=== PATIENT | female | born 1950 | race Caucasian/White ===

== ENCOUNTER → 2019-08-16 | Outpatient (CLI) | payer SELFPAY | PROVIDERS: Family Provider Internal Medicine; Visit Provider Internal Medicine | DX: R05 Cough (principal); Z87.891 Personal history of nicotine dependence ==

== ENCOUNTER → 2019-08-26 14:33 | Outpatient (BNVA) | payer MEDICARE, OTHER, SELFPAY | PROVIDERS: Family Provider Internal Medicine; PCP Internal Medicine; Visit Provider Internal Medicine Rheumatology | DX: M05.79 Rheumatoid arthritis with rheumatoid factor 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 systems involvement (principal); M81.0 Age-related osteoporosis without current pathological fracture; Z79.899 Other long term (current) drug therapy | CPT/HCPCS: 99214 ==

== ENCOUNTER 2019-08-29 09:20 | Outpatient (CLI) | payer MEDICARE, OTHER, SELFPAY | END 2019-08-29 09:21 | disposition home or self-care (01) | LOC: RHEOACUTE 09-12 14:55 | PROVIDERS: Family Provider Internal Medicine; PCP Internal Medicine; Visit Provider Internal Medicine Rheumatology | DX: M05.79 Rheumatoid arthritis with rheumatoid factor 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 systems involvement (principal); Z51.81 Encounter for therapeutic drug level monitoring | CPT/HCPCS: J3262 ==

== ENCOUNTER → 2019-08-29 09:36 | Outpatient (BNVA) | payer MEDICARE, OTHER, SELFPAY | PROVIDERS: Family Provider Internal Medicine; PCP Internal Medicine; Referring Provider Internal Medicine; Visit Provider Internal Medicine Rheumatology | DX: M05.79 Rheumatoid arthritis with rheumatoid factor 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 systems involvement (principal); Z79.899 Other long term (current) drug therapy | CPT/HCPCS: 36415; 96365; 84460; 85025; 85651; 86140; 96374; J3262 ==

== ENCOUNTER 2019-10-12 11:19 | Outpatient (CLI) | payer MEDICARE, OTHER, SELFPAY ==
[2019-10-12 11:45] VITALS: BP 131/75; PULSE 93; RESP 16; TEMP 36.5; O2SAT 97
[2019-10-12 14:00] VITALS: BP 115/80; PULSE 94; RESP 18; TEMP 36.6; O2SAT 90
== END 2019-10-12 11:20 | disposition home or self-care (01) ==
LOC: RHEOACUTE 11:20
PROVIDERS: Family Provider Internal Medicine; PCP Internal Medicine; Visit Provider Internal Medicine Rheumatology
DX: M05.79 Rheumatoid arthritis with rheumatoid factor 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 systems involvement (principal); Z79.899 Other long term (current) drug therapy; M81.0 Age-related osteoporosis without current pathological fracture
CPT/HCPCS: 36415; 80076; 82565; 96365; J3262

== ENCOUNTER 2019-11-29 14:58 | Outpatient (CLI) | payer MEDICARE, OTHER, SELFPAY ==
[2019-11-29 15:10] VITALS: BMI 26.2
[2019-11-29 15:15] VITALS: BP 109/72; PULSE 116; RESP 20; TEMP 36.6; O2SAT 93
[2019-11-29 16:55] VITALS: BP 118/72; PULSE 102; RESP 20; TEMP 37.1; O2SAT 92
== END 2019-11-29 14:59 | disposition home or self-care (01) ==
LOC: RHEOACUTE 14:59
PROVIDERS: Family Provider Internal Medicine; PCP Internal Medicine; Visit Provider Internal Medicine Rheumatology
DX: M05.79 Rheumatoid arthritis with rheumatoid factor 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 systems involvement (principal); Z79.899 Other long term (current) drug therapy
CPT/HCPCS: 36415; 80076; 82565; 85025; 85651; 86140; 96365; J3262

== ENCOUNTER 2019-12-28 12:57 | Outpatient (CLI) | payer MEDICARE, OTHER, SELFPAY ==
[2019-12-28 13:15] VITALS: BP 107/65; PULSE 86; RESP 20; TEMP 36.6; O2SAT 93
[2019-12-28 15:24] VITALS: BP 101/65; PULSE 88; RESP 18; TEMP 36.5; O2SAT 90
== END 2019-12-28 12:58 | disposition home or self-care (01) ==
LOC: RHEOACUTE 12:59
PROVIDERS: Family Provider Internal Medicine; PCP Internal Medicine; Visit Provider Internal Medicine Rheumatology
DX: M05.79 Rheumatoid arthritis with rheumatoid factor 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 systems involvement (principal)
CPT/HCPCS: 96365; J3262

== ENCOUNTER → 2019-12-29 10:40 | Outpatient (BNVA) | payer MEDICARE, OTHER, SELFPAY | PROVIDERS: Family Provider Internal Medicine; PCP Internal Medicine; Visit Provider Internal Medicine Rheumatology | DX: Z79.899 Other long term (current) drug therapy (principal); Z11.59 Encounter for screening for other viral diseases; M05.79 Rheumatoid arthritis with rheumatoid factor 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 systems involvement; Z72.89 Other problems related to lifestyle | CPT/HCPCS: 36415; 80076; 82565; 82728; 85025; 85651; 86140; 86803 ==

== ENCOUNTER 2020-01-31 10:54 | Outpatient (CLI) | payer MEDICARE, OTHER, SELFPAY ==
--- NOTE | 2020-01-31 11:16 | PC.NURSE ---
1115 A&0 X4. refuses PO tylenol and Benadryl as pre medication. States will not take them. Explained of pre medication.
[2020-01-31 11:17] VITALS: BP 106/62; PULSE 91; RESP 18; TEMP 36.6; O2SAT 93
[2020-01-31 13:15] VITALS: BP 108/52; PULSE 72; RESP 18; TEMP 36.6; O2SAT 92
== END 2020-01-31 10:55 | disposition home or self-care (01) ==
LOC: RHEOACUTE 10:55
PROVIDERS: Family Provider Internal Medicine; PCP Internal Medicine; Visit Provider Internal Medicine Rheumatology
DX: M05.79 Rheumatoid arthritis with rheumatoid factor 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 systems involvement (principal)
CPT/HCPCS: 96365; J3262

== ENCOUNTER 2020-03-01 13:47 | Outpatient (CLI) | payer MEDICARE, OTHER, SELFPAY ==
[2020-03-01 13:56] VITALS: BP 120/74; PULSE 96; RESP 16; TEMP 36.8; O2SAT 96
[2020-03-01] MEDS: acetaminophen 325 mg Tablet 975 MG PO (14:05)
[2020-03-01] MEDS: diphenhydrAMINE 25 mg Capsule PO (14:11)
[2020-03-01 16:30] VITALS: BP 117/75; PULSE 98; RESP 16; TEMP 36.7; O2SAT 98
== END 2020-03-01 13:48 | disposition home or self-care (01) ==
LOC: RHEOACUTE 13:47
PROVIDERS: Family Provider Internal Medicine; PCP Internal Medicine; Visit Provider Internal Medicine Rheumatology
DX: M81.0 Age-related osteoporosis without current pathological fracture (principal); R91.1 Solitary pulmonary nodule; M05.79 Rheumatoid arthritis with rheumatoid factor 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 systems involvement; J43.9 Emphysema, unspecified; J44.9 Chronic obstructive pulmonary disease, unspecified; M79.641 Pain in right hand; M79.642 Pain in left hand; Z11.59 Encounter for screening for other viral diseases; Z79.899 Other long term (current) drug therapy; Z71.89 Other specified counseling
CPT/HCPCS: 80076; 82310; 82565; 82607; 82728; 83540; 83550; 84439; 84443; 85025; 85651; 86140; 99214; J3262

== ENCOUNTER 2020-03-15 09:34 | Outpatient (CLI) | payer MEDICARE, OTHER, SELFPAY ==
--- NOTE | 2020-03-15 14:17 | PFTS_ITS ---
Date of Study:03/15/20 Date of Dictation: MECHANICS: Forced vital capacity (FVC) is reduced. Forced expiratory volume in one second (FEV1) is reduced. FEV1/FVC is reduced. FLOW VOLUME LOOP: Reduced flow at all lung volumes with significant scooping. LUNG VOLUMES: Total lung capacity (TLC) is increased. Residual volume (RV) is increased. DIFFUSING CAPACITY FOR CARBON MONOXIDE: Moderately reduced. INTERPRETATION: The pulmonary function tests are consistent with moderate obstruction. Lung volumes are consistent with hyperinflation and air trapping. Gas exchange (DLCO) is moderately reduced. MTDD
== END 2020-03-15 09:35 | disposition home or self-care (01) ==
LOC: RT 09:35
PROVIDERS: Family Provider Internal Medicine; PCP Internal Medicine; Visit Provider Internal Medicine Critical Care Medicine
DX: J44.9 Chronic obstructive pulmonary disease, unspecified (principal)
CPT/HCPCS: 94060; 94726; 94729; J7611

== ENCOUNTER 2020-03-17 12:48 | Emergency (ER) | payer MEDICARE, OTHER, SELFPAY ==
[2020-03-17] VITALS (8 sets, daily range): BP systolic 89–110; BP diastolic 54–62; PULSE 77–89; RESP 16–27; TEMP 37.1; O2SAT 89–97; BMI 26.4
--- NOTE | 2020-03-17 13:35 | XRR_ITS ---
PROCEDURE INFORMATION: Exam: XR Chest, 1 View Exam date and time: 03/17/2020 1:37 PM Age: 69 years old Clinical indication: Cough and shortness of breath; Additional info: Cough, SOB, chest pain TECHNIQUE: Imaging protocol: XR of the chest Views: 1 view. COMPARISON: [facility] Chest 2 views 08/16/2019 11:06 AM FINDINGS: Tubes, catheters and devices: There is a right central line in place extending into the SVC. Lungs: Interstitial congestion is present in the right lower lobe increased since prior examination Pleural space: Unremarkable. No pleural effusion. No pneumothorax. Heart/Mediastinum: Unremarkable. No cardiomegaly. Bones/joints: Unremarkable. Other findings: Otherwise similar findings seen comparing to prior examination XR/XR chest 1V portable [id number] IMPRESSION: 1. Right central line in good position. 2. Right lower lobe interstitial congestion
--- NOTE | 2020-03-17 13:36 | ECG_ITS ---
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 Measurements Intervals [place] Rate: 86 P: 0 [place]: 151 QRS: 38 QRSD: 81 T: 41 QT: 346 QTc: 415 Interpretive Statements SINUS RHYTHM Compared to ECG 10/03/2018 01:04:33 No significant changes Electronically Signed On 03-17-2020 20:42:40 CDT by Adenike Ruano M.D. [email or web address] [email or web address].[employer]/store/NU/[id number] f
--- NOTE | 2020-03-17 13:39 | W.ED.SOB ---
HPI - SOB/Dyspnea General: Chief Complaint: Shortness of Breath/Dyspnea Stated Complaint: low o2 Time Seen by Provider: 03/17/20 13:21 History of Present Illness: HPI Narrative: This patient is a 69-year-old female presenting with shortness of breath, chest pain and diarrhea. She has a history of COPD and feels as though she is having an exacerbation. She has been having increasing shortness of breath for about 3 days. She also has been having chest pain which is something she has not had in the past. This started 2 days ago and is intermittent. She is not able to really identify a pattern to when it occurs. She has been having diarrhea for about a week. She said this started shortly after she had surgery on her right eye for cataracts. Off work for a year because of brain aneurysms that required multiple interventions. She also has rheumatoid arthritis and is on leflunomide. She denies any COVID exposure. She said she really has not been going out at all. No fever. No sick contacts. She has a productive cough but that is unchanged from her baseline. Shortness of breath is made worse by exertion and better by oxygen. She used her inhaler this morning without relief. Diarrhea is worse with any intake of food or fluid. MD elicited complaint: shortness of breath, cough and chest pain Pertinent past history: COPD Onset (ago): week(s) (2 days for the chest pain, 3 days for shortness of breath, 1 week for diarrhea) Timing: constant Severity: moderate Associated symptoms: Reports chest pain, nausea (She has chronic nausea since her aneurysm procedures but she threw up yesterday which is unusual) and vomiting; Deny abdominal pain or fever(s) Review of Systems General: Reports: 10 or more systems reviewed and unremarkable except in HPI and below Const: Denies: fever(s), chills, fatigue or malaise Eyes: Denies: change in vision ENMT: Denies: odynophagia Card: Reports: chest pain and dyspnea on exertion; Denies: swelling of feet/ankles Resp: Reports: dyspnea, productive cough and wheezing; Denies: non-productive cough GI: Reports: nausea (She has chronic nausea since her aneurysm procedures but she threw up yesterday which is unusual) and vomiting; Denies: abdominal pain : Denies: flank pain or difficulty voiding Musc: Denies: neck pain or back pain Skin/Breast: Denies: rash Neuro: Denies: headache(s), numbness in extremities or weakness in extremities Rick/Lymph: Denies: easy bruising or easy bleeding PFSH ED PFSH: Medical History COPD (chronic obstructive pulmonary disease) Emphysema of lung High risk medication use Immunization counseling Rheumatoid arthritis with rheumatoid factor 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 systems involvement Surgical History H/O brain surgery x7 H/O tubal ligation Family History Other CAD (coronary artery disease) Cancer Rheumatoid arthritis Stroke Denies family history of Diabetes Chronic kidney disease (CKD) Systemic lupus erythematosus (SLE) in adult Hypertension Social History Smoking and tobacco status: former smoker Quit status (tobacco): has quit using tobacco Year quit tobacco: 2004 - 1PPD x 50 Years Alcohol intake: never Lives independently: Yes Household members: spouse Marital status: Current occupational status: unemployed History of recent travel: No Current gender identity: Female Physical Exam Const: COMMON NORMALS: no acute distress, patient oriented x3, no limitations and alert GENERAL APPEARANCE: cooperative and comfortable HENMT: HEAD & SCALP: normal to inspection FACE & SINUS: normal facial exam Eye: GENERAL EYE: appearance normal, both eyes and all related structures Neck/C-Spine: COMMON NORMALS: supple, no meningeal signs and no JVD Chest: COMMONS NORMALS: normal inspection of the chest Resp: COMMON NORMALS: normal respiratory effort, No use of accessory muscles and clear to auscultation bilaterally AUSCULTATION: clear to auscultation bilaterally, rhonchi right upper and right lower and wheezes throughout Cardio: COMMON NORMALS: no JVD, regular rate, regular rhythm and No murmurs present (Cardio) RATE: regular rate RHYTHM: regular rhythm GI: COMMON NORMALS: Normal to inspection, nondistended, normoactive bowel sounds present, Soft to palpation and non-tender INSPECTION: Yes normal to inspection AUSCULTATION: Yes normoactive bowel sounds PALPATION: Yes Soft to palpation Back/Pelvis: COMMON NORMALS: thoracic and lumbar spine normal to inspection Extremity: COMMON NORMALS: normal to inspection Neuro: COMMON NORMALS: patient oriented x3, moves all extremities, no focal motor deficits and no sensory deficits noted SENSORIUM/ORIENTATION: Yes alert MENINGEAL SIGNS: Yes no meningeal signs Psych: COMMON NORMALS: mental status grossly normal, cooperative and normal affect Skin: COMMON NORMALS: no rashes or lesions noted and turgor normal GENERAL SKIN EXAM: no rashes or lesions noted and turgor normal Course ED course: Patient seems to have pneumonia based on her chest x-ray. There is really nothing about the presentation that makes me feel like it would be COVID rather than a simple community-acquired pneumonia. She did not want to be admitted to the hospital. We discussed that given her comorbidities of COPD and being on the rheumatoid arthritis medications that she is at risk for worsening condition. She understands it does not want to stay. She has oxygen at home. She can take oral medications she is not vomiting. Her labs were fairly unremarkable. Her white count is low but appears that that is count of her baseline. She is a little bit anemic as well but that also appears to be baseline. I offered her the option to return at any time should she change her mind about admission. I also asked her to please return if she is worse in any way. She agrees to do so. Vital Signs: Vital signs: Vital Signs Temperature 98.8 F 03/17/20 12:55 Pulse Rate 88 03/17/20 16:38 Respiratory Rate 19 H 03/17/20 16:38 Blood Pressure 98/55 03/17/20 16:38 Pulse Oximetry 97 03/17/20 16:38 MDM - SOB/Dyspnea Lab Data: Labs: Lab Results 03/17/20 03/17/20 03/17/20 Range/Units 13:25 13:25 13:25 WBC 3.2 L (4.0-10.0) 10^3/ uL RBC 2.75 L (4.1-5.3) 10^6/u L Hgb 9.2 L (11.5-15.3) g/dL Hct 30.3 L (37.0-47.0) % MCV 110.2 H (81-99) fL MCH 33.5 (28.0-34.0) pg MCHC 30.4 (30.0-36.0) g/dL RDW 13.5 (12.1-15.1) % Plt Count 126 L (130-400) 10^3/c mm MPV 10.5 H (7.4-10.4) fL Neut % (Auto) 71.9 % Lymph % (Auto) 16.4 % [place] % (Auto) 6.8 % Eos % (Auto) 3.7 % Baso % (Auto) 0.6 % Neut # (Auto) 2.33 (1.8-7.7) 10^3/u L Lymph # (Auto) 0.5 L (0.8-4.8) 10^3/u L [place] # (Auto) 0.2 (0.2-0.9) 10^3/u L Eos # (Auto) 0.1 (0.0-0.8) 10^3/u L Baso # (Auto) 0.0 (0.0-0.1) 10^3/u L Nucleated RBC % (a uto) 0 % Nucleated RBCs # 0.0 /100WBC Sodium 136 (136-145) mmol/L Potassium 3.8 (3.5-5.1) mmol/L Chloride 103 (98-107) mmol/L Carbon Dioxide 24 (22-29) mmol/L Anion Gap 12.8 (5-19) BUN 8 (8-23) mg/dL Creatinine 0.9 (0.5-0.9) mg/dL GFR Calculation 61.9 L (90-130) mL/min Glucose 110 (65-115) mg/dL Calculated Osmolal ity 279 L (285-295) mOsm/k g Calcium 8.7 (8.5-10.5) mg/dL Total Bilirubin 0.2 (0.15-1.2) mg/dL AST 27 (0-32) U/L ALT 14 (0-33) U/L Alkaline Phosphata se 98 (35-105) IU/L Troponin T Baselin e 6 (0-10) ng/L Troponin T 120 Min sri (0-10) ng/L NT-Pro-B Natriuret Pep 493 H (0-125) pg/mL Total Protein 5.9 L (6.6-8.7) g/dL Albumin 4.3 (3.5-5.2) g/dL Globulin 1.6 (1.3-4.6) g/dL Lipase 15 (13-60) U/L 03/17/20 Range/Units 15:29 WBC (4.0-10.0) 10^3/ uL RBC (4.1-5.3) 10^6/u L Hgb (11.5-15.3) g/dL Hct (37.0-47.0) % MCV (81-99) fL MCH (28.0-34.0) pg MCHC (30.0-36.0) g/dL RDW (12.1-15.1) % Plt Count (130-400) 10^3/c mm MPV (7.4-10.4) fL Neut % (Auto) % Lymph % (Auto) % [place] % (Auto) % Eos % (Auto) % Baso % (Auto) % Neut # (Auto) (1.8-7.7) 10^3/u L Lymph # (Auto) (0.8-4.8) 10^3/u L [place] # (Auto) (0.2-0.9) 10^3/u L Eos # (Auto) (0.0-0.8) 10^3/u L Baso # (Auto) (0.0-0.1) 10^3/u L Nucleated RBC % (a uto) % Nucleated RBCs # /100WBC Sodium (136-145) mmol/L Potassium (3.5-5.1) mmol/L Chloride (98-107) mmol/L Carbon Dioxide (22-29) mmol/L Anion Gap (5-19) BUN (8-23) mg/dL Creatinine (0.5-0.9) mg/dL GFR Calculation (90-130) mL/min Glucose (65-115) mg/dL Calculated Osmolal ity (285-295) mOsm/k g Calcium (8.5-10.5) mg/dL Total Bilirubin (0.15-1.2) mg/dL AST (0-32) U/L ALT (0-33) U/L Alkaline Phosphata se (35-105) IU/L Troponin T Baselin e (0-10) ng/L Troponin T 120 Min sri 9.80 (0-10) ng/L NT-Pro-B Natriuret Pep (0-125) pg/mL Total Protein (6.6-8.7) g/dL Albumin (3.5-5.2) g/dL Globulin (1.3-4.6) g/dL Lipase (13-60) U/L Discharge Plan Discharge Patient Disposition: Home Clinical Impression: Pneumonia Qualifiers: Pneumonia type: due to unspecified organism Laterality: unspecified laterality Lung location: unspecified part of lung Qualified Code(s): J18.9 - Pneumonia, unspecified organism COPD (chronic obstructive pulmonary disease) Qualifiers: COPD type: unspecified COPD Qualified Code(s): J44.9 - Chronic obstructive pulmonary disease, unspecified Condition: Stable Prescriptions: New doxycycline hyclate 100 mg capsule 100 mg PO BID 10 Days Qty: 20 RF: 0 No Action cyclobenzaprine 10 mg tablet 10 mg PO TID PRN (Reason: UNKNOWN) RF: 0 ascorbic acid-collagen 125-740 mg capsule 1 cap PO DAILY RF: 0 folic acid 1 mg tablet 1 mg PO DAILY RF: 0 duloxetine [Cymbalta] 30 mg capsule,delayed release(DR/EC) 60 mg PO DAILY RF: 0 sertraline [Zoloft] 100 mg tablet 100 mg PO DAILY RF: 0 multivitamin Capsule 1 cap PO QAM RF: 0 levetiracetam 500 mg tablet 500 mg PO BID RF: 0 leflunomide 20 mg tablet 20 mg PO DAILY Qty: 90 RF: 0 ondansetron 4 mg tablet,disintegrating 4 - 8 mg PO Q6H PRN (Reason: Nausea) RF: 0 albuterol sulfate 2.5 mg /3 mL (0.083 %) solution for nebulization 2.5 mg INHALATION Q4H PRN (Reason: Shortness Of Breath) RF: 0 Trelegy Ellipta 100-62.5-25 mcg blister with device 1 inh INHALATION Q24H 90 Days Qty: 60 RF: 3 tramadol 50 mg Tablet 50 mg PO BID PRN (Reason: Pain) RF: 0 sulfasalazine 500 mg tablet 1,000 mg PO BID RF: 0 albuterol sulfate 90 mcg/actuation HFA aerosol inhaler 2 puff inhalation Q4H PRN (Reason: UNKNOWN) RF: 0 diclofenac sodium 1 % gel 2 gm TOPICAL QID PRN (Reason: UNKNOWN) RF: 0 prednisolone acetate 1 % drops,suspension 1 drp ophthalmic (eye) QID RF: 0 ibuprofen 200 mg Tablet 400 mg PO PRN RF: 0 turmeric 3 tab PO DAILY RF: 0 Discharge Orders: Discharge Order (Routine); Ordered 03/17/20 Ordered By: Angely Celis Referrals: Cornel Hu, [Primary Care Provider] - Discharge Diet: Usual diet Discharge Activity: Resume usual activity Patient Instructions: Pneumonia (ED) Activity Restrictions/Additional Instructions: PLEASE return to the emergency department immediately if you feel like you are worse in any way. Pneumonia can be very serious or life-threatening particularly with your other medical issues. Schedule follow-up appointment with Dr. Hu next week. Take the doxycycline as prescribed until all tablets are gone. Continue using your home oxygen. Coding Level of Care Code ED Emergency Communications Operator for [place] Fwd Exam Comprehensive
[2020-03-17 14:02] LABS: Basophils % 0.6 %; Eosinophils # 0.1 10^3/uL (0.0-0.8); Eosinophils % 3.7 %; Hematocrit 30.3 % (37.0-47.0); Hemoglobin 9.2 g/dL (11.5-15.3); Lymphocytes # 0.5 10^3/uL (0.8-4.8); Lymphocytes % 16.4 %; Mean Corpuscular HGB Conc 30.4 g/dL (30.0-36.0); Mean Corpuscular Hemoglobin 33.5 pg (28.0-34.0); Mean Corpuscular Volume 110.2 fL (81-99); Mean Platelet Volume 10.5 fL (7.4-10.4); Monocytes # 0.2 10^3/uL (0.2-0.9); Monocytes % 6.8 %; Neutrophils # 2.33 10^3/uL (1.8-7.7); Neutrophils % 71.9 %; Nucleated Red Blood Cells % 0 %; Platelet Count 126 10^3/cmm (130-400); Red Blood Count 2.75 10^6/uL (4.1-5.3); Red Cell Distribution Width 13.5 % (12.1-15.1); White Blood Count 3.2 10^3/uL (4.0-10.0)
[2020-03-17 14:16] LABS: Troponin(5th) Baseline 6 ng/L (0-10)
[2020-03-17 14:24] LABS: Alanine Aminotransferase 14 U/L (0-33); Albumin Level 4.3 g/dL (3.5-5.2); Alkaline Phosphatase 98 IU/L (35-105); Anion Gap 12.8 (5-19); Aspartate Amino Transferase 27 U/L (0-32); Blood Urea Nitrogen 8 mg/dL (8-23); Calcium 8.7 mg/dL (8.5-10.5); Carbon Dioxide 24 mmol/L (22-29); Chloride 103 mmol/L (98-107); Globulin 1.6 g/dL (1.3-4.6); Glomerular Filtration Rate 61.9 mL/min (90-130); Glucose 110 mg/dL (65-115); Lipase 15 U/L (13-60); NT Pro B Type Natriuretic Pept 493 pg/mL (0-125); Osmolality Calculated 279 mOsm/kg (285-295); Potassium 3.8 mmol/L (3.5-5.1); Sodium 136 mmol/L (136-145); Total Bilirubin 0.2 mg/dL (0.15-1.2); Total Protein 5.9 g/dL (6.6-8.7)
--- NOTE | 2020-03-17 15:36 | ECG_ITS ---
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 Measurements Intervals [place] Rate: 76 P: 37 [place]: 170 QRS: 50 QRSD: 82 T: 47 QT: 372 QTc: 420 Interpretive Statements SINUS RHYTHM Compared to ECG 03/17/2020 13:04:30 No significant changes Electronically Signed On 03-17-2020 20:48:10 CDT by Adenike Ruano M.D. [email or web address] mississippi medical centerComputewayne hospital.[employer] - [employer]/store/NU/[id number] f
[2020-03-17] MEDS: cefTRIAXone 1,000 MG in sodium chloride 0.9% (plus) 50 ML 100 MG IV (15:59)
[2020-03-17] MEDS: azithromycin 250 mg Tablet 500 MG PO (15:59)
[2020-03-17] MEDS: albuterol 8 gm MDI 2 PUFF INHALATION (16:12)
== END 2020-03-17 17:01 | disposition home or self-care (01) ==
PROVIDERS: Emergency Provider Emergency Medicine; PCP Internal Medicine
DX: J44.0 Chronic obstructive pulmonary disease with (acute) lower respiratory infection (principal); J18.9 Pneumonia, unspecified organism; Z87.891 Personal history of nicotine dependence
CPT/HCPCS: 12345; 36415; 71045; 80053; 83690; 83880; 84484; 85025; 93005; 94640; 96374; 99284; J0696; J3535; Q0144

== ENCOUNTER 2020-03-19 13:23 | Emergency (ER) | payer MEDICARE, OTHER, SELFPAY ==
[2020-03-19] VITALS (11 sets, daily range): BP systolic 89–124; BP diastolic 53–87; PULSE 77–95; RESP 14–27; TEMP 36.7; O2SAT 88–99; BMI 25.7
--- NOTE | 2020-03-19 14:13 | XR_ITS ---
WS: [id number] PORTABLE CHEST HISTORY: dyspnea/cough COMPARISON: 03/17/2020 COAGULATING OPERATOR shunt catheter projects over the RIGHT thorax. Lung volumes are decreased with thick interstitial markings at the lung bases, similar to the prior s tudy. Vasculature is normal. No pleural effusion or pneumothorax. Cardiac size: Normal. Mediastinum/Aorta: Mild atherosclerosis aorta. No osseous abnormality seen. XR/XR chest 1V portable [id number] IMPRESSION: Bibasilar areas of pneumonitis, RIGHT greater than LEFT.
--- NOTE | 2020-03-19 14:14 | ECG_ITS ---
[facility] Test Date: 2020-03-19 Pat Name: Whitney Dial Department: Room: Gender: Female Crystal Lapper: : 1950 Requested By: Chidi Howell Order Number: [id number] Ascencion MD: Adenike Ruano M.D. Measurements Intervals [place] Rate: 84 P: 31 [place]: 153 QRS: 33 QRSD: 78 T: 42 QT: 338 QTc: 402 Interpretive Statements SINUS RHYTHM Compared to ECG 03/17/2020 15:39:48 No significant changes Electronically Signed On 03-19-2020 20:32:33 CDT by Adenike Ruano M.D. [email or web address] Pharmaceuticalseast mississippi state hospitalUbiquigentcleveland clinic children's hospital for rehabilitation.pSi[employer]/store/OM/[id number]
[2020-03-19 14:41] LABS: Basophils % 0.4 %; Eosinophils % 1.3 %; Hematocrit 35.1 % (37.0-47.0); Hemoglobin 10.5 g/dL (11.5-15.3); Lymphocytes # 0.8 10^3/uL (0.8-4.8); Lymphocytes % 34.7 %; Mean Corpuscular HGB Conc 29.9 g/dL (30.0-36.0); Mean Corpuscular Hemoglobin 33.2 pg (28.0-34.0); Mean Corpuscular Volume 111.1 fL (81-99); Mean Platelet Volume 10.5 fL (7.4-10.4); Monocytes # 0.1 10^3/uL (0.2-0.9); Monocytes % 4.9 %; Neutrophils # 1.31 10^3/uL (1.8-7.7); Neutrophils % 58.3 %; Nucleated Red Blood Cells % 0 %; Platelet Count 99 10^3/cmm (130-400); Red Blood Count 3.16 10^6/uL (4.1-5.3); Red Cell Distribution Width 13.3 % (12.1-15.1); White Blood Count 2.3 10^3/uL (4.0-10.0)
--- NOTE | 2020-03-19 14:41 | W.ED.GENADLT ---
Documented by User: Chidi Larios DO 03/23/20 15:19 HPI - General Adult General: Chief complaint: General Medical Stated complaint: multiple complaints Time Seen by Provider: 03/19/20 13:42 History of Present Illness: HPI narrative: 69-year-old female she was seen 2 days ago here in the emergency room and offered admission and declined she returns today with the same problem that she feels is slightly worsened. When she was seen 2 days ago at the time of discharge she was discharged home on doxycycline. She has been taking it but has noticed it upsets her stomach. She has been having multiple watery stools daily. She denies any hematochezia or melena. She denies any vomiting has not had any hematemesis. She is very nauseated. She also feels like her breathing has worsened since she was here last she does use albuterol nebs at home and use 1 last this morning. She is not really been running a fever at all her baseline cough however has changed it is increased in volume and changed in character as well sputum is thicker and has changed color. Patient has been seeing Dr. Carmona for COPD and actually yesterday had a pulmonary function test done. She is on multiple inhaled medications including nebulizers for rescue as needed. Onset (ago): day(s) Location: abdomen Radiation: non-radiation Severity: severe Quality: aching Pain Consistency: constant Relieving factors: none Exacerbating factors: none Associated symptoms: Reports cough, decreased appetite, dyspnea, malaise, nausea, short of breath, vomiting, weakness and other (Diarrhea); Deny chest pain, confusion, fevers/chills, headache(s), rash, palpitations, seizures or syncope Treatments prior to arrival: other (Antidiarrheals and doxycycline given to her previously) Review of Systems Const: Reports: malaise ENMT: Denies: throat pain, ear or mastoid pain, nasal discharge or nasal congestion Card: Denies: chest pain, palpitations or syncope Resp: Reports: dyspnea GI: Reports: nausea and vomiting : Denies: flank pain, difficulty voiding, dysuria, urinary frequency or urinary urgency Skin/Breast: Denies: rash or pruritus Neuro: Denies: headache(s) or confusion PFS ED PFSH: Medical History COPD (chronic obstructive pulmonary disease) Emphysema of lung High risk medication use Immunization counseling Rheumatoid arthritis with rheumatoid factor 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 systems involvement Surgical History H/O brain surgery x7 H/O tubal ligation Family History Other CAD (coronary artery disease) Cancer Rheumatoid arthritis Stroke Denies family history of Diabetes Chronic kidney disease (CKD) Systemic lupus erythematosus (SLE) in adult Hypertension Social History Smoking and tobacco status: former smoker Quit status (tobacco): has quit using tobacco Year quit tobacco: 2004 - 1PPD x 50 Years Alcohol intake: never Lives independently: Yes Household members: spouse Marital status: Current occupational status: unemployed History of recent travel: No Current gender identity: Female Physical Exam Const: COMMON NORMALS: no acute distress GENERAL APPEARANCE: cooperative and comfortable ORIENTATION/CONSCIOUSNESS: Yes awake, Yes oriented to person, Yes oriented to place and Yes oriented to time HENMT: COMMON NORMALS: normocephalic and atraumatic HEAD & SCALP: normocephalic and atraumatic Eye: COMMON NORMALS: Equal, round and reactive pupils present, EOMs intact bilaterally, conjunctivae normal and no scleral icterus CONJUNCTIVA: Yes conjunctivae normal PUPIL: Yes Equal, round and reactive pupils present Neck/C-Spine: COMMON NORMALS: full ROM, no lymphadenopathy, supple and no JVD Lymph: LYMPHATIC: no lymphadenopathy noted and no lymphedema noted Resp: COMMON NORMALS: normal respiratory effort, No retractions, No use of accessory muscles and clear to auscultation bilaterally AUSCULTATION: clear to auscultation bilaterally Cardio: COMMON NORMALS: no JVD, regular rate, regular rhythm and No murmurs present (Cardio) RATE: regular rate RHYTHM: regular rhythm GI: COMMON NORMALS: Soft to palpation and No hepatosplenomegaly present AUSCULTATION: Yes normoactive bowel sounds PALPATION: Yes Soft to palpation, No Tenderness to palpation present (GI), No Guarding due to palpation present (GI) and Yes No hepatosplenomegaly present Extremity: COMMON NORMALS: normal to inspection, capillary refill normal, no clubbing, cyanosis or edema, no calf tenderness and no pedal edema Neuro: SENSORIUM/ORIENTATION: Yes oriented to person, Yes oriented to place and Yes oriented to time Skin: COMMON NORMALS: no rashes or lesions noted GENERAL SKIN EXAM: no rashes or lesions noted Course Vital Signs: Vital signs: Vital Signs Temperature 98.1 F 03/19/20 13:29 Pulse Rate 83 03/19/20 22:34 Respiratory Rate 20 H 03/19/20 22:34 Blood Pressure 108/65 03/19/20 22:34 Pulse Oximetry 96 03/19/20 22:34 MDM - General Adult MDM Narrative: Medical decision making narrative: Care transferred to Dr. Ruiz at change of shift Lab Data: Labs: Lab Results 03/19/20 03/19/20 03/19/20 Range/Units 14:35 14:35 14:35 WBC 2.3 L (4.0-10.0) 10^3/ uL RBC 3.16 L (4.1-5.3) 10^6/u L Hgb 10.5 L (11.5-15.3) g/dL Hct 35.1 L (37.0-47.0) % MCV 111.1 H (81-99) fL MCH 33.2 (28.0-34.0) pg MCHC 29.9 L (30.0-36.0) g/dL RDW 13.3 (12.1-15.1) % Plt Count 99 L (130-400) 10^3/c mm MPV 10.5 H (7.4-10.4) fL Neut % (Auto) 58.3 % Lymph % (Auto) 34.7 % Darke % (Auto) 4.9 % Eos % (Auto) 1.3 % Baso % (Auto) 0.4 % Neut # (Auto) 1.31 L (1.8-7.7) 10^3/u L Lymph # (Auto) 0.8 (0.8-4.8) 10^3/u L Darke # (Auto) 0.1 L (0.2-0.9) 10^3/u L Eos # (Auto) 0.0 (0.0-0.8) 10^3/u L Baso # (Auto) 0.0 (0.0-0.1) 10^3/u L Nucleated RBC % (a uto) 0 % Nucleated RBCs # 0.0 /100WBC Fibrinogen (174-498) mg/dL D-Dimer (0-0.59) ug/mIFE U Specimen Type Sample Site ABG pH (7.35-7.45) ABG pCO2 (35-45) mmHg ABG pO2 (80.0-100.0) mmH g ABG HCO3 (22-26) mmol/L ABG O2 Saturation ABG Base Excess (-2.0-2.0) mmol/ L Reji Test A-a O2 Gradient (5-10) mmHg Hematocrit (37-47) % Hgb O2 Saturation (95-100) % Carboxyhemoglobin (0.4-20.1) %THgb Methemoglobin (0.4-1.5) % Total Hemoglobin (12-16) g/dL Ionized Calcium (1.1-1.4) mmol/L O2 Delivery Device O2 Liters/Min % FiO2 % Engineering Systems Analyst ID Sodium 138 (136-145) mmol/L Potassium 4.5 (3.5-5.1) mmol/L Chloride 106 (98-107) mmol/L Carbon Dioxide 23 (22-29) mmol/L Anion Gap 13.5 (5-19) BUN 11 (8-23) mg/dL Creatinine 0.7 (0.5-0.9) mg/dL GFR Calculation 82.7 L (90-130) mL/min Glucose 89 (65-115) mg/dL Calculated Osmolal ity 282 L (285-295) mOsm/k g Lactic Acid 1.5 (0.5-2.2) mmol/L Calcium 8.0 L (8.5-10.5) mg/dL Total Bilirubin 0.2 (0.15-1.2) mg/dL AST 44 H (0-32) U/L ALT 17 (0-33) U/L Alkaline Phosphata se 86 (35-105) IU/L Lactate Dehydrogen ase (135-214) U/L Troponin T Baselin e (0-10) ng/L Troponin T 120 Min [place] (0-10) ng/L Delta Troponin T (0-10) ABS# Troponin T Hi Sens 6Hr (0-10) ng/L Troponin T Hi Sens 6Hr Delta (0-12) ng/L C-Reactive Protein (0.0-4.9) mg/L Total Protein 6.3 L (6.6-8.7) g/dL Albumin 4.0 (3.5-5.2) g/dL Globulin 2.3 (1.3-4.6) g/dL Procalcitonin (0-0.5) ng/mL Urine Color (Yellow) Urine Appearance (CLEAR) Urine pH (5-7) Ur Specific Gravit y (1.005-1.030) Urine Protein (Negative) Urine Glucose (UA) (Normal) Urine Ketones (Negative) Urine Blood (Negative) Urine Nitrate (Negative) Urine Bilirubin (NEGATIVE) Urine Urobilinogen (Negative) mg/dL Ur Leukocyte Genesis ase (Negative) SARS-CoV-2 Ag (Rap id) (Negative) 03/19/20 03/19/20 03/19/20 Range/Units 14:35 14:35 14:35 WBC (4.0-10.0) 10^3/ uL RBC (4.1-5.3) 10^6/u L Hgb (11.5-15.3) g/dL Hct (37.0-47.0) % MCV (81-99) fL MCH (28.0-34.0) pg MCHC (30.0-36.0) g/dL RDW (12.1-15.1) % Plt Count (130-400) 10^3/c mm MPV (7.4-10.4) fL Neut % (Auto) % Lymph % (Auto) % Darke % (Auto) % Eos % (Auto) % Baso % (Auto) % Neut # (Auto) (1.8-7.7) 10^3/u L Lymph # (Auto) (0.8-4.8) 10^3/u L Darke # (Auto) (0.2-0.9) 10^3/u L Eos # (Auto) (0.0-0.8) 10^3/u L Baso # (Auto) (0.0-0.1) 10^3/u L Nucleated RBC % (a uto) % Nucleated RBCs # /100WBC Fibrinogen 292 (174-498) mg/dL D-Dimer 3.63 H (0-0.59) ug/mIFE U Specimen Type Sample Site ABG pH (7.35-7.45) ABG pCO2 (35-45) mmHg ABG pO2 (80.0-100.0) mmH g ABG HCO3 (22-26) mmol/L ABG O2 Saturation ABG Base Excess (-2.0-2.0) mmol/ L Reji Test A-a O2 Gradient (5-10) mmHg Hematocrit (37-47) % Hgb O2 Saturation (95-100) % Carboxyhemoglobin (0.4-20.1) %THgb Methemoglobin (0.4-1.5) % Total Hemoglobin (12-16) g/dL Ionized Calcium (1.1-1.4) mmol/L O2 Delivery Device O2 Liters/Min % FiO2 % Engineering Systems Analyst ID Sodium (136-145) mmol/L Potassium (3.5-5.1) mmol/L Chloride (98-107) mmol/L Carbon Dioxide (22-29) mmol/L Anion Gap (5-19) BUN (8-23) mg/dL Creatinine (0.5-0.9) mg/dL GFR Calculation (90-130) mL/min Glucose (65-115) mg/dL Calculated Osmolal ity (285-295) mOsm/k g Lactic Acid (0.5-2.2) mmol/L Calcium (8.5-10.5) mg/dL Total Bilirubin (0.15-1.2) mg/dL AST (0-32) U/L ALT (0-33) U/L Alkaline Phosphata se (35-105) IU/L Lactate Dehydrogen ase 316 H (135-214) U/L Troponin T Baselin e 11 H (0-10) ng/L Troponin T 120 Min [place] (0-10) ng/L Delta Troponin T (0-10) ABS# Troponin T Hi Sens 6Hr (0-10) ng/L Troponin T Hi Sens 6Hr Delta (0-12) ng/L C-Reactive Protein 0.3 (0.0-4.9) mg/L Total Protein (6.6-8.7) g/dL Albumin (3.5-5.2) g/dL Globulin (1.3-4.6) g/dL Procalcitonin 0.04 (0-0.5) ng/mL Urine Color (Yellow) Urine Appearance (CLEAR) Urine pH (5-7) Ur Specific Gravit y (1.005-1.030) Urine Protein (Negative) Urine Glucose (UA) (Normal) Urine Ketones (Negative) Urine Blood (Negative) Urine Nitrate (Negative) Urine Bilirubin (NEGATIVE) Urine Urobilinogen (Negative) mg/dL Ur Leukocyte Genesis ase (Negative) SARS-CoV-2 Ag (Rap id) (Negative) 03/19/20 03/19/20 03/19/20 Range/Units 14:57 15:19 16:00 WBC (4.0-10.0) 10^3/ uL RBC (4.1-5.3) 10^6/u L Hgb (11.5-15.3) g/dL Hct (37.0-47.0) % MCV (81-99) fL MCH (28.0-34.0) pg MCHC (30.0-36.0) g/dL RDW (12.1-15.1) % Plt Count (130-400) 10^3/c mm MPV (7.4-10.4) fL Neut % (Auto) % Lymph % (Auto) % Darke % (Auto) % Eos % (Auto) % Baso % (Auto) % Neut # (Auto) (1.8-7.7) 10^3/u L Lymph # (Auto) (0.8-4.8) 10^3/u L Darke # (Auto) (0.2-0.9) 10^3/u L Eos # (Auto) (0.0-0.8) 10^3/u L Baso # (Auto) (0.0-0.1) 10^3/u L Nucleated RBC % (a uto) % Nucleated RBCs # /100WBC Fibrinogen (174-498) mg/dL D-Dimer (0-0.59) ug/mIFE U Specimen Type Arterial Sample Site Radial, left ABG pH 7.36 (7.35-7.45) ABG pCO2 39.5 (35-45) mmHg ABG pO2 79.0 L (80.0-100.0) mmH g ABG HCO3 22.5 (22-26) mmol/L ABG O2 Saturation 94.8 ABG Base Excess -2.7 L (-2.0-2.0) mmol/ L Reji Test Pos A-a O2 Gradient 12.9 H (5-10) mmHg Hematocrit 31.2 L (37-47) % Hgb O2 Saturation 93.2 L (95-100) % Carboxyhemoglobin 0.3 L (0.4-20.1) %THgb Methemoglobin 1.5 (0.4-1.5) % Total Hemoglobin 10.2 L (12-16) g/dL Ionized Calcium 1.1 (1.1-1.4) mmol/L O2 Delivery Device Nc O2 Liters/Min 3.0 % FiO2 32.0 % Engineering Systems Analyst ID Ed Sodium 139.0 (136-145) mmol/L Potassium 3.9 (3.5-5.1) mmol/L Chloride (98-107) mmol/L Carbon Dioxide (22-29) mmol/L Anion Gap (5-19) BUN (8-23) mg/dL Creatinine (0.5-0.9) mg/dL GFR Calculation (90-130) mL/min Glucose 89.0 (65-115) mg/dL Calculated Osmolal ity (285-295) mOsm/k g Lactic Acid (0.5-2.2) mmol/L Calcium (8.5-10.5) mg/dL Total Bilirubin (0.15-1.2) mg/dL AST (0-32) U/L ALT (0-33) U/L Alkaline Phosphata se (35-105) IU/L Lactate Dehydrogen ase (135-214) U/L Troponin T Baselin e (0-10) ng/L Troponin T 120 Min [place] (0-10) ng/L Delta Troponin T (0-10) ABS# Troponin T Hi Sens 6Hr (0-10) ng/L Troponin T Hi Sens 6Hr Delta (0-12) ng/L C-Reactive Protein (0.0-4.9) mg/L Total Protein (6.6-8.7) g/dL Albumin (3.5-5.2) g/dL Globulin (1.3-4.6) g/dL Procalcitonin (0-0.5) ng/mL Urine Color Yellow (Yellow) Urine Appearance Clear (CLEAR) Urine pH 7 (5-7) Ur Specific Gravit y 1.010 (1.005-1.030) Urine Protein Neg (Negative) Urine Glucose (UA) Norm (Normal) Urine Ketones Negative (Negative) Urine Blood Neg (Negative) Urine Nitrate Negative (Negative) Urine Bilirubin Neg (NEGATIVE) Urine Urobilinogen Norm (Negative) mg/dL Ur Leukocyte Genesis ase Negative (Negative) SARS-CoV-2 Ag (Rap id) Positive H (Negative) 03/19/20 03/19/20 Range/Units 16:10 20:24 WBC (4.0-10.0) 10^3/ uL RBC (4.1-5.3) 10^6/u L Hgb (11.5-15.3) g/dL Hct (37.0-47.0) % MCV (81-99) fL MCH (28.0-34.0) pg MCHC (30.0-36.0) g/dL RDW (12.1-15.1) % Plt Count (130-400) 10^3/c mm MPV (7.4-10.4) fL Neut % (Auto) % Lymph % (Auto) % Darke % (Auto) % Eos % (Auto) % Baso % (Auto) % Neut # (Auto) (1.8-7.7) 10^3/u L Lymph # (Auto) (0.8-4.8) 10^3/u L Darke # (Auto) (0.2-0.9) 10^3/u L Eos # (Auto) (0.0-0.8) 10^3/u L Baso # (Auto) (0.0-0.1) 10^3/u L Nucleated RBC % (a uto) % Nucleated RBCs # /100WBC Fibrinogen (174-498) mg/dL D-Dimer (0-0.59) ug/mIFE U Specimen Type Sample Site ABG pH (7.35-7.45) ABG pCO2 (35-45) mmHg ABG pO2 (80.0-100.0) mmH g ABG HCO3 (22-26) mmol/L ABG O2 Saturation ABG Base Excess (-2.0-2.0) mmol/ L Reji Test A-a O2 Gradient (5-10) mmHg Hematocrit (37-47) % Hgb O2 Saturation (95-100) % Carboxyhemoglobin (0.4-20.1) %THgb Methemoglobin (0.4-1.5) % Total Hemoglobin (12-16) g/dL Ionized Calcium (1.1-1.4) mmol/L O2 Delivery Device O2 Liters/Min % FiO2 % Engineering Systems Analyst ID Sodium (136-145) mmol/L Potassium (3.5-5.1) mmol/L Chloride (98-107) mmol/L Carbon Dioxide (22-29) mmol/L Anion Gap (5-19) BUN (8-23) mg/dL Creatinine (0.5-0.9) mg/dL GFR Calculation (90-130) mL/min Glucose (65-115) mg/dL Calculated Osmolal ity (285-295) mOsm/k g Lactic Acid (0.5-2.2) mmol/L Calcium (8.5-10.5) mg/dL Total Bilirubin (0.15-1.2) mg/dL AST (0-32) U/L ALT (0-33) U/L Alkaline Phosphata se (35-105) IU/L Lactate Dehydrogen ase (135-214) U/L Troponin T Baselin e (0-10) ng/L Troponin T 120 Min [place] 10.58 H (0-10) ng/L Delta Troponin T -0.42 L (0-10) ABS# Troponin T Hi Sens 6Hr 10.78 H (0-10) ng/L Troponin T Hi Sens 6Hr Delta -0.22 L (0-12) ng/L C-Reactive Protein (0.0-4.9) mg/L Total Protein (6.6-8.7) g/dL Albumin (3.5-5.2) g/dL Globulin (1.3-4.6) g/dL Procalcitonin (0-0.5) ng/mL Urine Color (Yellow) Urine Appearance (CLEAR) Urine pH (5-7) Ur Specific Gravit y (1.005-1.030) Urine Protein (Negative) Urine Glucose (UA) (Normal) Urine Ketones (Negative) Urine Blood (Negative) Urine Nitrate (Negative) Urine Bilirubin (NEGATIVE) Urine Urobilinogen (Negative) mg/dL Ur Leukocyte Genesis ase (Negative) SARS-CoV-2 Ag (Rap id) (Negative) Discharge Plan Discharge Patient Disposition: Xfer Short-Term Hosp Clinical Impression: Shortness of breath with exposure to COVID-19 virus, Immunosuppression Referrals: Cornel Hu DO [Primary Care Provider] - Discharge Date/Time: 03/19/20 22:36 Sign Out Sign Out Data: Patient Sign Out occurred on 03/19/20 at 18:25. Patient's care was discussed, and care was transferred from to America Fallon. Coding Level of Care Code ED Hose Stripper for Chg Fwd Exam Comprehensive Documented by User: America Fallon 03/21/20 05:44 HPI - General Adult General: Chief complaint: General Medical Stated complaint: multiple complaints Time Seen by Provider: 03/19/20 13:42 PFSH ED PFSH: Medical History COPD (chronic obstructive pulmonary disease) Emphysema of lung High risk medication use Immunization counseling Rheumatoid arthritis with rheumatoid factor 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 systems involvement Surgical History H/O brain surgery x7 H/O tubal ligation Family History Other CAD (coronary artery disease) Cancer Rheumatoid arthritis Stroke Denies family history of Diabetes Chronic kidney disease (CKD) Systemic lupus erythematosus (SLE) in adult Hypertension Social History Smoking and tobacco status: former smoker Quit status (tobacco): has quit using tobacco Year quit tobacco: 2004 - 1PPD x 50 Years Alcohol intake: never Lives independently: Yes Household members: spouse Marital status: Current occupational status: unemployed History of recent travel: No Current gender identity: Female Course Vital Signs: Vital signs: Vital Signs Temperature 98.1 F 03/19/20 13:29 Pulse Rate 83 03/19/20 22:34 Respiratory Rate 20 H 03/19/20 22:34 Blood Pressure 108/65 03/19/20 22:34 Pulse Oximetry 96 03/19/20 22:34 MDM - General Adult MDM Narrative: Medical decision making narrative: Patient transferred had been previously arranged by Dr. Larios. He had secured transfer to [facility] and [place]. Please see his notes for those details. No time that I had to intervene in the patient's care. She remained stable throughout her ER time and was transferred in a stable condition to [facility]. Lab Data: Labs: Lab Results 03/19/20 03/19/20 03/19/20 Range/Units 14:35 14:35 14:35 WBC 2.3 L (4.0-10.0) 10^3/ uL RBC 3.16 L (4.1-5.3) 10^6/u L Hgb 10.5 L (11.5-15.3) g/dL Hct 35.1 L (37.0-47.0) % MCV 111.1 H (81-99) fL MCH 33.2 (28.0-34.0) pg MCHC 29.9 L (30.0-36.0) g/dL RDW 13.3 (12.1-15.1) % Plt Count 99 L (130-400) 10^3/c mm MPV 10.5 H (7.4-10.4) fL Neut % (Auto) 58.3 % Lymph % (Auto) 34.7 % Darke % (Auto) 4.9 % Eos % (Auto) 1.3 % Baso % (Auto) 0.4 % Neut # (Auto) 1.31 L (1.8-7.7) 10^3/u L Lymph # (Auto) 0.8 (0.8-4.8) 10^3/u L Darke # (Auto) 0.1 L (0.2-0.9) 10^3/u L Eos # (Auto) 0.0 (0.0-0.8) 10^3/u L Baso # (Auto) 0.0 (0.0-0.1) 10^3/u L Nucleated RBC % (a uto) 0 % Nucleated RBCs # 0.0 /100WBC Fibrinogen (174-498) mg/dL D-Dimer (0-0.59) ug/mIFE U Specimen Type Sample Site ABG pH (7.35-7.45) ABG pCO2 (35-45) mmHg ABG pO2 (80.0-100.0) mmH g ABG HCO3 (22-26) mmol/L ABG O2 Saturation ABG Base Excess (-2.0-2.0) mmol/ L Reji Test A-a O2 Gradient (5-10) mmHg Hematocrit (37-47) % Hgb O2 Saturation (95-100) % Carboxyhemoglobin (0.4-20.1) %THgb Methemoglobin (0.4-1.5) % Total Hemoglobin (12-16) g/dL Ionized Calcium (1.1-1.4) mmol/L O2 Delivery Device O2 Liters/Min % FiO2 % Engineering Systems Analyst ID Sodium 138 (136-145) mmol/L Potassium 4.5 (3.5-5.1) mmol/L Chloride 106 (98-107) mmol/L Carbon Dioxide 23 (22-29) mmol/L Anion Gap 13.5 (5-19) BUN 11 (8-23) mg/dL Creatinine 0.7 (0.5-0.9) mg/dL GFR Calculation 82.7 L (90-130) mL/min Glucose 89 (65-115) mg/dL Calculated Osmolal ity 282 L (285-295) mOsm/k g Lactic Acid 1.5 (0.5-2.2) mmol/L Calcium 8.0 L (8.5-10.5) mg/dL Total Bilirubin 0.2 (0.15-1.2) mg/dL AST 44 H (0-32) U/L ALT 17 (0-33) U/L Alkaline Phosphata se 86 (35-105) IU/L Lactate Dehydrogen ase (135-214) U/L Troponin T Baselin e (0-10) ng/L Troponin T 120 Min [place] (0-10) ng/L Delta Troponin T (0-10) ABS# Troponin T Hi Sens 6Hr (0-10) ng/L Troponin T Hi Sens 6Hr Delta (0-12) ng/L C-Reactive Protein (0.0-4.9) mg/L Total Protein 6.3 L (6.6-8.7) g/dL Albumin 4.0 (3.5-5.2) g/dL Globulin 2.3 (1.3-4.6) g/dL Procalcitonin (0-0.5) ng/mL Urine Color (Yellow) Urine Appearance (CLEAR) Urine pH (5-7) Ur Specific Gravit y (1.005-1.030) Urine Protein (Negative) Urine Glucose (UA) (Normal) Urine Ketones (Negative) Urine Blood (Negative) Urine Nitrate (Negative) Urine Bilirubin (NEGATIVE) Urine Urobilinogen (Negative) mg/dL Ur Leukocyte Genesis ase (Negative) SARS-CoV-2 Ag (Rap id) (Negative) 03/19/20 03/19/20 03/19/20 Range/Units 14:35 14:35 14:35 WBC (4.0-10.0) 10^3/ uL RBC (4.1-5.3) 10^6/u L Hgb (11.5-15.3) g/dL Hct (37.0-47.0) % MCV (81-99) fL MCH (28.0-34.0) pg MCHC (30.0-36.0) g/dL RDW (12.1-15.1) % Plt Count (130-400) 10^3/c mm MPV (7.4-10.4) fL Neut % (Auto) % Lymph % (Auto) % Darke % (Auto) % Eos % (Auto) % Baso % (Auto) % Neut # (Auto) (1.8-7.7) 10^3/u L Lymph # (Auto) (0.8-4.8) 10^3/u L Darke # (Auto) (0.2-0.9) 10^3/u L Eos # (Auto) (0.0-0.8) 10^3/u L Baso # (Auto) (0.0-0.1) 10^3/u L Nucleated RBC % (a uto) % Nucleated RBCs # /100WBC Fibrinogen 292 (174-498) mg/dL D-Dimer 3.63 H (0-0.59) ug/mIFE U Specimen Type Sample Site ABG pH (7.35-7.45) ABG pCO2 (35-45) mmHg ABG pO2 (80.0-100.0) mmH g ABG HCO3 (22-26) mmol/L ABG O2 Saturation ABG Base Excess (-2.0-2.0) mmol/ L Reji Test A-a O2 Gradient (5-10) mmHg Hematocrit (37-47) % Hgb O2 Saturation (95-100) % Carboxyhemoglobin (0.4-20.1) %THgb Methemoglobin (0.4-1.5) % Total Hemoglobin (12-16) g/dL Ionized Calcium (1.1-1.4) mmol/L O2 Delivery Device O2 Liters/Min % FiO2 % Engineering Systems Analyst ID Sodium (136-145) mmol/L Potassium (3.5-5.1) mmol/L Chloride (98-107) mmol/L Carbon Dioxide (22-29) mmol/L Anion Gap (5-19) BUN (8-23) mg/dL Creatinine (0.5-0.9) mg/dL GFR Calculation (90-130) mL/min Glucose (65-115) mg/dL Calculated Osmolal ity (285-295) mOsm/k g Lactic Acid (0.5-2.2) mmol/L Calcium (8.5-10.5) mg/dL Total Bilirubin (0.15-1.2) mg/dL AST (0-32) U/L ALT (0-33) U/L Alkaline Phosphata se (35-105) IU/L Lactate Dehydrogen ase 316 H (135-214) U/L Troponin T Baselin e 11 H (0-10) ng/L Troponin T 120 Min [place] (0-10) ng/L Delta Troponin T (0-10) ABS# Troponin T Hi Sens 6Hr (0-10) ng/L Troponin T Hi Sens 6Hr Delta (0-12) ng/L C-Reactive Protein 0.3 (0.0-4.9) mg/L Total Protein (6.6-8.7) g/dL Albumin (3.5-5.2) g/dL Globulin (1.3-4.6) g/dL Procalcitonin 0.04 (0-0.5) ng/mL Urine Color (Yellow) Urine Appearance (CLEAR) Urine pH (5-7) Ur Specific Gravit y (1.005-1.030) Urine Protein (Negative) Urine Glucose (UA) (Normal) Urine Ketones (Negative) Urine Blood (Negative) Urine Nitrate (Negative) Urine Bilirubin (NEGATIVE) Urine Urobilinogen (Negative) mg/dL Ur Leukocyte Genesis ase (Negative) SARS-CoV-2 Ag (Rap id) (Negative) 03/19/20 03/19/20 03/19/20 Range/Units 14:57 15:19 16:00 WBC (4.0-10.0) 10^3/ uL RBC (4.1-5.3) 10^6/u L Hgb (11.5-15.3) g/dL Hct (37.0-47.0) % MCV (81-99) fL MCH (28.0-34.0) pg MCHC (30.0-36.0) g/dL RDW (12.1-15.1) % Plt Count (130-400) 10^3/c mm MPV (7.4-10.4) fL Neut % (Auto) % Lymph % (Auto) % Darke % (Auto) % Eos % (Auto) % Baso % (Auto) % Neut # (Auto) (1.8-7.7) 10^3/u L Lymph # (Auto) (0.8-4.8) 10^3/u L Darke # (Auto) (0.2-0.9) 10^3/u L Eos # (Auto) (0.0-0.8) 10^3/u L Baso # (Auto) (0.0-0.1) 10^3/u L Nucleated RBC % (a uto) % Nucleated RBCs # /100WBC Fibrinogen (174-498) mg/dL D-Dimer (0-0.59) ug/mIFE U Specimen Type Arterial Sample Site Radial, left ABG pH 7.36 (7.35-7.45) ABG pCO2 39.5 (35-45) mmHg ABG pO2 79.0 L (80.0-100.0) mmH g ABG HCO3 22.5 (22-26) mmol/L ABG O2 Saturation 94.8 ABG Base Excess -2.7 L (-2.0-2.0) mmol/ L Reji Test Pos A-a O2 Gradient 12.9 H (5-10) mmHg Hematocrit 31.2 L (37-47) % Hgb O2 Saturation 93.2 L (95-100) % Carboxyhemoglobin 0.3 L (0.4-20.1) %THgb Methemoglobin 1.5 (0.4-1.5) % Total Hemoglobin 10.2 L (12-16) g/dL Ionized Calcium 1.1 (1.1-1.4) mmol/L O2 Delivery Device Nc O2 Liters/Min 3.0 % FiO2 32.0 % Engineering Systems Analyst ID Ed Sodium 139.0 (136-145) mmol/L Potassium 3.9 (3.5-5.1) mmol/L Chloride (98-107) mmol/L Carbon Dioxide (22-29) mmol/L Anion Gap (5-19) BUN (8-23) mg/dL Creatinine (0.5-0.9) mg/dL GFR Calculation (90-130) mL/min Glucose 89.0 (65-115) mg/dL Calculated Osmolal ity (285-295) mOsm/k g Lactic Acid (0.5-2.2) mmol/L Calcium (8.5-10.5) mg/dL Total Bilirubin (0.15-1.2) mg/dL AST (0-32) U/L ALT (0-33) U/L Alkaline Phosphata se (35-105) IU/L Lactate Dehydrogen ase (135-214) U/L Troponin T Baselin e (0-10) ng/L Troponin T 120 Min [place] (0-10) ng/L Delta Troponin T (0-10) ABS# Troponin T Hi Sens 6Hr (0-10) ng/L Troponin T Hi Sens 6Hr Delta (0-12) ng/L C-Reactive Protein (0.0-4.9) mg/L Total Protein (6.6-8.7) g/dL Albumin (3.5-5.2) g/dL Globulin (1.3-4.6) g/dL Procalcitonin (0-0.5) ng/mL Urine Color Yellow (Yellow) Urine Appearance Clear (CLEAR) Urine pH 7 (5-7) Ur Specific Gravit y 1.010 (1.005-1.030) Urine Protein Neg (Negative) Urine Glucose (UA) Norm (Normal) Urine Ketones Negative (Negative) Urine Blood Neg (Negative) Urine Nitrate Negative (Negative) Urine Bilirubin Neg (NEGATIVE) Urine Urobilinogen Norm (Negative) mg/dL Ur Leukocyte Genesis ase Negative (Negative) SARS-CoV-2 Ag (Rap id) Positive H (Negative) 03/19/20 03/19/20 Range/Units 16:10 20:24 WBC (4.0-10.0) 10^3/ uL RBC (4.1-5.3) 10^6/u L Hgb (11.5-15.3) g/dL Hct (37.0-47.0) % MCV (81-99) fL MCH (28.0-34.0) pg MCHC (30.0-36.0) g/dL RDW (12.1-15.1) % Plt Count (130-400) 10^3/c mm MPV (7.4-10.4) fL Neut % (Auto) % Lymph % (Auto) % Darke % (Auto) % Eos % (Auto) % Baso % (Auto) % Neut # (Auto) (1.8-7.7) 10^3/u L Lymph # (Auto) (0.8-4.8) 10^3/u L Darke # (Auto) (0.2-0.9) 10^3/u L Eos # (Auto) (0.0-0.8) 10^3/u L Baso # (Auto) (0.0-0.1) 10^3/u L Nucleated RBC % (a uto) % Nucleated RBCs # /100WBC Fibrinogen (174-498) mg/dL D-Dimer (0-0.59) ug/mIFE U Specimen Type Sample Site ABG pH (7.35-7.45) ABG pCO2 (35-45) mmHg ABG pO2 (80.0-100.0) mmH g ABG HCO3 (22-26) mmol/L ABG O2 Saturation ABG Base Excess (-2.0-2.0) mmol/ L Reji Test A-a O2 Gradient (5-10) mmHg Hematocrit (37-47) % Hgb O2 Saturation (95-100) % Carboxyhemoglobin (0.4-20.1) %THgb Methemoglobin (0.4-1.5) % Total Hemoglobin (12-16) g/dL Ionized Calcium (1.1-1.4) mmol/L O2 Delivery Device O2 Liters/Min % FiO2 % Engineering Systems Analyst ID Sodium (136-145) mmol/L Potassium (3.5-5.1) mmol/L Chloride (98-107) mmol/L Carbon Dioxide (22-29) mmol/L Anion Gap (5-19) BUN (8-23) mg/dL Creatinine (0.5-0.9) mg/dL GFR Calculation (90-130) mL/min Glucose (65-115) mg/dL Calculated Osmolal ity (285-295) mOsm/k g Lactic Acid (0.5-2.2) mmol/L Calcium (8.5-10.5) mg/dL Total Bilirubin (0.15-1.2) mg/dL AST (0-32) U/L ALT (0-33) U/L Alkaline Phosphata se (35-105) IU/L Lactate Dehydrogen ase (135-214) U/L Troponin T Baselin e (0-10) ng/L Troponin T 120 Min [place] 10.58 H (0-10) ng/L Delta Troponin T -0.42 L (0-10) ABS# Troponin T Hi Sens 6Hr 10.78 H (0-10) ng/L Troponin T Hi Sens 6Hr Delta -0.22 L (0-12) ng/L C-Reactive Protein (0.0-4.9) mg/L Total Protein (6.6-8.7) g/dL Albumin (3.5-5.2) g/dL Globulin (1.3-4.6) g/dL Procalcitonin (0-0.5) ng/mL Urine Color (Yellow) Urine Appearance (CLEAR) Urine pH (5-7) Ur Specific Gravit y (1.005-1.030) Urine Protein (Negative) Urine Glucose (UA) (Normal) Urine Ketones (Negative) Urine Blood (Negative) Urine Nitrate (Negative) Urine Bilirubin (NEGATIVE) Urine Urobilinogen (Negative) mg/dL Ur Leukocyte Genesis ase (Negative) SARS-CoV-2 Ag (Rap id) (Negative) Discharge Plan Discharge Patient Disposition: Xfer Short-Term Hosp Clinical Impression: Shortness of breath with exposure to COVID-19 virus, Immunosuppression Referrals: Cornel Hu DO [Primary Care Provider] - Discharge Date/Time: 03/19/20 22:36 Sign Out Sign Out Data: Patient Sign Out occurred on 03/19/20 at 18:25. Patient's care was discussed, and care was transferred from to [place] Rogel Leeanne. Coding Level of Care Code ED Hose Stripper for Chg Fwd Exam Comprehensive
[2020-03-19] MEDS: sodium chloride 0.9% 1,000 ML 999 ML IV (14:43)
[2020-03-19 14:59] LABS: Alanine Aminotransferase 17 U/L (0-33); Alkaline Phosphatase 86 IU/L (35-105); Anion Gap 13.5 (5-19); Aspartate Amino Transferase 44 U/L (0-32); Blood Urea Nitrogen 11 mg/dL (8-23); Carbon Dioxide 23 mmol/L (22-29); Chloride 106 mmol/L (98-107); Globulin 2.3 g/dL (1.3-4.6); Glomerular Filtration Rate 82.7 mL/min (90-130); Glucose 89 mg/dL (65-115); Osmolality Calculated 282 mOsm/kg (285-295); Potassium 4.5 mmol/L (3.5-5.1); Sodium 138 mmol/L (136-145); Total Bilirubin 0.2 mg/dL (0.15-1.2); Total Protein 6.3 g/dL (6.6-8.7)
[2020-03-19 15:00] LABS: Lactic Sepsis W/Reflex 1.5 mmol/L (0.5-2.2)
[2020-03-19 15:19] LABS: Add Urine Microscopic? NO
[2020-03-19 15:22] LABS: Bilirubin Urine Neg (NEGATIVE); Blood Urine Neg (Negative); Glucose Urine UA Norm (Normal); Ketones Urine Negative (Negative); Leukocyte Esterase Urine Negative (Negative); Nitrate Urine Negative (Negative); Protein Urine Neg (Negative); Urine Appearance Clear (CLEAR); Urine Color Yellow (Yellow); Urobilinogen Urine Norm (Negative); pH Urine 7 (5-7)
[2020-03-19 15:25] LABS: Troponin(5th) Baseline 11 ng/L (0-10)
[2020-03-19 15:29] LABS: ABG PCO2 39.5 mmHg (35-45); ABG PH Result 7.36 (7.35-7.45); Alveolar-Arterial Oxygen Gradi 12.9 mmHg (5-10); Arterial Blood Gas Hematocrit 31.2 % (37-47); Base Excess ABG -2.7 mmol/L (-2.0-2.0); Blood Gas Allen Test Pos; Blood Gas Operator Identificat ED; Blood Gas Sample Site Radial, left; Blood Gas Sample Type Arterial; Carboxyhemoglobin 0.3 %THgb (0.4-20.1); HCO3 ABG 22.5 mmol/L (22-26); HGB O2 Sat 93.2 % (95-100); Ionized Calcium Level - ABG 1.1 mmol/L (1.1-1.4); Methemoglobin 1.5 % (0.4-1.5); Oxygen Device NC; Oxygen Saturation ABG 94.8; Potassium Level - ABG 3.9 mmol/L (3.5-5.0); Total Hemoglobin 10.2 g/dL (12-16)
--- NOTE | 2020-03-19 16:14 | ECG_ITS ---
[facility] Test Date: 2020-03-19 Pat Name: Whitney Dial Department: Room: Gender: Female Offc Spec: : 1950 Requested By: Chidi Howell Order Number: [id number] [facility] MD: Adenike Ruano M.D. Measurements Intervals [place] Rate: 78 P: 45 IN: 178 QRS: 31 QRSD: 80 T: 30 QT: 356 QTc: 408 Interpretive Statements SINUS RHYTHM Compared to ECG 03/19/2020 14:39:17 No significant changes Electronically Signed On 03-19-2020 20:37:35 CDT by Adenike Ruano M.D. [email or web address] [id number]
--- NOTE | 2020-03-19 16:15 | PC.NURSE ---
This nurse performed COVID nasopharyngeal swab at this time. Swab sent to lab.
[2020-03-19 16:36] LABS: Troponin 5 2HR 10.58 ng/L (0-10)
[2020-03-19 17:00] LABS: SARS Covid-2 Antigen Positive (Negative)
[2020-03-19 17:02] LABS: Troponin 5 2HR Delta -0.42 ABS# (0-10)
[2020-03-19] MEDS: dexamethasone 4 mg/mL INJ 8 MG IVP (17:55)
[2020-03-19 18:12] LABS: Procalcitonin 0.04 ng/mL (0-0.5)
[2020-03-19] MEDS: levofloxacin-dextrose 5 % 750 MG/150 ML PREMIX 100 MG IV (18:23)
[2020-03-19 18:24] LABS: C Reactive Protein 0.3 mg/L (0.0-4.9); Lactate Dehydrogenase 316 U/L (135-214)
[2020-03-19 18:36] LABS: Fibrinogen 292 mg/dL (174-498)
--- NOTE | 2020-03-19 18:43 | PC.NURSE ---
Daughter called the facility and was very upset and states her mother will not be going to [facility]. This RN educated the daughter that the patient has been educated that [facility] is the accepting facility at this time and patient agreed to go to [facility].
[2020-03-19 18:46] LABS: D Dimer 3.63 ug/mIFEU (0-0.59)
[2020-03-19 20:46] LABS: Troponin 5 6HR 10.78 ng/L (0-10)
[2020-03-19 20:52] LABS: Troponin 5 6HR Delta -0.22 ng/L (0-12)
== END 2020-03-19 22:36 | disposition short-term general hospital (02) ==
PROVIDERS: Family Medicine; Emergency Provider Emergency Medicine; PCP Internal Medicine
DX: U07.1 COVID-19 (principal); D89.9 Disorder involving the immune mechanism, unspecified; J43.9 Emphysema, unspecified; Z87.891 Personal history of nicotine dependence
CPT/HCPCS: 12345; 36415; 36600; 71045; 80051; 80053; 81003; 82810; 83605; 83615; 83986; 84145; 84484; 85025; 85378; 85384; 86140; 87040; 87426; 93005; 96365; 96375; 99284; J1100; J1956; J7030

== ENCOUNTER 2020-04-25 12:58 | Outpatient (CLI) | payer MEDICARE, OTHER, SELFPAY ==
[2020-04-25 13:10] VITALS: BP 104/63; PULSE 94; RESP 18; TEMP 36.6; O2SAT 92
[2020-04-25 14:00] VITALS: BMI 29.0
[2020-04-25 15:21] VITALS: BP 104/63; PULSE 81; RESP 18; TEMP 36.6; O2SAT 91
== END 2020-04-25 12:59 | disposition home or self-care (01) ==
LOC: RHEOACUTE 12:59
PROVIDERS: PCP Internal Medicine; Visit Provider Internal Medicine Rheumatology
DX: M05.79 Rheumatoid arthritis with rheumatoid factor 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 systems involvement (principal)
CPT/HCPCS: 96365; J3262

== ENCOUNTER → 2020-05-02 10:39 | Outpatient (BNVA) | payer MEDICARE, OTHER, SELFPAY | PROVIDERS: PCP Internal Medicine; Visit Provider Internal Medicine Rheumatology | DX: M05.79 Rheumatoid arthritis with rheumatoid factor 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 systems involvement (principal); Z79.899 Other long term (current) drug therapy; M70.62 Trochanteric bursitis, left hip; M81.0 Age-related osteoporosis without current pathological fracture; J44.9 Chronic obstructive pulmonary disease, unspecified; R53.83 Other fatigue; Z87.891 Personal history of nicotine dependence; Y93.9 Activity, unspecified | CPT/HCPCS: 20610; 36415; 80076; 82310; 85025; 99214; J1030 ==

== ENCOUNTER 2020-05-23 13:41 | Outpatient (CLI) | payer MEDICARE, OTHER, SELFPAY ==
--- NOTE | 2020-05-23 13:46 | PC.NURSE ---
A&O x3. Refusing pre-medication.
[2020-05-23 13:48] VITALS: BP 126/74; PULSE 107; RESP 18; TEMP 36.2; O2SAT 90
[2020-05-23 13:49] VITALS: BMI 30.2
[2020-05-23 15:37] VITALS: BP 106/77; PULSE 82; RESP 16; O2SAT 90
== END 2020-05-23 13:42 | disposition home or self-care (01) ==
LOC: RHEOACUTE 13:43
PROVIDERS: PCP Internal Medicine; Visit Provider Internal Medicine Rheumatology
DX: M05.79 Rheumatoid arthritis with rheumatoid factor 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 systems involvement (principal)
CPT/HCPCS: 96365; J3262

== ENCOUNTER 2020-06-20 10:59 | Outpatient (CLI) | payer MEDICARE, OTHER, SELFPAY ==
[2020-06-20 11:00] VITALS: BP 115/67; PULSE 87; RESP 16; TEMP 36.1; O2SAT 92
[2020-06-20 11:48] VITALS: BMI 29.9
--- NOTE | 2020-06-20 11:49 | PC.NURSE ---
[facility] has been experiencing N/V/Diarrhea for several months. [facility] PCP has done several tests that were negative. Pt referred for endoscopy. Awaiting appt. Contacted PCP for labs to be faxed.
[2020-06-20 13:07] VITALS: BP 113/62; PULSE 82; RESP 20; O2SAT 90
== END 2020-06-20 11:00 | disposition home or self-care (01) ==
LOC: RHEOACUTE 11:01
PROVIDERS: PCP Internal Medicine; Visit Provider Internal Medicine Rheumatology
DX: M05.79 Rheumatoid arthritis with rheumatoid factor 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 systems involvement (principal)
CPT/HCPCS: 96365; J3262

== ENCOUNTER 2020-07-03 12:38 | Outpatient (CLI) | payer MEDICARE, OTHER, SELFPAY | END 2020-07-03 12:39 | disposition home or self-care (01) | LOC: LAB 12:39 | PROVIDERS: PCP Internal Medicine; Visit Provider Surgery | DX: R19.7 Diarrhea, unspecified (principal) | CPT/HCPCS: 83630; 87177; 87209; 87493; 87506 ==

== ENCOUNTER 2020-07-18 14:10 | Outpatient (CLI) | payer MEDICARE, OTHER, SELFPAY ==
[2020-07-18 14:15] VITALS: BP 114/62; PULSE 99; RESP 18; TEMP 36.3; O2SAT 90
[2020-07-18 14:25] VITALS: BMI 31.2
[2020-07-18 16:26] VITALS: BP 113/56; PULSE 88; RESP 16; O2SAT 90
== END 2020-07-18 14:11 | disposition home or self-care (01) ==
LOC: RHEOACUTE 14:11
PROVIDERS: PCP Internal Medicine; Visit Provider Internal Medicine Rheumatology
DX: M05.79 Rheumatoid arthritis with rheumatoid factor 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 systems involvement (principal)
CPT/HCPCS: 80076; 82565; 85025; 85651; 86140; 96365; J3262

== ENCOUNTER → 2020-08-01 11:16 | Outpatient (BNVA) | payer MEDICARE, OTHER, SELFPAY | PROVIDERS: PCP Internal Medicine; Visit Provider Internal Medicine Rheumatology | DX: M05.79 Rheumatoid arthritis with rheumatoid factor 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 systems involvement (principal); M81.0 Age-related osteoporosis without current pathological fracture; Z79.899 Other long term (current) drug therapy; R53.83 Other fatigue; M70.62 Trochanteric bursitis, left hip; Y93.9 Activity, unspecified; Z87.891 Personal history of nicotine dependence; J44.9 Chronic obstructive pulmonary disease, unspecified; M25.552 Pain in left hip | CPT/HCPCS: 36415; 82306; 82728; 83540; 83550; 84439; 84443; 99214 ==

== ENCOUNTER → 2020-08-15 16:34 | Outpatient (BNVA) | payer MEDICARE, OTHER, SELFPAY | PROVIDERS: PCP Internal Medicine; Visit Provider Surgery | DX: Z20.828 Contact with and (suspected) exposure to other viral communicable diseases (principal) | CPT/HCPCS: 87635 ==

== ENCOUNTER 2020-08-20 06:51 | Day surgery (SDC) | payer MEDICARE, OTHER, SELFPAY ==
[2020-08-15 10:15] VITALS: BMI 29.2
[2020-08-20 07:21] VITALS: BP 135/82; PULSE 90; RESP 22; TEMP 36.3; O2SAT 90
--- NOTE | 2020-08-20 07:33 | P.HP_ITS ---
Same Day Surgery H&P Indication for Procedure/HPI DATE OF PROCEDURE: August 20, 2020 CHIEF COMPLAINT/INDICATIONFOR SURGICAL PROCEDURE: nausea and vomiting PREOP DIAGNOSIS: nausea and vomiting PLANNED PROCEDRUE: Operation Date: 08/20/20 07:30 Proposed Procedures p EGD 85228 R11.10(Not Applicable) - Willi Banuelos MD Medications/Allergies* Home Medications Medication Instructions Recorded Confirmed Type ascorbic acid 125 mg-collagen, 1 cap PO DAILY cap 08/19/19 08/20/20 History hydrolyzed 740 mg capsule cyclobenzaprine 10 mg tablet 10 mg PO TID PRN 08/19/19 08/20/20 History duloxetine 30 mg capsule,delayed 60 mg PO DAILY cap 08/19/19 08/20/20 History release folic acid 1 mg tablet 1 mg PO DAILY tab 08/19/19 08/20/20 History multivitamin 1 cap PO QAM 08/19/19 08/20/20 History sertraline 100 mg tablet 100 mg PO DAILY tab 08/19/19 08/20/20 History levetiracetam 500 mg tablet 500 mg PO BID 12/01/19 08/20/20 History albuterol sulfate 2.5 mg INHALATION Q4H PRN 12/29/19 08/20/20 History ondansetron 4 mg disintegrating 4 - 8 mg PO Q6H PRN 12/29/19 08/20/20 History tablet albuterol sulfate 2 puff INHALATION Q4H PRN 03/17/20 08/20/20 History diclofenac sodium 2 gm TOPICAL QID PRN 03/17/20 08/20/20 History ibuprofen 400 mg PO PRN 03/17/20 08/20/20 History tramadol 50 mg PO BID PRN 03/17/20 08/20/20 History turmeric 3 tab PO DAILY 03/17/20 08/20/20 History loperamide [Imodium A-D] See Rx Instructions .ROUTE .COMPLEX 03/19/20 08/20/20 History diphenoxylate-atropine [Lomotil] 1 tab PO DAILY 08/15/20 08/20/20 History Allergies/Adverse Reactions Allergy/AdvReac Type Severity Reaction Status Date / Time Penicillins Allergy Severe anaphylaxis Verified 08/20/20 07:19 amoxicillin Allergy ALGY-Anaphy Verified 08/20/20 07:19 laxis egg yolk Allergy SWELLING Verified 08/20/20 07:19 Influenza Virus Vaccines Allergy SWELLING Verified 08/20/20 07:19 morphine Allergy unknown Verified 08/20/20 07:19 Pertinent History/Comorbid Conditions* Medical History (Updated 08/01/20 @ 12:02 by Temo Tay MD) Cerebral aneurysm COPD (chronic obstructive pulmonary disease) Fatigue Rheumatoid arthritis with rheumatoid factor 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 systems involvement Surgical History (Updated 07/02/20 @ 11:42 by Willi Banuelos MD) H/O brain surgery x7 H/O tubal ligation History of colonoscopy Family History (Updated 12/01/19 @ 11:53 by Malgorzata Jacob LPN) Rheumatoid arthritis CAD (coronary artery disease) Cancer Stroke Denies family history of Diabetes Chronic kidney disease (CKD) Systemic lupus erythematosus (SLE) in adult Hypertension Social History Smoking and tobacco status: former smoker Quit status (tobacco): has quit using tobacco Year quit tobacco: 2005 - 1PPD x 50 Years Alcohol intake: never Lives independently: Yes Household members: spouse Marital status: Current occupational status: unemployed History of recent travel: No Current gender identity: Female Pertinent Exam Findings alert, oriented x 3 and regular rate & rhythm Recommendations Surgery/Procedure today Coding Level of Care Code Acute Tap And Die Maker Technician for Miri Valerio
[2020-08-20] MEDS: sodium chloride 0.9% 1,000 ML 30 ML IV (07:34)
--- NOTE | 2020-08-20 07:37 | ANES.PREANE2 ---
Pre-Anesthetic Assessment Pre-Anesthetic Assessment: Height/Weight: Height 1.57 m Weight 72.575 kg Temp Pulse Resp BP Pulse Ox 97.4 F L 90 22 H 135/82 90 08/20/20 07:21 08/20/20 07:21 08/20/20 07:21 08/20/20 07:21 08/20/20 07:21 Preop Diagnosis: nausea and vomiting Proposed Procedure: Operation Date: 08/20/20 07:30 Proposed Procedures p EGD 16565 R11.10(Not Applicable) - Willi Banuelos MD Familial anesthetic complications: None Was Beta Faith taken within 24 hours: N/A Last intake: Intake Last Liquid Date 08/19/19 Last Liquid Time 20:00 Last Solid Date 08/19/19 Last Solid Time 20:00 Social: Social History: No alcohol and No tobacco Comment: former smoker Exam: Pre-Anes Outpt Exam: alert, oriented x 3 and regular rate & rhythm Additional Exam Findings (including area of procedure): B/L wheeze Airway: Cervical ROM: WNL MP: 3 Dentition: Other (implants) Pulmonary: Pulmonary: COPD Musc/skel: Musc/skel: RA (Recent steroid use) Neuropsych: Neuropsych: CVA (hemorrhagic 2019) Comments: brain aneurysm s/p coil with CVA and several brain surgeries Anesthetic Plan: ASA status: 3 Anesthesia: MAC Risk of > 500 ml blood loss (7ml/kg in children): No Other Pertinent Information: Patient states egg causes RA flares, denies hives/anaphylaxis Meds/Allergies Current Medications: Current Medications Generic Name Dose Route Start Last Admin Trade Name Freq PRN Reason Stop Dose Admin Sodium Chloride 1,000 mls @ 30 ml s/hr 08/20/20 07:15 08/20/20 07:34 Sodium Chloride 0.9% IV 08/21/20 07:14 30 mls/hr .Q24H SUJIT Administration PFSH Anesthesia PFSH: Medical History (Updated 08/15/20 @ 10:27 by Kamran Quiros RN) Cerebral aneurysm COPD (chronic obstructive pulmonary disease) Fatigue Rheumatoid arthritis with rheumatoid factor 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 systems involvement Surgical History H/O brain surgery x7 H/O tubal ligation History of colonoscopy Family History Other CAD (coronary artery disease) Cancer Rheumatoid arthritis Stroke Denies family history of Diabetes Chronic kidney disease (CKD) Systemic lupus erythematosus (SLE) in adult Hypertension Social History Smoking and tobacco status: former smoker Quit status (tobacco): has quit using tobacco Year quit tobacco: 2005 - 1PPD x 50 Years Alcohol intake: never Lives independently: Yes Household members: spouse Marital status: Current occupational status: unemployed History of recent travel: No Current gender identity: Female Data Anesthesia Cardiac Studies: No Data to Display
[2020-08-20 08:08] VITALS: BP 109/60; PULSE 80; RESP 16; TEMP 36.5; O2SAT 93
[2020-08-20 08:24] VITALS: BP 113/78; PULSE 74; RESP 18; TEMP 36.4; O2SAT 94
--- NOTE | 2020-08-20 18:36 | ANE.PACU2 ---
Inpatient post-anesthesia follow up: Airway intact: Yes Vital signs: Temperature 97.6 F Pulse Rate 74 Respiratory Rate 18 Blood Pressure 113/78 Pulse Oximetry 94 Oxygen Delivery Me thod Room Air Oxygen Flow Rate Fraction of Inspir ed Oxygen Hydration adequate: Yes Nausea and vomiting: No Pain level: 1 Mental status: Baseline
== END 2020-08-20 09:00 | disposition home or self-care (01) ==
PROVIDERS: PCP Internal Medicine; Visit Provider Surgery
PROC: 0DJ08ZZ Inspection of Upper Intestinal Tract, Via Natural or Artificial Opening Endoscopic (ICD-10-PCS; CPT 43235; principal; 2020-08-20 07:30)
DX: R11.2 Nausea with vomiting, unspecified (principal); K44.9 Diaphragmatic hernia without obstruction or gangrene; K29.70 Gastritis, unspecified, without bleeding; J44.9 Chronic obstructive pulmonary disease, unspecified; M06.9 Rheumatoid arthritis, unspecified; Z82.49 Family history of ischemic heart disease and other diseases of the circulatory system; Z83.3 Family history of diabetes mellitus; Z82.3 Family history of stroke; Z87.891 Personal history of nicotine dependence; Z86.73 Personal history of transient ischemic attack (TIA), and cerebral infarction without residual deficits
CPT/HCPCS: 12345; 43239; 88305; J7030

== ENCOUNTER 2020-08-21 12:53 | Outpatient (CLI) | payer MEDICARE, OTHER, SELFPAY ==
[2020-08-21 13:05] VITALS: BP 126/77; PULSE 104; RESP 16; TEMP 36.2; O2SAT 92
[2020-08-21 13:06] VITALS: BMI 29.9
--- NOTE | 2020-08-21 13:16 | PC.NURSE ---
States was prescribed antibiotics after EGD but is not going to take them. States she does not have an infection.
--- NOTE | 2020-08-21 15:52 | PC.NURSE ---
1315 Pt refuses pre-medications.
[2020-08-21 15:53] VITALS: BP 126/77; PULSE 104; RESP 16; O2SAT 90
--- NOTE | 2020-08-21 15:53 | PC.NURSE ---
follow up appt made for Dr. Tay. Next infusion appt made.
== END 2020-08-21 12:54 | disposition home or self-care (01) ==
LOC: RHEOACUTE 12:55
PROVIDERS: PCP Internal Medicine; Visit Provider Internal Medicine Rheumatology
DX: M05.79 Rheumatoid arthritis with rheumatoid factor 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 systems involvement (principal)
CPT/HCPCS: 96365; J3262

== ENCOUNTER 2020-10-22 12:57 | Outpatient (CLI) | payer MEDICARE, OTHER, SELFPAY ==
[2020-10-22 13:30] VITALS: BP 120/76; PULSE 105; RESP 20; TEMP 36.9; O2SAT 97
[2020-10-22 14:41] VITALS: BP 111/67; PULSE 102; RESP 20; TEMP 36.9; O2SAT 95
== END 2020-10-22 12:58 | disposition home or self-care (01) ==
PROVIDERS: PCP Internal Medicine; Visit Provider Internal Medicine Rheumatology
DX: M05.79 Rheumatoid arthritis with rheumatoid factor 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 systems involvement (principal)
CPT/HCPCS: 96365; J3262

== ENCOUNTER → 2020-12-05 11:10 | Outpatient (BNVA) | payer MEDICARE, OTHER, SELFPAY | PROVIDERS: PCP Internal Medicine; Visit Provider Internal Medicine Rheumatology | DX: M05.79 Rheumatoid arthritis with rheumatoid factor 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 systems involvement (principal); Z79.899 Other long term (current) drug therapy; M81.0 Age-related osteoporosis without current pathological fracture; M70.62 Trochanteric bursitis, left hip; Y93.9 Activity, unspecified; R53.83 Other fatigue; J43.9 Emphysema, unspecified; Z86.16 Personal history of COVID-19; Z87.891 Personal history of nicotine dependence; R06.2 Wheezing | CPT/HCPCS: 99214 ==

== ENCOUNTER 2020-12-05 13:21 | Outpatient (CLI) | payer MEDICARE, OTHER, SELFPAY ==
--- NOTE | 2020-12-05 13:32 | XR_ITS ---
WS: [id number] Chest 2 views, 12/05/2020 Clinical Data: M05.79 - Rheumatoid arthritis with rheumatoid factor 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 systems involvement Comparison: Portable chest, 03/19/2020. Findings: No nodules, masses or effusions are seen. The heart is normal. The pulmonary vascularity is not increased. No pneumonia or pneumothorax is seen. Bibasilar interstitial change is seen. There is pleural thickening of the left apex which was not previously present. The aortic arch and descending aorta show tortuosity. There is a ventriculoperitoneal shunt tube over the right side of the mediast inum. XR/XR chest 2V* [id number] Impression: 1. Development of left apical pleural thickening and a CT chest may be helpful. 2. Atherosclerosis. 3. Minimal bibasilar interstitial change.
== END 2020-12-05 13:22 | disposition home or self-care (01) ==
PROVIDERS: PCP Internal Medicine; Visit Provider Internal Medicine Rheumatology
DX: M05.79 Rheumatoid arthritis with rheumatoid factor 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 systems involvement (principal); R06.2 Wheezing; Z79.899 Other long term (current) drug therapy
CPT/HCPCS: 71046

== ENCOUNTER 2020-12-18 13:05 | Outpatient (CLI) | payer MEDICARE, OTHER, SELFPAY ==
--- NOTE | 2020-12-18 13:00 | CT_ITS ---
WS: [id number] CT CHEST CT-HIGH RESOLUTION, NONCONTRAST. HISTORY: Interstitial lung disease. Technique: High-resolution chest CT is performed in inspiration, expiration, supine and prone positio amber. All CT scans at [facility] use at least one of these dose optimization techniques: automa manuel exposure control; mA and/or kV adjustment per patient size (includes targeted exams where dose is matched to clinical indication); or iterative reconstruction. DLP: 1093.39 mGycm COMPARISON: 10/03/2018 Findings: Chronic emphysematous changes bilaterally. New since the prior CT of 10/03/2018 is lobulate d LEFT pleural soft tissue. Lobulated soft tissue with pleural based with low Hounsfield units. There is extension of the lobulated soft tissue thickening along the major fissure. Stable 5 mm nodule at the RIGHT apex. Posterior mixed cystic and solid cavitary type lesions are noted in the posterior low er lung diego bilaterally. These cystic areas posteriorly may be related to bronchiectasis or focal honeycombing. These have been previously described and may be from prior episodes of infection. Groun dglass and mild tree-in-bud airspace disease RIGHT lower lobe. The areas of consolidation and pleural lobulation do not change significantly with expiration or prone positioning. No mosaic attenuation. No calcified pleural plaques. There are small mediastinal and hilar lymph nodes. Small hiatal hernia. Atherosclerosis of aorta. OUTREACH DIRECTOR shunt catheter. CT/CT chest wo con [id number] Impression: 1. New lobulated soft tissue nodularity throughout the LEFT thorax. No calcifi ed plaques. This appears to be loculated pleural fluid with some adjacent honey combing and bronchiectasis throughout the LEFT lung. New since 10/03/2018. May b e from infection or neoplasm. Cannot exclude empyema or enhancement without IV contrast. 2. Mild RIGHT lower lobe tree-in-bud airspace disease which is often seen with endobronchial infection.
== END 2020-12-18 13:06 | disposition home or self-care (01) ==
PROVIDERS: PCP Internal Medicine; Visit Provider Internal Medicine Rheumatology
DX: J92.9 Pleural plaque without asbestos (principal)
CPT/HCPCS: 71250

== ENCOUNTER 2021-01-08 11:30 | Outpatient (CLI) | payer MEDICARE, OTHER, SELFPAY ==
[2021-01-08 11:48] VITALS: BP 124/75; PULSE 76; RESP 22; TEMP 36.4; O2SAT 98
[2021-01-08 13:04] LABS: C Reactive Protein 64.9 mg/L (0.0-4.9)
[2021-01-08 13:37] VITALS: BP 106/54; PULSE 94; RESP 18; TEMP 37; O2SAT 99
== END 2021-01-08 11:31 | disposition home or self-care (01) ==
LOC: ONCMED 11:33
PROVIDERS: PCP Internal Medicine; Visit Provider Internal Medicine Rheumatology
DX: M05.79 Rheumatoid arthritis with rheumatoid factor 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 systems involvement (principal)
CPT/HCPCS: 86140; 96365; J3262

== ENCOUNTER 2021-01-31 03:05 | Inpatient (IN) | payer MEDICARE, OTHER, SELFPAY ==
[2021-01-31] VITALS (24 sets, daily range): BP systolic 102–129; BP diastolic 53–73; PULSE 90–116; RESP 17–28; TEMP 36.2–36.7; O2SAT 88–95; BMI 27.4
--- NOTE | 2021-01-31 03:09 | XRR_ITS ---
PROCEDURE INFORMATION: Exam: XR Chest Exam date and time: 01/31/2021 3:09 AM Age: 70 years old Clinical indication: Shortness of breath; Patient HX: SOB. History of copd. TECHNIQUE: Imaging protocol: XR of the chest. Views: 1 view. COMPARISON: CR XR chest 2V* [id number] 01/23/2021 2:11 PM FINDINGS: Tubes, catheters and devices: Stable tubing along the right side of the chest. Lungs: There are increased pulmonary opacities bilaterally with increase in interstitial markings. Pleural spaces: Stable nodularity of the pleura in the left hemithorax. Heart/Mediastinum: Unremarkable. No cardiomegaly. Bones/joints: Unremarkable. XR/XR chest 1V portable [id number] IMPRESSION: Pulmonary edema versus COVID-19. Stable nodularity of the pleura in the left hemithorax.
--- NOTE | 2021-01-31 03:10 | ED_ITS ---
HPI - SOB/Dyspnea General: Chief Complaint: Shortness of Breath/Dyspnea Stated Complaint: sob Time Seen by Provider: 01/31/21 03:06 Source: patient and EMS Mode of arrival: EMS Limitations: no limitations History of Present Illness: HPI Narrative: 70-year-old female who has a history of COPD and is on 2 L of oxygen at home baseline. She states she has had increased shortness of breath over the week with it being much worse today. She just finished antibiotics and steroids over the last 5 days. She states that tonight she has had increased wheezing and dyspnea and is currently 90% on 4 L at this time. She denies any chest pain denies any fevers. She has had a productive cough. MD elicited complaint: shortness of breath Associated symptoms: Deny abdominal pain, chest pain, fever(s), nausea or vomiting Review of Systems Const: Denies: fever(s), chills, body aches or change in appetite Eyes: Denies: blurry vision or eye discomfort ENMT: Denies: throat pain or dental pain Card: Denies: chest pain Resp: Reports: dyspnea and wheezing GI: Denies: abdominal pain, nausea, vomiting or diarrhea : Denies: dysuria Musc: Denies: neck pain or back pain Skin/Breast: Denies: rash Neuro: Denies: headache(s) Psych: Denies: depression Rick/Lymph: Denies: easy bruising All/Imm: Denies: urticaria PFSH ED PFSH: Medical History Cerebral aneurysm COPD (chronic obstructive pulmonary disease) exacerbation Fatigue Rheumatoid arthritis with rheumatoid factor 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 systems involvement Surgical History H/O brain surgery x7 H/O esophagogastroduodenoscopy (08/20/20) H/O tubal ligation History of colonoscopy Family History Other CAD (coronary artery disease) Cancer Rheumatoid arthritis Stroke Denies family history of Diabetes Chronic kidney disease (CKD) Systemic lupus erythematosus (SLE) in adult Hypertension Social History Smoking and tobacco status: former smoker Quit status (tobacco): has quit using tobacco Year quit tobacco: 2005 - 1PPD x 50 Years Second hand smoke exposure: No Smoking risk assessment/counseling performed?: No Alcohol intake: never Lives independently: Yes Household members: spouse Marital status: Current occupational status: unemployed Pets and animals: Yes History of recent travel: No Current gender identity: Female Physical Exam Const: COMMON NORMALS: patient oriented x3 and healthy appearing GENERAL APPEARANCE: in distress HENMT: COMMON NORMALS: normocephalic and atraumatic HEAD & SCALP: normocephalic and atraumatic Eye: COMMON NORMALS: Equal, round and reactive pupils present and EOMs intact bilaterally PUPIL: Yes Equal, round and reactive pupils present Neck/C-Spine: COMMON NORMALS: full ROM and supple Chest: COMMONS NORMALS: normal inspection of the chest and normal palpation of entire chest wall Resp: EFFORT & INSPECTION: Yes tachypneic and Yes respiratory distress AUSCULTATION: wheezes Cardio: COMMON NORMALS: regular rate, regular rhythm and No murmurs present (Cardio) RATE: regular rate RHYTHM: regular rhythm GI: COMMON NORMALS: Normal to inspection, nondistended, normoactive bowel sounds present, Soft to palpation, non-tender and no masses PALPATION: Yes Soft to palpation Extremity: COMMON NORMALS: normal to inspection and full ROM Neuro: COMMON NORMALS: patient oriented x3, moves all extremities and no focal motor deficits Psych: COMMON NORMALS: mental status grossly normal, Normal thought process present and cooperative THOUGHT PROCESS: Normal thought process present Skin: COMMON NORMALS: no rashes or lesions noted and no wounds GENERAL SKIN EXAM: no rashes or lesions noted Course Vital Signs: Vital signs: Vital Signs Temperature 97.6 F 01/31/21 03:09 Pulse Rate 111 H 01/31/21 03:47 Respiratory Rate 27 H 01/31/21 03:45 Blood Pressure 125/65 01/31/21 03:45 Pulse Oximetry 91 01/31/21 03:45 MDM - SOB/Dyspnea MDM Narrative: Medical decision making narrative: Patient presents here with increased shortness of breath history of COPD. X-ray shows concerns for pneumonia. Covid here was negative. Patient is improving on breathing treatments but still requiring increased oxygen compared to baseline. I spoke to the hospitalist and will admit. Lab Data: Labs: Lab Results 01/31/21 01/31/21 01/31/21 Range/Units 03:20 03:40 03:40 WBC 9.8 (4.0-10.0) 10^3/ uL RBC 3.54 L (4.1-5.3) 10^6/u L Hgb 10.8 L (11.5-15.3) g/dL Hct 35.9 L (37.0-47.0) % MCV 101.4 H (81-99) fL MCH 30.5 (28.0-34.0) pg MCHC 30.1 (30.0-36.0) g/dL RDW 17.3 H (12.1-15.1) % Plt Count 199 (130-400) 10^3/c mm MPV 9.8 (7.4-10.4) fL Neut % (Auto) 79.8 % Lymph % (Auto) 10.3 % Mccormick % (Auto) 4.1 % Eos % (Auto) 4.3 % Baso % (Auto) 0.9 % Neut # (Auto) 7.81 H (1.8-7.7) 10^3/u L Lymph # (Auto) 1.0 (0.8-4.8) 10^3/u L Mccormick # (Auto) 0.4 (0.2-0.9) 10^3/u L Eos # (Auto) 0.4 (0.0-0.8) 10^3/u L Baso # (Auto) 0.1 (0.0-0.1) 10^3/u L Nucleated RBC % (a uto) 0 % Nucleated RBCs # 0.0 /100WBC Specimen Type Sample Site ABG pH (7.35-7.45) ABG pCO2 (35-45) mmHg ABG pO2 (80.0-100.0) mmH g ABG HCO3 (22-26) mmol/L ABG Base Excess (-2.0-2.0) mmol/ L Reji Test Hematocrit (37-47) % Hgb O2 Saturation (95-100) % Carboxyhemoglobin (0.4-20.1) %THgb Methemoglobin (0.4-1.5) % Total Hemoglobin (12-16) g/dL O2 Delivery Device O2 Liters/Min % Septic Pump Truck Driver ID Sodium 140 (136-145) mmol/L Potassium 4.0 (3.5-5.1) mmol/L Chloride 101 (98-107) mmol/L Carbon Dioxide 30 H (22-29) mmol/L Anion Gap 13.0 (5-19) BUN 9 (8-23) mg/dL Creatinine 0.5 (0.5-0.9) mg/dL GFR Calculation Not Reportable Glucose 107 (65-115) mg/dL Calculated Osmolal ity 289 (285-295) mOsm/k g Calcium 9.4 (8.5-10.5) mg/dL Total Bilirubin 0.3 (0.15-1.2) mg/dL AST 39 H (0-32) U/L ALT 9 (0-33) U/L Alkaline Phosphata se 139 H (35-105) IU/L NT-Pro-B Natriuret Pep 264 H (0-125) pg/mL Total Protein 6.6 (6.6-8.7) g/dL Albumin 3.8 (3.5-5.2) g/dL Globulin 2.8 (1.3-4.6) g/dL SARS-CoV-2 Ag (Rap id) Negative (Negative) 01/31/21 Range/Units 03:41 WBC (4.0-10.0) 10^3/ uL RBC (4.1-5.3) 10^6/u L Hgb (11.5-15.3) g/dL Hct (37.0-47.0) % MCV (81-99) fL MCH (28.0-34.0) pg MCHC (30.0-36.0) g/dL RDW (12.1-15.1) % Plt Count (130-400) 10^3/c mm MPV (7.4-10.4) fL Neut % (Auto) % Lymph % (Auto) % Mccormick % (Auto) % Eos % (Auto) % Baso % (Auto) % Neut # (Auto) (1.8-7.7) 10^3/u L Lymph # (Auto) (0.8-4.8) 10^3/u L Mccormick # (Auto) (0.2-0.9) 10^3/u L Eos # (Auto) (0.0-0.8) 10^3/u L Baso # (Auto) (0.0-0.1) 10^3/u L Nucleated RBC % (a uto) % Nucleated RBCs # /100WBC Specimen Type Arterial Sample Site Brachial, right ABG pH 7.38 (7.35-7.45) ABG pCO2 50.8 H (35-45) mmHg ABG pO2 70.6 L (80.0-100.0) mmH g ABG HCO3 29.8 H (22-26) mmol/L ABG Base Excess 3.7 H (-2.0-2.0) mmol/ L Reji Test Pos Hematocrit 37.2 (37-47) % Hgb O2 Saturation 89.9 L (95-100) % Carboxyhemoglobin < 0.0 L (0.4-20.1) %THgb Methemoglobin 1.5 (0.4-1.5) % Total Hemoglobin 12.1 (12-16) g/dL O2 Delivery Device Nc O2 Liters/Min 5.0 % Septic Pump Truck Driver ID Francesco Sodium (136-145) mmol/L Potassium (3.5-5.1) mmol/L Chloride (98-107) mmol/L Carbon Dioxide (22-29) mmol/L Anion Gap (5-19) BUN (8-23) mg/dL Creatinine (0.5-0.9) mg/dL GFR Calculation Glucose (65-115) mg/dL Calculated Osmolal ity (285-295) mOsm/k g Calcium (8.5-10.5) mg/dL Total Bilirubin (0.15-1.2) mg/dL AST (0-32) U/L ALT (0-33) U/L Alkaline Phosphata se (35-105) IU/L NT-Pro-B Natriuret Pep (0-125) pg/mL Total Protein (6.6-8.7) g/dL Albumin (3.5-5.2) g/dL Globulin (1.3-4.6) g/dL SARS-CoV-2 Ag (Rap id) (Negative) Discharge Plan Discharge Patient Disposition: Admitted As Inpatient Admit Provider: Rajwinder Mario Clinical Impression: Pneumonia COPD (chronic obstructive pulmonary disease) Qualifiers: COPD type: unspecified COPD Qualified Code(s): J44.9 - Chronic obstructive pulmonary disease, unspecified Condition: Stable Coding Level of Care Code ED District Sales Representative for Chg Fwd Exam Comprehensive
[2021-01-31] MEDS: cefTRIAXone 1,000 MG in sodium chloride 0.9% (plus) 50 ML 100 MG IV (03:25)
[2021-01-31] MEDS: ipratropium-albuterol 3 mL Neb INHALATION ×4 (03:34→20:50)
[2021-01-31] MEDS: azithromycin 500 MG in sodium chloride 0.9% 250 ML 250 MG IV (03:44)
[2021-01-31 03:48] LABS: Basophils # 0.1 10^3/uL (0.0-0.1); Basophils % 0.9 %; Eosinophils # 0.4 10^3/uL (0.0-0.8); Eosinophils % 4.3 %; Hematocrit 35.9 % (37.0-47.0); Hemoglobin 10.8 g/dL (11.5-15.3); Lymphocytes % 10.3 %; Mean Corpuscular HGB Conc 30.1 g/dL (30.0-36.0); Mean Corpuscular Hemoglobin 30.5 pg (28.0-34.0); Mean Corpuscular Volume 101.4 fL (81-99); Mean Platelet Volume 9.8 fL (7.4-10.4); Monocytes # 0.4 10^3/uL (0.2-0.9); Monocytes % 4.1 %; Neutrophils # 7.81 10^3/uL (1.8-7.7); Neutrophils % 79.8 %; Nucleated Red Blood Cells % 0 %; Platelet Count 199 10^3/cmm (130-400); Red Blood Count 3.54 10^6/uL (4.1-5.3); Red Cell Distribution Width 17.3 % (12.1-15.1); White Blood Count 9.8 10^3/uL (4.0-10.0)
[2021-01-31 03:55] LABS: ABG PCO2 50.8 mmHg (35-45); ABG PH Result 7.38 (7.35-7.45); Arterial Blood Gas Hematocrit 37.2 % (37-47); Base Excess ABG 3.7 mmol/L (-2.0-2.0); Blood Gas Allen Test Pos; Blood Gas Operator Identificat JB; Blood Gas Sample Site Brachial, right; Blood Gas Sample Type Arterial; Carboxyhemoglobin < 0.0 %THgb (0.4-20.1); HCO3 ABG 29.8 mmol/L (22-26); HGB O2 Sat 89.9 % (95-100); Methemoglobin 1.5 % (0.4-1.5); Oxygen Device NC; PO2 ABG 70.6 mmHg (80.0-100.0); Total Hemoglobin 12.1 g/dL (12-16)
[2021-01-31 04:11] LABS: SARS Covid-2 Antigen Negative (Negative)
[2021-01-31 04:13] LABS: Alanine Aminotransferase 9 U/L (0-33); Albumin Level 3.8 g/dL (3.5-5.2); Alkaline Phosphatase 139 IU/L (35-105); Aspartate Amino Transferase 39 U/L (0-32); Blood Urea Nitrogen 9 mg/dL (8-23); Calcium 9.4 mg/dL (8.5-10.5); Carbon Dioxide 30 mmol/L (22-29); Chloride 101 mmol/L (98-107); Globulin 2.8 g/dL (1.3-4.6); Glucose 107 mg/dL (65-115); NT Pro B Type Natriuretic Pept 264 pg/mL (0-125); Osmolality Calculated 289 mOsm/kg (285-295); Sodium 140 mmol/L (136-145); Total Bilirubin 0.3 mg/dL (0.15-1.2); Total Protein 6.6 g/dL (6.6-8.7)
--- NOTE | 2021-01-31 06:22 | PM.HP ---
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 this is been ongoing for the past few weeks. She follows with pulmonary clinic where she was seen on 01/24/2021. Prior to this she was treated with 7 day course of Levaquin and 5 day course of prednisone. She stated that while on prednisone she was doing much better. Denies any fevers or chills. Upon arrival to emergency room her laboratory workup showed a WBC of 9.8, hemoglobin 10.8, hematocrit 35.9 and a platelet count of 199. Sodium 140, potassium 4.0, chloride 101, bicarb 30, BUN 9 and creatinine of 0.5. ProBNP of 264. Arterial blood gases showed a pH of 7.38, pCO2 of 50.8, PO2 of 70.6 and a bicarb of 29.8. Chest x-ray on arrival showed pulmonary edema versus COVID-19 due to increased pulmonary opacities bilaterally with increased interstitial markings. In emergency room she was requiring 5 L of O2 via nasal cannula. He was given Solu-Medrol duo-neb treatment and antibiotics including ceftriaxone and azithromycin. Review of Systems General: Reports: 10 or more systems reviewed and unremarkable except in HPI and below Medications/Allergies Home Medications Medication Instructions Recorded Confirmed Last Taken Type ascorbic acid 125 mg-collagen, 1 cap PO DAILY cap 08/19/19 01/24/21 08/19/20 History hydrolyzed 740 mg capsule cyclobenzaprine 10 mg tablet 10 mg PO TID PRN 08/19/19 01/24/21 08/19/20 History duloxetine 30 mg capsule,delayed 60 mg PO DAILY cap 08/19/19 01/24/21 08/19/20 History release folic acid 1 mg tablet 1 mg PO DAILY tab 08/19/19 01/24/21 08/19/20 History multivitamin 1 cap PO QAM 08/19/19 01/24/21 08/19/20 History levetiracetam 500 mg tablet 500 mg PO BID 12/01/19 01/24/2108/19/21 History albuterol sulfate 2.5 mg INHALATION Q4H PRN 12/29/19 01/24/21 08/19/20 History ondansetron 4 mg disintegrating 4 - 8 mg PO Q6H PRN 12/29/19 01/24/21 08/20/20 History tablet albuterol sulfate 2 puff INHALATION Q4H PRN 03/17/20 01/24/21 08/19/20 History diclofenac sodium 2 gm TOPICAL QID PRN 03/17/20 01/24/21 08/19/20 History ibuprofen 400 mg PO PRN 03/17/20 01/24/21 08/19/20 History tramadol 50 mg PO BID PRN 03/17/20 01/24/21 08/19/20 History turmeric 3 tab PO DAILY 03/17/20 01/24/21 08/19/20 History loperamide [Imodium A-D] See Rx Instructions .ROUTE .COMPLEX 03/19/20 01/24/21 08/19/20 History pantoprazole 40 mg tablet,delayed 40 mg PO QAM 210 Days #30 tab 07/03/20 01/24/21 08/19/20 Rx release leflunomide 20 mg tablet 20 mg PO DAILY #90 tab 08/01/20 01/24/21 08/19/20 Rx sulfasalazine 500 mg tablet 1,000 mg PO BID #360 tab 08/01/20 01/24/21 08/19/20 Rx diphenoxylate-atropine [Lomotil] 1 tab PO DAILY 08/15/20 01/24/21 08/19/20 History citalopram 20 mg tablet 20 mg PO DAILY 12/05/20 01/24/21 Unknown History fluticasone fur. 100 mcg-umeclid 1 inh INHALATION DAILY 30 Days #60 12/25/20 01/24/21 Unknown Rx 62.5 mcg-vilant 25 mcg ea inhalat.powder Allergies Allergy/AdvReac Type Severity Reaction Status Date / Time Penicillins Allergy Severe anaphylaxis Verified 01/31/21 03:14 amoxicillin Allergy ALGY-Anaphy Verified 01/31/21 03:14 laxis egg yolk Allergy SWELLING Verified 01/31/21 03:14 Influenza Virus Vaccines Allergy SWELLING Verified 01/31/21 03:14 morphine Allergy unknown Verified 01/31/21 03:14 PFSH Acute PFSH: Medical History Cerebral aneurysm COPD (chronic obstructive pulmonary disease) exacerbation Fatigue Rheumatoid arthritis with rheumatoid factor 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 systems involvement Surgical History H/O brain surgery x7 H/O esophagogastroduodenoscopy (08/20/20) H/O tubal ligation History of colonoscopy Family History Other CAD (coronary artery disease) Cancer Rheumatoid arthritis Stroke Denies family history of Diabetes Chronic kidney disease (CKD) Systemic lupus erythematosus (SLE) in adult Hypertension Social History Smoking and tobacco status: former smoker Quit status (tobacco): has quit using tobacco Year quit tobacco: 2004 - 1PPD x 50 Years Second hand smoke exposure: No Smoking risk assessment/counseling performed?: No Alcohol intake: never Lives independently: Yes Household members: spouse Marital status: Current occupational status: unemployed Pets and animals: Yes History of recent travel: No Current gender identity: Female Vitals/I&O/Wt Last Vital Signs Temp 98.1 F 01/31/21 05:26 Pulse 108 H 01/31/21 05:26 Resp 20 H 01/31/21 05:26 BP 108/66 01/31/21 05:26 Pulse Ox 94 01/31/21 05:26 01/30/21 01/30/21 01/31/21 14:59 22:59 06:59 Intake Total 300 / 300 Balance 300 / 300 Weight last 48 hrs Weight 68.039 kg Physical Exam Narrative: EXAM NARRATIVE: General- awake alert in mild respiratory distress HEENT -grossly unremarkable Chest- mildly labored respiration with decreased air entry bilaterally CVS- regular rate rhythm Abdomen-soft nontender non distended Extremities-no significant edema Data : 01/31/21 03:40 01/31/21 03:40 A&P Assessment and plan (1) COPD (chronic obstructive pulmonary disease): Status: Acute Qualifiers: COPD type: unspecified COPD Qualified Code(s): J44.9 - Chronic obstructive pulmonary disease, unspecified (2) Rheumatoid arthritis with rheumatoid factor 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 systems involvement: Status: Chronic Acute on chronic hypoxemia respiratory failure COPD exacerbation with possible superimposed multi-focal pneumonia Continue supplemental oxygen as needed -wean to baseline Consider pulmonary consultation DuoNeb treatments q.6 hours scheduled Solu-Medrol 40 mg IV q.8 hours Rocephin 1 g IV daily Azithromycin 500 mg IV daily Additional Medical Problems Rheumatoid Arthritis Chronic immunosuppression Hx of IC aneurysm s/p clip Hx of COVID-19 Infection Depression GERD DVT ppx SCD - No pharmacological due to hx of IC aneurysm/ possible bleed Attestations Medical Necessity Statement*: Anticipate over 2 midnights stay in hospital for evaluation and treatment Time Spent in Patient Care: Greater than 35 minutes (>than 50% of time spent in counselling and/or direct pt care on unit). Coding Level of Care Code Acute [employer] for Miri Valerio Diagnoses COPD (chronic obstructive pulmonary disease) J44.9 COPD type: unspecified COPD Rheumatoid arthritis with rheumatoid factor 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 systems involvement M05.79
[2021-01-31] MEDS: pantoprazole DR 40 mg Tablet PO (08:30)
--- NOTE | 2021-01-31 09:36 | PC.PHAR ---
pt states she takes care of her own medications-pt states she finished her prednisone 20mg on 01/27/21 and her levofloxacin 750mg on 01/29/21-pt states she is still taking keppra 500mg bid last filled on 10/04/20 90d/s charli states the rx has no refills-
[2021-01-31] MEDS: ondansetron 2 mg/ML SDV 2 mL 4 MG IVP (10:10)
--- NOTE | 2021-01-31 10:42 | PC.CHAP ---
Pastoral Care Encounter/Spiritual Assessment Type of Contact [] Declined master planner visit [] Patient/Family/Request visit [] Outpatient visit [] Follow-up visit [] Physician referral [] Code/Alert [x] Routine visit [] Staff referral [] Actively dying [] Patient sleeping [] Family support [] [] Out of room [] Palliative care [] [x] Receiving care in room [] Pre-surgical visit [] Trauma [x] Long length of stay [] ICU visit [] Other: Relational/Emotional Strength [x] Patient feels connected with others/family/visitors/staff [] Distress [] Loneliness/isolation [] Abandonment Spirituality of Patient [x] Person of [place] [] Attends Yazdanism of their [place] [x] Believes in Prayer [] Reads Bible or Scientologist materials [] There are Spiritual issues to be addressed Women'S Apparel Salesperson Interventions [x] Prayer [x] Active listening [x] Non-anxious presence [x] Spiritual/emotional support [] Crisis/trauma care [x] Spiritual counseling [] Bereavement support [] Provided bereavement packet [] Provided Bible/devotional materials [] Provided toy/stuffed animal, coloring book to patient or family member [] Provided Communion [] Anointing/[place] [] Salvation [x] Completed spiritual assessment [] Other: Impact on Illness or Injury [] Angry [] Fearful [x] Anxious [] Often cries [] Exhaustion [x] Unable to work [] Unable to attend rastafarian [] Unable to walk/stand [] Unable to read [] Unable to drive [] Unable to eat/drink [] Unable to sleep [] Unable to be with family [] Patient intubated [] Other: Summary doesn't know about her health she has a good attitude residential, wants to go home Time spent with patient 10 mins
--- NOTE | 2021-01-31 11:15 | P.PN_ITS ---
Subjective Subjective: Interval history: Admitted overnight. H&P and labs noted. Records reviewed. On examination patient lying in bed on 5 L nasal cannula gets dyspneic on conversation. She states she has been having the symptoms going on for last few months and has been getting worse eventually. She has been on steroids and multiple course of antibiotics during this time. She denies any fevers but does complain of subjective feeling of fevers, denies hemoptysis complains of expectoration. Vitals/I&O/Wt Last Vital Signs Temp 97.5 F L 01/31/21 07:49 Pulse 101 H 01/31/21 08:55 Resp 18 01/31/21 08:47 BP 122/62 01/31/21 07:49 Pulse Ox 93 01/31/21 08:47 01/30/21 01/31/21 01/31/21 22:59 06:59 14:59 Intake Total 300 / 300 Output Total 650 / 650 Balance 300 / 300 -650 / -650 Weight last 48 hrs Weight 68.039 kg Physical Exam Narrative: EXAM NARRATIVE: General: In acute distress because of difficulty in breathing, AOx3 HEENT: PERRLA, pupils bilaterally equal and reactive Chest: Bronchial breath sounds all over the lung [place], good equal air entry bilaterally, diffuse crackles present all over the lung [place] CVS: S1-S2 regular, no murmurs, no tachycardia, no gallops, no rubs Abdomen: Soft, nontender, no organomegaly, bowel sounds present Neuro: No focal deficits, no facial deformity, AO x3, power 5/5 in all limbs Data : 01/31/21 03:40 01/31/21 03:40 Micro: Microbiology 01/31/21 06:19 Blood Culture - Preliminary Blood SPECIMEN COLLECTED 01/31/21 06:10 Blood Culture - Preliminary Blood SPECIMEN COLLECTED A&P Assessment and plan (1) ARDS (adult respiratory distress syndrome): Status: Acute (2) Respiratory failure with hypoxia: Status: Acute (3) Emphysema of lung: Status: Acute Qualifiers: Emphysema type: unspecified Qualified Code(s): J43.9 - Emphysema, unspecified (4) COPD (chronic obstructive pulmonary disease): Status: Acute Qualifiers: COPD type: unspecified COPD Qualified Code(s): J44.9 - Chronic obstructive pulmonary disease, unspecified (5) Pleural effusion: Status: Acute (6) Rheumatoid arthritis with rheumatoid factor 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 systems involvement: Status: Chronic (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: Status: Acute Acute on chronic hypoxemia respiratory failure COPD exacerbation with possible superimposed multi-focal pneumonia Continue supplemental oxygen as needed -wean to baseline Consider pulmonary consultation DuoNeb treatments q.6 hours scheduled Solu-Medrol 40 mg IV q.8 hours Rocephin 1 g IV daily Azithromycin 500 mg IV daily Additional Medical Problems Rheumatoid Arthritis Chronic immunosuppression Hx of IC aneurysm s/p clip Hx of COVID-19 Infection Depression GERD DVT ppx SCD - No pharmacological due to hx of IC aneurysm/ possible bleed Additional A&P Information Acute on chronic hypoxic respiratory failure/ARDS: Most likely secondary to atypical pneumonia causing acute exacerbation of COPD: Patient does have pleural effusion seems to be loculated but has been changed much on the repeat imaging today. Given the fact that patient is on immunosuppressive therapy for rheumatoid arthritis with leflunomide, sulfasalazine without any prophylaxis suspicion for atypical/fungal pneumonia. Check sputum culture, Aspergillus antigen, bacterial antigen, Legionella antigen, respiratory viral panel, Fungitell, G6PD, flu swab, MRSA swab, P MARLENE PCR on induced sputum. Check LDH. Check procalcitonin, proBNP. Put patient on broad-spectrum antibiotics with vancomycin and imipenem as patient is allergic to penicillin. We will follow blood cultures. Continue with azithromycin. Start patient on Bactrim DS twice daily. Will monitor renal functions. Patient is on leflunomide so we will also have to rule out tuberculosis. QuantiFERON. COVID-19 rapid antigen negative in the ER yesterday. Pulmonary toilet with incentive spirometry and flutter valve. Continue with DuoNebs every 4 hours, budesonide twice daily. With IV Solu-Medrol 40 mg every 8 hours. Oxygen supplementation keeping saturation over 90%. We will consult pulmonology for further recommendation and possibly bronchoscopy. Stop leflunomide, sulfasalazine now. Continue other chronic medication including Flexeril, Keppra, Protonix, duloxetine. Check iron panel, ferritin, EKG, TSH. CODE STATUS: Discussed with patient in detail. We discussed that unfortunately given her severe COPD if patient goes on a ventilator is quite possible that patient will be ventilator dependent versus high risk extubation. Patient states she would not want to be intubated but is okay with chest compressions if needed. She is okay with intubation if needed for bronchoscopy. Cardiac diet. N.p.o. after midnight for possible bronchoscopy tomorrow. Heparin 5000 every 12 hourly. Attestations Medical Necessity Statement*: Patient requires further hospitalization for management of moderate ARDS because of pneumonia and acute exacerbation of COPD Time Spent in Patient Care: Greater than 35 minutes (>than 50% of time spent in counselling and/or direct pt care on unit) . Coding Level of Care Code Acute Corporate Manager for Miri Vlaerio Diagnoses ARDS (adult respiratory distress syndrome) J80 Respiratory failure with hypoxia J96.91 Emphysema of lung J43.9 Emphysema type: unspecified COPD (chronic obstructive pulmonary disease) J44.9 COPD type: unspecified COPD Pleural effusion J90 Rheumatoid arthritis with rheumatoid factor 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 systems involvement M05.79 Immunodeficiency secondary to chemotherapy Z79.899
[2021-01-31 11:26] LABS: Iron 34 ug/dL (37-145); Percent Saturation 14.2 % (20-50); Total Iron Binding Capacity 238 mcg/dl; Unsaturated Iron Binding 204 ug/dL (112-347)
[2021-01-31 11:33] LABS: Procalcitonin 0.07 ng/mL (0-0.5)
[2021-01-31 11:34] LABS: Thyroid Stimulating Hormone 3.73 uIU/mL (0.27-4.20)
[2021-01-31] MEDS: oxyCODONE-APAP 5-325 mg Tablet 1 TAB PO ×2 (12:25→21:29)
[2021-01-31 12:37] LABS: Lactate Dehydrogenase 544 U/L (135-214)
--- NOTE | 2021-01-31 13:00 | CTR_ITS ---
PROCEDURE INFORMATION: Exam: CTA Chest With Contrast Exam date and time: 01/31/2021 1:00 PM Age: 70 years old Clinical indication: Shortness of breath; Sternal or substernal pain; Patient HX: Central cp and SOB x weeks; Additional info: Copd, pneumonia, loculated effusion TECHNIQUE: Imaging protocol: Computed tomographic angiography of the chest with contrast. 3D rendering (Not supervised by radiologist): MIP and/or 3D reconstructed images were created by the technologist. Radiation optimization: All CT scans at this facility use at least one of these dose optimization techniques: automated exposure control; mA and/or kV adjustment per patient size (includes targeted exams where dose is matched to clinical indication); or iterative reconstruction. Contrast material: OMNI 350; Contrast volume: 71 ml; Contrast route: INTRAVENOUS (IV); COMPARISON: 1. CTA Chest-Pulmonary Emb [id number] 04/23/2018 10:[address] chest wo con [id number] 12/18/2020 1:23:52 PM RADIATION DOSE METRICS: Total DLP (mGy-cm): 548.98 FINDINGS: Pulmonary arteries: Normal. No pulmonary emboli. Aorta: Unremarkable. No aortic aneurysm. No aortic dissection. Lungs: Severe centrilobular emphysema. Stable 3 mm right upper lobe nodule, series 2, image 83. Patchy ground-glass opacities in the inferior right upper lobe and right middle lobe. 5.1 cm focal consolidation in the posterior right lower lobe. Mild ground-glass opacities in the lingula. 8 mm left lower lobe nodule, image 306. Pleural spaces: Circumferential nodular thickening of the entire left parietal pleura has significantly worsened, measuring up to 3.0 cm in thickness. Multiple visceral pleural-based nodules studded along the left major fissure measuring up to 1.5 cm in thickness. There are numerous nodules scattered along the visceral pleural surface of the left lung measuring up to 2.6 cm. Heart: Unremarkable. No cardiomegaly. No pericardial effusion. Lymph nodes: Prominent middle mediastinal and left hilar lymph nodes, measuring up to 1.6 cm in the left hilum. Bones/joints: T4, T6, T7, T8, T9, and T12 compression fractures. Scoliosis. Soft tissues: Unremarkable. CT/CT angio chest PE protcl [id number] IMPRESSION: 1. No evidence for pulmonary embolus. 2. Circumferential nodular massing along the left parietal pleura and visceral pleural surfaces of the lung. 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 Tissue sampling is recommended. 3. 8 mm left lower lobe and 3 mm right upper lobe nodules could represent metastasis. 4. Mildly enlarged mediastinal and left hilar lymph nodes are suspicious for metastatic disease. 5. Patchy ground-glass opacities in both lungs and right lower lobe consolidation, most likely pneumonia. 6. Severe emphysema. 7. Multiple chronic thoracic compression fractures. Radiation Dose CTDIVOL = (mGy): DLP = 548.98 (mGy-cm)
--- NOTE | 2021-01-31 13:03 | ECG_ITS ---
[facility] ED Test Date: 2021-01-31 Pat Name: Whitney Dial Department: Room: 252 Gender: Female Material Expediter: : 1950 Requested By: Al Ruvalcaba Order Number: [id number] [employer] MD: Kae Murphy M.D. Measurements Intervals [place] Rate: 106 P: 23 GA: 140 QRS: 55 QRSD: 76 T: 54 QT: 330 QTc: 439 Interpretive Statements SINUS TACHYCARDIA ABNORMAL RHYTHM ECG Compared to ECG 03/19/2020 16:06:52 Sinus rhythm no longer present Electronically Signed On 02-01-2021 22:38:02 CDT by Kae Murphy M.D. [id number]
[2021-01-31 13:21] LABS: Influenza A by IFA Negative (Negative); Influenza B by IFA Negative (Negative)
--- NOTE | 2021-01-31 13:21 | P.CONIM_ITS ---
Providers/Reason For Consult Consulting Physician/Specialty*: Aston Weems MD / Pulmonary Critical Care Reason for Consult*: acute hypoxic & hypercapneic respiratory failure secondary to COPD exacerbation due to bacterial vs PCP pneumonia as pt is on Actemra and leflunomide. 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 She was treated for pneumonia twice (October 2020 & november 2020). Chest x-ray in November 2019 showed? Left lower lobe infiltrate with pleural thickening. CT chest from December 18, 2020 showed a loculated left-sided pleural effusion, bilateral lower lobe infiltrates with paraseptal emphysema. During her clinic visit with Dr. Carmona on 12/26/2019 she denied any fever, night sweats, chills complained of left-sided pleuritic chest pain. Again on 01/23/21 she saw her PCP complaining of increasing left pleuritic chest pain and fever with chills. She was started on Levaquin 500 mg once daily for 7 days and. P.o. prednisone and was referred to see me in clinic on 01/24/[address] Carmona is out of office. On the day bedside ultrasound showed very minimal left pleural effusion which was difficult to tap. Recommended to continue Levaquin and prednisone started by PCP and to hold off Actemra and leflunomide at that point of time. Patient presented to emergency room yesterday with shortness of breath and has to increase her oxygen to 5 L nasal cannula. She denied fevers but complained of subjective fevers and worsening shortness of breath. She was admitted to [facility] floor for acute hypoxic and hypercapnic respiratory failure secondary to COPD exacerbation with possible superimposed multifocal pneumonia and started on DuoNeb treatments every 6 hours scheduled, Solu-Medrol 40 every 8 hours and Rocephin 1 g daily and azithromycin 500 mg daily. Pulmonary team consulted for acute hypercapnic respiratory failure secondary inpatient with severe COPD and possible superimposing pneumonia and for possible bronchoscopy and BAL. Patient seen at bedside today reported that her shortness of breath worsened since yesterday evening and she has to increase her oxygen to 5 L nasal cannula. Reported that she was feeling better when she was on p.o. steroids. Also complained of productive cough with thick mucus yellowish in color. Denied any other complaints Review of Systems General: Reports: 10 or more systems reviewed and unremarkable except in HPI and below Meds/Allergies Home Medications and Allergies Home Medications Medication Instructions Recorded Confirmed Last Taken Type cyclobenzaprine 10 mg tablet 10 mg PO TID PRN 08/19/19 01/31/21 08/19/20 History folic acid 1 mg tablet 1 mg PO DAILY tab 08/19/19 01/31/21 08/19/20 History levetiracetam 500 mg tablet 500 mg PO BID 12/01/19 01/31/21 08/19/20 History ondansetron 4 mg disintegrating 4 mg PO QAM 12/29/19 01/31/21 08/20/20 History tablet albuterol sulfate 2 puff INHALATION Q4H PRN 03/17/20 01/31/21 08/19/20 History diclofenac sodium 2 gm TOPICAL QID PRN 03/17/20 01/31/21 08/19/20 History tramadol 50 mg PO BID PRN 03/17/20 01/31/21 08/19/20 History loperamide [Imodium A-D] 2 - 4 mg PO PRN 03/19/20 01/31/21 08/19/20 History sulfasalazine 500 mg tablet 1,000 mg PO BID #360 tab 08/01/20 01/31/21 08/19/20 Rx diphenoxylate-atropine [Lomotil] 1 tab PO Q6H PRN 08/15/20 01/31/21 08/19/20 History fluticasone fur. 100 mcg-umeclid 1 inh INHALATION DAILY 30 Days #60 12/25/20 01/31/21 Unknown Rx 62.5 mcg-vilant 25 mcg ea inhalat.powder Rub On Relief 1 applic TOPICAL PRN 01/31/21 01/31/21 Unknown History citalopram 10 mg PO BEDTIME 01/31/21 01/31/21 Unknown History duloxetine 60 mg PO BEDTIME 01/31/21 01/31/21 Unknown History ipratropium-albuterol See Rx Instructions .ROUTE .COMPLEX 01/31/21 01/31/21 Unknown History leflunomide 20 mg PO BEDTIME 01/31/21 01/31/21 Unknown History multivitamin 1 tab PO DAILY 01/31/21 01/31/21 Unknown History omeprazole 40 mg PO QAM 01/31/21 01/31/21 Unknown History oxycodone-acetaminophen 1 tab PO Q4H PRN 01/31/21 01/31/21 Unknown History Allergies Allergy/AdvReac Type Severity Reaction Status Date / Time Penicillins Allergy Severe anaphylaxis Verified 01/31/21 14:22 amoxicillin Allergy ALGY-Anaphy Verified 01/31/21 14:22 laxis egg yolk Allergy SWELLING Verified 01/31/21 14:22 Influenza Virus Vaccines Allergy SWELLING Verified 01/31/21 14:22 morphine Allergy unknown Verified 01/31/21 14:22 Current Medications Current Medications Generic Name Dose Route Start Last Admin Trade Name Freq PRN Reason Stop Dose Admin Albuterol/Ipratropium 3 ml 01/31/21 12:00 01/31/21 12:47 Ipratropium-Albuterol 3 Ml Neb INHALATION 3 ml Q4H.RESPIRATORY SUJIT Administration Imipenem/Cilastatin Sodium 500 100 mls @ 200 mls/hr 01/31/21 11:30 01/31/21 12:25 mg/ Sodium Chloride IV 200 mls/hr Q6H SUJIT Administration Protocol Methylprednisolone Sodium Succinate 40 mg 01/31/21 11:00 01/31/21 10:10 Methylprednisolone Sod Succ 40 Mg/Ml Inj IVP 40 mg Q8H SUJIT Administration Ondansetron HCl 4 mg 01/31/21 06:21 01/31/21 10:10 Ondansetron 2 Mg/Ml Sdv 2 Ml IVP 4 mg Q8H PRN Administration vomiting, or N/V if npo Oxycodone/Acetaminophen 1 tab 01/31/21 10:46 01/31/21 12:25 Oxycodone-Apap 5-325 Mg Tablet PO 1 tab Q4H PRN Administration MODERATE Pain Pantoprazole Sodium 40 mg 01/31/21 09:00 01/31/21 08:[address] 40 Mg Tablet PO 40 mg DAILY SUJIT Administration PFSH Acute PFSH: Medical History Cerebral aneurysm COPD (chronic obstructive pulmonary disease) exacerbation COVID-19 Fatigue Rheumatoid arthritis with rheumatoid factor 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 systems involvement Surgical History H/O brain surgery x7 H/O esophagogastroduodenoscopy (08/20/20) H/O tubal ligation History of colonoscopy Family History Other CAD (coronary artery disease) Cancer Rheumatoid arthritis Stroke Denies family history of Diabetes Chronic kidney disease (CKD) Systemic lupus erythematosus (SLE) in adult Hypertension Social History Smoking and tobacco status: former smoker Quit status (tobacco): has quit using tobacco Year quit tobacco: 2005 - 1PPD x 50 Years Second hand smoke exposure: No Smoking risk assessment/counseling performed?: No Alcohol intake: never Lives independently: Yes Household members: spouse Marital status: Current occupational status: unemployed Pets and animals: Yes History of recent travel: No Current gender identity: Female Vitals/I&O/Wt Last Vital Signs Temp 97.9 F 01/31/21 11:30 Pulse 114 H 01/31/21 12:55 Resp 20 H 01/31/21 12:46 BP 102/59 01/31/21 11:30 Pulse Ox 92 01/31/21 12:46 01/30/21 01/31/21 01/31/21 22:59 06:59 14:59 Intake Total 300 / 300 Output Total 650 / 650 Balance 300 / 300 -650 / -650 Weight last 48 hrs Weight 150 lb Physical Exam Narrative: EXAM NARRATIVE: General: alert, in moderate respiratory distress on 5 L nasal cannula Pain: 0/10 HEENT: conj clear, EOMI, PERRL, mmm, Neck: supple, no meningismus Heme: no cervical LAP Pulmonary: Bilateral air entry present, diffuse end expiratory wheeze bilaterally Cardiovascular: rrr, nl s1s2, no mrg Abdomen: soft, nt, nd, no r/g, bs+ Extremities: pulses +, no edema, no c/c : no CVA tenderness Skin: intact, no rash MSK: no back or neck pain Neurologic: grossly intact Data Labs: Other Labs: Laboratory Results WBC 9.8 10^3/uL (4.0- 10.0) 01/31/21 03:40 RBC 3.54 10^6/uL (4.1 -5.3) L 01/31/21 03:40 Hgb 10.8 g/dL (11.5-1 5.3) L 01/31/21 03:40 Hct 35.9 % (37.0-47.0 ) L 01/31/21 03:40 MCV 101.4 fL (81-99) H 01/31/21 03:40 MCH 30.5 pg (28.0-34. 0) 01/31/21 03:40 MCHC 30.1 g/dL (30.0-3 6.0) 01/31/21 03:40 RDW 17.3 % (12.1-15.1 ) H 01/31/21 03:40 Plt Count 199 10^3/cmm (130 -400) 01/31/21 03:40 MPV 9.8 fL (7.4-10.4) 01/31/21 03:40 Neut % (Auto) 79.8 % 01/31/21 03:40 Lymph % (Auto) 10.3 % 01/31/21 03:40 [place] % (Auto) 4.1 % 01/31/21 03:40 Eos % (Auto) 4.3 % 01/31/21 03:40 Baso % (Auto) 0.9 % 01/31/21 03:40 Neut # (Auto) 7.81 10^3/uL (1.8 -7.7) H 01/31/21 03:40 Lymph # (Auto) 1.0 10^3/uL (0.8- 4.8) 01/31/21 03:40 [place] # (Auto) 0.4 10^3/uL (0.2- 0.9) 01/31/21 03:40 Eos # (Auto) 0.4 10^3/uL (0.0- 0.8) 01/31/21 03:40 Baso # (Auto) 0.1 10^3/uL (0.0- 0.1) 01/31/21 03:40 Nucleated RBC % (a uto) 0 % 01/31/21 03:40 Nucleated RBCs # 0.0 /100WBC 01/31/21 03:40 Specimen Type Arterial 01/31/21 03:41 Sample Site Brachial, right 01/31/21 03:41 ABG pH 7.38 (7.35-7.45) 01/31/21 03:41 ABG pCO2 50.8 mmHg (35-45) H 01/31/21 03:41 ABG pO2 70.6 mmHg (80.0-1 00.0) L 01/31/21 03:41 ABG HCO3 29.8 mmol/L (22-2 6) H 01/31/21 03:41 ABG Base Excess 3.7 mmol/L (-2.0- 2.0) H 01/31/21 03:41 Reji Test Pos 01/31/21 03:41 Hematocrit 37.2 % (37-47) 01/31/21 03:41 Hgb O2 Saturation 89.9 % (95-100) L 01/31/21 03:41 Carboxyhemoglobin < 0.0 %THgb (0.4- 20.1) L 01/31/21 03:41 Methemoglobin 1.5 % (0.4-1.5) 01/31/21 03:41 Total Hemoglobin 12.1 g/dL (12-16) 01/31/21 03:41 O2 Delivery Device Nc 01/31/21 03:41 O2 Liters/Min 5.0 % 01/31/21 03:41 Library Technician ID Francesco 01/31/21 03:41 Sodium 140 mmol/L (136-1 45) 01/31/21 03:40 Potassium 4.0 mmol/L (3.5-5 .1) 01/31/21 03:40 Chloride 101 mmol/L (98-10 7) 01/31/21 03:40 Carbon Dioxide 30 mmol/L (22-29) H 01/31/21 03:40 Anion Gap 13.0 (5-19) 01/31/21 03:40 BUN 9 mg/dL (8-23) 01/31/21 03:40 Creatinine 0.5 mg/dL (0.5-0. 9) 01/31/21 03:40 GFR Calculation Not Reportable 01/31/21 03:40 Glucose 107 mg/dL (65-115 ) 01/31/21 03:40 Calculated Osmolal ity 289 mOsm/kg (285- 295) 01/31/21 03:40 Calcium 9.4 mg/dL (8.5-10 .5) 01/31/21 03:40 Iron 34 ug/dL (37-145) L 01/31/21 03:40 TIBC 238 mcg/dl 01/31/21 03:40 % Saturation 14.2 % (20-50) L 01/31/21 03:40 Unsat Iron Binding 204 ug/dL (112-34 7) 01/31/21 03:40 Total Bilirubin 0.3 mg/dL (0.15-1 .2) 01/31/21 03:40 AST 39 U/L (0-32) H 01/31/21 03:40 ALT 9 U/L (0-33) 01/31/21 03:40 Alkaline Phosphata se 139 IU/L (35-105) H 01/31/21 03:40 Lactate Dehydrogen ase 544 U/L (135-214) H 01/31/21 03:40 NT-Pro-B Natriuret Pep 264 pg/mL (0-125) H 01/31/21 03:40 Total Protein 6.6 g/dL (6.6-8.7 ) 01/31/21 03:40 Albumin 3.8 g/dL (3.5-5.2 ) 01/31/21 03:40 Globulin 2.8 g/dL (1.3-4.6 ) 01/31/21 03:40 Procalcitonin 0.07 ng/mL (0-0.5 ) 01/31/21 03:40 TSH 3.73 uIU/mL (0.27 -4.20) 01/31/21 03:40 Influenza Type A A g Negative (Negati ve) 01/31/21 11:20 Influenza Type B A g Negative (Negati ve) 01/31/21 11:20 SARS-CoV-2 Ag (Rap id) Negative (Negati ve) 01/31/21 03:20 Impressions Chest X-Ray 01/31/21 03:09 IMPRESSION: Pulmonary edema versus COVID-19. Stable nodularity of the pleura in the left hemithorax. Micro: Micro: Microbiology 01/31/21 06:19 Blood Culture - Pr eliminary Blood SPECIMEN [facility] 01/31/21 06:10 Blood Culture - Pr eliminary Blood SPECIMEN [facility] A&P Assessment and plan (1) ARDS (adult respiratory distress syndrome): Status: Acute (2) Respiratory failure with hypoxia: Status: Acute Qualifiers: Chronicity: acute on chronic Qualified Code(s): J96.21 - Acute and chronic respiratory failure with hypoxia (3) Emphysema of lung: Status: Acute Qualifiers: Emphysema type: unspecified Qualified Code(s): J43.9 - Emphysema, unspecified (4) High risk medication use: Status: Acute (5) Rheumatoid arthritis with rheumatoid factor 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 systems involvement: Status: Chronic (6) Loculated pleural effusion: Status: Acute (7) COPD exacerbation: Status: Acute #Respiratory failure with hypoxia and hypercapnia likely secondary to superimposing bacterial pneumonia versus PCP pneumonia in patient with underlying COPD and rheumatoid arthritis on leflunomide and Actemra #RA - being treated with Tocilizumab, leflunomide, sulfasalazine #COPD-GROUP D-on [facility] as outpatient #Loculated left-sided pleural effusion -Currently requiring 5 L nasal cannula-baseline 2 L nasal cannula -Chest x-ray at admission 01/31/2021: Showed increased pulmonary opacities bilaterally with increase in interstitial markings. Stable nodularity of the pleura in the left hemithorax. -ABG on 5 L nasal cannula 7.3 8/50/70/29/90% -IV Solu-Medrol 40 every 8-Taper based on clinical response -DuoNeb nebulization every 6 hour and Pulmicort 0.5 mg twice daily nebulization -Bronchscopy 01/31/21: Copious mucus secretions on both right lung and left lung were suctioned right away and BAL taken from right middle lobe and left upper lobe and sent for various studies including bacterial cultures, AFB, fungal cultures, PCP, galactomannan, Aspergillus, cytology -broad-spectrum antibiotics with vancomycin and imipenem as patient is allergic to penicillin. -Follow-up blood cultures. Continue with azithromycin for atypical coverage -Patient was on immunosuppressive medications so we will start treatment for PCP Bactrim DS twice daily. recommended to Hold tocilizumab, leflunomide, sulfasalazine. Will monitor renal functions. - COVID-19 rapid antigen negative in the ER yesterday. - Pulmonary toilet with incentive spirometry and flutter valve. -Continue clinical monitoring and respiratory status -Chest x-ray did not show any worsening of loculated left pleural effusions. Will obtain CT chest Medical condition, plan of care everything explained in detail to patient and her . They verbalized understanding and agreed with the plan. Recommendations conveyed to hospitalist covering the patient Consult Attestations Medical Necessity Statement: Acute hypoxic and hypercapnic respiratory failure in patient with underlying COPD and RA on immunosuppressive medications-likely superimposing bacterial versus PCP pneumonia. Increased requirement of baseline home oxygen to 5 L nasal cannula-need at least 2 midnights for close clinical monitoring and response to IV steroids, nebulizations, antibiotics and PCP treatment Time Spent in Patient Care: Greater than 35 minutes (>than 50% of time spent in counselling and/or direct pt care on unit) . 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
[2021-01-31] MEDS: levETIRAcetam 500 mg Tablet PO ×2 (13:27→21:29)
[2021-01-31] MEDS: metoprolol tartrate 25 mg Tablet PO ×2 (13:33→21:29)
[2021-01-31] MEDS: vancomycin 750 MG in sodium chloride 0.9% 250 ML 250 MG IV ×2 (13:33→17:03)
[2021-01-31] MEDS: sodium chloride 0.9% 1,000 ML 30 ML IV (14:20)
--- NOTE | 2021-01-31 14:24 | P.ANESASSM_ITS ---
Documented by User: Ismael Melendez Jr, SHIFT SUPERVISOR MELTING 01/31/21 14:27 Pre-Anesthetic Assessment Pre-Anesthetic Assessment: Height/Weight: Height 1.57 m Weight 68.039 kg Temp Pulse Resp BP Pulse Ox 98.1 F 100 18 121/53 94 01/31/21 14:15 01/31/21 14:15 01/31/21 14:15 01/31/21 14:15 01/31/21 14:15 Preop Diagnosis: nausea and vomiting Proposed Procedure: Operation Date: 01/31/21 14:10 Proposed Procedures p Bronchoscopy(Not Applicable) - Aston Weems MD Was Beta Faith taken within 24 hours: Yes Last Intake: 09:00 Social: Social History: No alcohol and No tobacco Exam: Pre-Anes Outpt Exam: alert, oriented x 3, clear to auscultation bilaterally and regular rate & rhythm History/ROS: No significant history except as noted and No significant complaints Pulmonary: Pulmonary: COPD, Cough, ANDRADE, Orthopnea and SOB CV/HEM: CV/HEM: HTN : : None reported Hepatic: Hepatic: None reported GI: GI: GERD Metabolic: Metabolic: None reported Neuropsych: Comments: multiple brain anuerysm clippings Mar, 2019 Anesthetic Plan: ASA status: 4 Anesthesia: Anesthesia Evaluation and MAC Risk of > 500 ml blood loss (7ml/kg in children): No Meds/Allergies Current Medications: Current Medications Generic Name Dose Route Start Last Admin Trade Name Freq PRN Reason Stop Dose Admin Albuterol/Ipratrop ium 3 ml 01/31/21 12:00 01/31/21 12:47 Ipratropium-Albu terol 3 Ml Neb INHALATION 3 ml Q4H.RESPIRATORY S CH Administration Vancomycin HCl 750 mg/ Sodium 250 mls @ 250 mls /hr 01/31/21 12:00 01/31/21 13:33 Chloride IV 250 mls/hr Q12H SUJIT Administration Protocol As Directed Imipenem/Cilastati n Sodium 500 100 mls @ 200 mls /hr 01/31/21 11:30 01/31/21 12:25 mg/ Sodium Chlor anne IV 200 mls/hr Q6H SUJIT Administration Protocol Sodium Chloride 1,000 mls @ 30 ml s/hr 01/31/21 14:15 01/31/21 14:20 Sodium Chloride 0.9% IV 02/01/21 14:14 30 mls/hr .Q24H SUJIT Administration Levetiracetam 500 mg 01/31/21 13:00 01/31/21 13:27 Levetiracetam 50 0 Mg Tablet PO 500 mg BID@0900,2100 SUJIT Administration Methylprednisolone Sodium Succinate 40 mg 01/31/21 11:00 01/31/21 10:10 Methylprednisolo ne Sod Succ 40 Mg/ Ml Inj IVP 40 mg Q8H SUJIT Administration Metoprolol Tartrat e 25 mg 01/31/21 13:05 01/31/21 13:33 Metoprolol Tartr ate 25 Mg Tablet PO 25 mg BID@0900,2100 SUJIT Administration Ondansetron HCl 4 mg 01/31/21 06:21 01/31/21 10:10 Ondansetron 2 Mg /Ml Sdv 2 Ml IVP 4 mg Q8H PRN Administration vomiting, or N/V if npo Oxycodone/Acetamin ophen 1 tab 01/31/21 10:46 01/31/21 12:25 Oxycodone-Apap 5 -325 Mg Tablet PO 1 tab Q4H PRN Administration MODERATE Pain Pantoprazole Sodiu m 40 mg 01/31/21 09:00 01/31/21 08:[address] 40 Mg Tablet PO 40 mg DAILY SUJIT Administration PFSH Anesthesia PFSH: Medical History (Updated 01/31/21 @ 12:55 by Al Ruvalcaba MD) Cerebral aneurysm COPD (chronic obstructive pulmonary disease) exacerbation COVID-19 Fatigue Rheumatoid arthritis with rheumatoid factor 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 systems involvement Surgical History H/O brain surgery x7 H/O esophagogastroduodenoscopy (08/20/20) H/O tubal ligation History of colonoscopy Family History Other CAD (coronary artery disease) Cancer Rheumatoid arthritis Stroke Denies family history of Diabetes Chronic kidney disease (CKD) Systemic lupus erythematosus (SLE) in adult Hypertension Social History Smoking and tobacco status: former smoker Quit status (tobacco): has quit using tobacco Year quit tobacco: 2005 - 1PPD x 50 Years Second hand smoke exposure: No Smoking risk assessment/counseling performed?: No Alcohol intake: never Lives independently: Yes Household members: spouse Marital status: Current occupational status: unemployed Pets and animals: Yes History of recent travel: No Current gender identity: Female Data Anesthesia CBC & Chem 7: 01/31/21 03:40 01/31/21 03:40 Other Labs: Laboratory Results - last 48 hr 01/31/21 01/31/21 01/31/21 03:20 03:40 03:40 WBC 9.8 RBC 3.54 L Hgb 10.8 L Hct 35.9 L MCV 101.4 H MCH 30.5 MCHC 30.1 RDW 17.3 H Plt Count 199 MPV 9.8 Neut % (Auto) 79.8 Lymph % (Auto) 10.3 [place] % (Auto) 4.1 Eos % (Auto) 4.3 Baso % (Auto) 0.9 Neut # (Auto) 7.81 H Lymph # (Auto) 1.0 [place] # (Auto) 0.4 Eos # (Auto) 0.4 Baso # (Auto) 0.1 Nucleated RBC % (auto) 0 Nucleated RBCs # 0.0 Specimen Type Sample Site ABG pH ABG pCO2 ABG pO2 ABG HCO3 ABG Base Excess Reji Test Hematocrit Hgb O2 Saturation Carboxyhemoglobin Methemoglobin Total Hemoglobin O2 Delivery Device O2 Liters/Min Slot Floorperson ID Sodium 140 Potassium 4.0 Chloride 101 Carbon Dioxide 30 H Anion Gap 13.0 BUN 9 Creatinine 0.5 GFR Calculation Not Reportable Glucose 107 Calculated Osmolality 289 Calcium 9.4 Iron TIBC % Saturation Unsat Iron Binding Total Bilirubin 0.3 AST 39 H ALT 9 Alkaline Phosphatase 139 H Lactate Dehydrogenase NT-Pro-B Natriuret Pep 264 H Total Protein 6.6 Albumin 3.8 Globulin 2.8 Procalcitonin TSH Influenza Type A Ag Influenza Type B Ag SARS-CoV-2 Ag (Rapid) Negative 01/31/21 01/31/21 01/31/21 03:40 03:40 03:40 WBC RBC Hgb Hct MCV MCH MCHC RDW Plt Count MPV Neut % (Auto) Lymph % (Auto) [place] % (Auto) Eos % (Auto) Baso % (Auto) Neut # (Auto) Lymph # (Auto) [place] # (Auto) Eos # (Auto) Baso # (Auto) Nucleated RBC % (auto) Nucleated RBCs # Specimen Type Sample Site ABG pH ABG pCO2 ABG pO2 ABG HCO3 ABG Base Excess Reji Test Hematocrit Hgb O2 Saturation Carboxyhemoglobin Methemoglobin Total Hemoglobin O2 Delivery Device O2 Liters/Min Slot Floorperson ID Sodium Potassium Chloride Carbon Dioxide Anion Gap BUN Creatinine GFR Calculation Glucose Calculated Osmolality Calcium Iron 34 L TIBC 238 % Saturation 14.2 L Unsat Iron Binding 204 Total Bilirubin AST ALT Alkaline Phosphatase Lactate Dehydrogenase 544 H NT-Pro-B Natriuret Pep Total Protein Albumin Globulin Procalcitonin 0.07 TSH 3.73 Influenza Type A Ag Influenza Type B Ag SARS-CoV-2 Ag (Rapid) 01/31/21 01/31/21 03:41 11:20 WBC RBC Hgb Hct MCV MCH MCHC RDW Plt Count MPV Neut % (Auto) Lymph % (Auto) [place] % (Auto) Eos % (Auto) Baso % (Auto) Neut # (Auto) Lymph # (Auto) [place] # (Auto) Eos # (Auto) Baso # (Auto) Nucleated RBC % (auto) Nucleated RBCs # Specimen Type Arterial Sample Site Brachial, right ABG pH 7.38 ABG pCO2 50.8 H ABG pO2 70.6 L ABG HCO3 29.8 H ABG Base Excess 3.7 H Reji Test Pos Hematocrit 37.2 Hgb O2 Saturation 89.9 L Carboxyhemoglobin < 0.0 L Methemoglobin 1.5 Total Hemoglobin 12.1 O2 Delivery Device Nc O2 Liters/Min 5.0 Slot Floorperson ID Francesco Sodium Potassium Chloride Carbon Dioxide Anion Gap BUN Creatinine GFR Calculation Glucose Calculated Osmolality Calcium Iron TIBC % Saturation Unsat Iron Binding Total Bilirubin AST ALT Alkaline Phosphatase Lactate Dehydrogenase NT-Pro-B Natriuret Pep Total Protein Albumin Globulin Procalcitonin TSH Influenza Type A Ag Negative Influenza Type B Ag Negative SARS-CoV-2 Ag (Rapid) Micro: Microbiology 01/31/21 13:01 Gram Stain - Final Sputum - Expectorated Sputum 01/31/21 06:19 Blood Culture - Preliminary Blood SPECIMEN COLLECTED 01/31/21 06:10 Blood Culture - Preliminary Blood SPECIMEN COLLECTED Cardiac Studies: No Data to Display Documented by User: Charles Khan 01/31/21 15:29 PFSH Anesthesia PFSH: Medical History (Updated 01/31/21 @ 12:55 by Al Ruvalcaba MD) Cerebral aneurysm COPD (chronic obstructive pulmonary disease) exacerbation COVID-19 Fatigue Rheumatoid arthritis with rheumatoid factor 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 systems involvement Surgical History H/O brain surgery x7 H/O esophagogastroduodenoscopy (08/20/20) H/O tubal ligation History of colonoscopy Family History Other CAD (coronary artery disease) Cancer Rheumatoid arthritis Stroke Denies family history of Diabetes Chronic kidney disease (CKD) Systemic lupus erythematosus (SLE) in adult Hypertension Social History Smoking and tobacco status: former smoker Quit status (tobacco): has quit using tobacco Year quit tobacco: 2005 - 1PPD x 50 Years Second hand smoke exposure: No Smoking risk assessment/counseling performed?: No Alcohol intake: never Lives independently: Yes Household members: spouse Marital status: Current occupational status: unemployed Pets and animals: Yes History of recent travel: No Current gender identity: Female Data Anesthesia CBC & Chem 7: 01/31/21 03:40 01/31/21 03:40 Cardiac Studies: No Data to Display
--- NOTE | 2021-01-31 15:09 | P.OP_ITS ---
Operative Report Date of procedure: January 31, 2021 Procedure: Bronchoscopy for airway inspection and obtaining bronchoalveolar lavage sample Pre-Operative Diagnosis: Pneumonia Post-Operative Diagnosis: Same Indication: Acute hypoxic hypercapnic respiratory failure requiring 5 L nasal cannula and patient with underlying COPD and rheumatoid arthritis on immunosuppressive medications admitted with COPD exacerbation with possible superimposed bacterial pneumonia versus PCP pneumonia Anesthesia: Conscious sedation as per anesthesia Pre-procedure Evaluation: Patient was evaluated clinically and ancillary testing reviewed. ASA:4 ; Malampati score 2 Consent: Consents were obtained from patient and placed in the chart Procedure Details: Time out was performed by the procedure team and nursing staff. The bronchoscope was introduced through the ETT. A bronchoscopic airway exam was performed to evaluate the visible tracheobronchial tree to the segmental level. Summary of Significant Findings: -Bronchoscope passed through oral cavity. Noted thick mucus secretions at the glottic opening. 6 ml 1% lidocaine instilled at the level of glottis on vocal chords. Both vocal cords are mobile. The scope was passed further to visualize trachea which was noted to be normal and 2 mL 1% lidocaine instilled. Main frankie visualized which was sharp and normal. Then the scope was passed through the right bronchial tree was assessed to include the right mainstem bronchus, RBI, and RUL/RML/RLL bronchi to the segmental and subsegmental levels. No active bleeding noted. Mucosa appeared normal. Lot of thick mucus secretions noted in all the subsegments which were suctioned right away. Then the scope was passed through left bronchial tree and visualized left mainstem bronchus, AMANDA, Lingula, and LLL bronchi to the segmental and subsegmental level. No active bleeding noted. Mucosa appeared normal. Lot of thick mucus secretions noted in all the subsegments which were suctioned right away. Then the bronchoscope was wedged at right middle lobe and about 3 aliquots of 30 mL each were instilled and obtained 40 mL of bronchoalveolar lavage. No bleeding noted. The bronchoscope was wedged at left upper lobe and instilled 40 mL of normal saline instilled and obtained about 20 mL of return of fluid. While retracting noted a mucosal abrasion of left upper lobe subsegment where bronchoscope was wedged. There is no active bleeding noted. After making sure all subsegments are cleared and no active bleeding, bronchoscope was then removed and the procedure terminated. Estimated Blood Loss: 2 ml Specimens: Bronchoalveolar lavage was taken from right middle lobe and left upper lobe and sent for microbiology cultures, fungal work-up, PCP, cytology Complications:None; patient tolerated the procedure well. Disposition: Patient remains ill, on same 5 L oxygen and sent back to [facility] floor Patient tolerated the procedure well. Aston Weems MD Pulmonary critical Care Medicine [facility] Pre-op Diagnosis: nausea and vomiting Associated Problem List Diagnoses (1) Pneumonia: (2) COPD exacerbation: (3) Respiratory failure with hypoxia: Qualifiers: Chronicity: acute on chronic Qualified Code(s): J96.21 - Acute and chronic respiratory failure with hypoxia (4) High risk medication use: (5) Rheumatoid arthritis with rheumatoid factor 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 systems involvement:
--- NOTE | 2021-01-31 15:28 | ANE.PACU2 ---
Inpatient post-anesthesia follow up: Airway intact: Yes Vital signs: Temperature 98 F Pulse Rate [Monito r] 116 Pulse Rate 93 Respiratory Rate 28 Blood Pressure [Ri ght Arm] 108/70 Blood Pressure 118/60 Pulse Oximetry 92 Oxygen Delivery Me thod Nasal Cannula Oxygen Flow Rate 5 Fraction of Inspir ed Oxygen Hydration adequate: Yes Nausea and vomiting: No Pain level: 1 Mental status: Baseline
--- NOTE | 2021-01-31 16:29 | PC.NURSE ---
Vanc Restarted First dose of IV vanc was infusing for approximately 20-30 min prior to her bronchoscopy, and had to be stopped. Called pharmacsy once she returned to floor who recommended disposing of the remaining amount in bag, and will restart next dose at 1700.
[2021-01-31] MEDS: iohexol 350 mg/mL 100 mL Btl IV (16:40)
[2021-01-31] MEDS: heparin 5,000 unit/mL INJ 1 mL 5000 UNIT SUBCUT (17:04)
[2021-01-31] MEDS: ferrous gluconate 324 mg Tablet PO (17:58)
[2021-01-31] MEDS: sulfamethoxazole-trimeth DS 160-800 mg Tablet 1 TAB PO (17:58)
[2021-01-31 17:59] LABS: Bilirubin Urine Neg (Negative); Blood Urine Neg (Negative); Glucose Urine UA Norm (Normal); Ketones Urine Negative (Negative); Leukocyte Esterase Urine Trace (Negative); Nitrate Urine Negative (Negative); Protein Urine Neg (Negative); Specific Gravity, Urine 1.005 (1.005-1.030); Urine Appearance Clear (CLEAR); Urine Color Yellow (Yellow); Urobilinogen Urine Norm (Negative); pH Urine 7 (5-7)
[2021-01-31 18:04] LABS: Add Urine Culture? No; Bacteria Urine TRACE /hpf; RBC Urine 0-4 /hpf (0-2); Squamous Epithelial Cell Urine 0-4 /hpf (0-5); WBC Urine 0-4 /hpf (0-5)
[2021-01-31 19:16] LABS: Potassium, Radom Urine 27 mmol/L; Urine Random Chloride 38 mmol/L; Urine Random Sodium 37 mmol/L
[2021-01-31] MEDS: benzonatate 100 mg Capsule PO (21:27)
[2021-01-31] MEDS: citalopram 20 mg Tablet 10 MG PO (21:28)
[2021-01-31] MEDS: cyclobenzaprine 10 mg Tablet PO (21:30)
[2021-01-31] MEDS: duloxetine 60 mg Capsule PO (21:30)
[2021-02-01] VITALS (33 sets, daily range): BP systolic 98–135; BP diastolic 55–80; PULSE 72–102; RESP 17–24; TEMP 36.2–36.6; O2SAT 93–98
[2021-02-01] MEDS: ipratropium-albuterol 3 mL Neb INHALATION ×6 (00:23→20:02)
[2021-02-01] MEDS: heparin 5,000 unit/mL INJ 1 mL 5000 UNIT SUBCUT (01:30)
[2021-02-01] MEDS: azithromycin 500 MG in sodium chloride 0.9% 250 ML 250 MG IV (03:27)
[2021-02-01] MEDS: ALPRAZolam 0.25 mg Tablet PO ×3 (03:51→20:17)
[2021-02-01] MEDS: vancomycin 750 MG in sodium chloride 0.9% 250 ML 250 MG IV ×2 (04:32→17:41)
[2021-02-01 06:36] LABS: Basophils # 0.1 10^3/uL (0.0-0.1); Basophils % 0.6 %; Hematocrit 37.1 % (37.0-47.0); Lymphocytes # 0.5 10^3/uL (0.8-4.8); Lymphocytes % 3.9 %; Mean Corpuscular HGB Conc 29.6 g/dL (30.0-36.0); Mean Corpuscular Hemoglobin 30.7 pg (28.0-34.0); Mean Corpuscular Volume 103.6 fL (81-99); Mean Platelet Volume 9.8 fL (7.4-10.4); Monocytes # 0.4 10^3/uL (0.2-0.9); Monocytes % 3.5 %; Neutrophils % 91.4 %; Nucleated Red Blood Cells % 0 %; Platelet Count 244 10^3/cmm (130-400); Red Blood Count 3.58 10^6/uL (4.1-5.3); Red Cell Distribution Width 17.2 % (12.1-15.1); White Blood Count 12.6 10^3/uL (4.0-10.0)
[2021-02-01 06:50] LABS: Alanine Aminotransferase 14 U/L (0-33); Albumin Level 3.9 g/dL (3.5-5.2); Alkaline Phosphatase 142 IU/L (35-105); Anion Gap 15.6 (5-19); Aspartate Amino Transferase 44 U/L (0-32); Blood Urea Nitrogen 13 mg/dL (8-23); Calcium 9.4 mg/dL (8.5-10.5); Carbon Dioxide 26 mmol/L (22-29); Chloride 101 mmol/L (98-107); Globulin 3.2 g/dL (1.3-4.6); Glucose 99 mg/dL (65-115); Osmolality Calculated 286 mOsm/kg (285-295); Potassium 4.6 mmol/L (3.5-5.1); Sodium 138 mmol/L (136-145); Total Bilirubin 0.2 mg/dL (0.15-1.2); Total Protein 7.1 g/dL (6.6-8.7)
[2021-02-01 07:07] LABS: Estmated Average Glucose 74; Hemoglobin A1C 4.2 % (4.0-6.0)
[2021-02-01] MEDS: pantoprazole DR 40 mg Tablet PO (08:31)
[2021-02-01] MEDS: benzonatate 100 mg Capsule PO ×3 (08:31→20:17)
[2021-02-01] MEDS: ondansetron 2 mg/ML SDV 2 mL 4 MG IVP (08:31)
[2021-02-01] MEDS: metoprolol tartrate 25 mg Tablet PO ×2 (08:32→20:16)
[2021-02-01] MEDS: folic acid 1 mg Tablet PO (08:32)
[2021-02-01] MEDS: levETIRAcetam 500 mg Tablet PO ×2 (08:33→20:16)
[2021-02-01] MEDS: sulfamethoxazole-trimeth DS 160-800 mg Tablet 1 TAB PO ×2 (08:39→17:45)
--- NOTE | 2021-02-01 10:25 | PM.PN ---
Subjective Subjective: Interval history: Admitted overnight. H&P and labs noted. Records reviewed. On examination patient lying in bed on 5 L nasal cannula gets dyspneic on conversation. She states she has been having the symptoms going on for last few months and has been getting worse eventually. She has been on steroids and multiple course of antibiotics during this time. She denies any fevers but does complain of subjective feeling of fevers, denies hemoptysis complains of expectoration. Vitals/I&O/Wt Last Vital Signs Temp 97.5 F L 02/01/21 08:00 Pulse 93 02/01/21 08:00 Resp 17 02/01/21 08:00 BP 119/68 02/01/21 08:00 Pulse Ox 95 02/01/21 08:00 01/31/21 02/01/21 02/01/21 22:59 06:59 14:59 Intake Total 1100 / 1100 841.667 / 1941.667 98.333 / 98.333 Output Total 500 / 1150 800 / 1950 Balance 600 / -50 41.667 / -8.333 98.333 / 98.333 Weight last 48 hrs Weight 68.039 kg Physical Exam Narrative: EXAM NARRATIVE: General: In acute distress because of difficulty in breathing, AOx3 HEENT: PERRLA, pupils bilaterally equal and reactive Chest: Bronchial breath sounds all over the lung diego, good equal air entry bilaterally, diffuse crackles present all over the lung diego CVS: S1-S2 regular, no murmurs, no tachycardia, no gallops, no rubs Abdomen: Soft, nontender, no organomegaly, bowel sounds present Neuro: No focal deficits, no facial deformity, AO x3, power 5/5 in all limbs Data : 02/01/21 06:19 02/01/21 06:19 Other Labs: Laboratory Results WBC 12.6 10^3/uL (4.0-10.0) H 02/01/21 06:19 RBC 3.58 10^6/uL (4.1-5.3) L 02/01/21 06:19 Hgb 11.0 g/dL (11.5-15.3) L 02/01/21 06:19 Hct 37.1 % (37.0-47.0) 02/01/21 06:19 MCV 103.6 fL (81-99) H 02/01/21 06:19 MCH 30.7 pg (28.0-34.0) 02/01/21 06:19 MCHC 29.6 g/dL (30.0-36.0) L 02/01/21 06:19 RDW 17.2 % (12.1-15.1) H 02/01/21 06:19 Plt Count 244 10^3/cmm (130-400) 02/01/21 06:19 MPV 9.8 fL (7.4-10.4) 02/01/21 06:19 Neut % (Auto) 91.4 % 02/01/21 06:19 Lymph % (Auto) 3.9 % 02/01/21 06:19 [place] % (Auto) 3.5 % 02/01/21 06:19 Eos % (Auto) 0.0 % 02/01/21 06:19 Baso % (Auto) 0.6 % 02/01/21 06:19 Neut # (Auto) 11.50 10^3/uL (1.8-7.7) H 02/01/21 06:19 Lymph # (Auto) 0.5 10^3/uL (0.8-4.8) L 02/01/21 06:19 [place] # (Auto) 0.4 10^3/uL (0.2-0.9) 02/01/21 06:19 Eos # (Auto) 0.0 10^3/uL (0.0-0.8) 02/01/21 06:19 Baso # (Auto) 0.1 10^3/uL (0.0-0.1) 02/01/21 06:19 Nucleated RBC % (auto) 0 % 02/01/21 06:19 Nucleated RBCs # 0.0 /100WBC 02/01/21 06:19 PT 13.20 SECONDS (12.1-14.9) 02/01/21 12:25 INR 0.97 (0.8-1.2) 02/01/21 12:25 APTT 26.8 SECONDS (23.9-36.7) 02/01/21 12:25 Specimen Type Arterial 01/31/21 03:41 Sample Site Brachial, right 01/31/21 03:41 ABG pH 7.38 (7.35-7.45) 01/31/21 03:41 ABG pCO2 50.8 mmHg (35-45) H 01/31/21 03:41 ABG pO2 70.6 mmHg (80.0-100.0) L 01/31/21 03:41 ABG HCO3 29.8 mmol/L (22-26) H 01/31/21 03:41 ABG Base Excess 3.7 mmol/L (-2.0-2.0) H 01/31/21 03:41 Reji Test Pos 01/31/21 03:41 Hematocrit 37.2 % (37-47) 01/31/21 03:41 Hgb O2 Saturation 89.9 % (95-100) L 01/31/21 03:41 Carboxyhemoglobin < 0.0 %THgb (0.4-20.1) L 01/31/21 03:41 Methemoglobin 1.5 % (0.4-1.5) 01/31/21 03:41 Total Hemoglobin 12.1 g/dL (12-16) 01/31/21 03:41 O2 Delivery Device Nc 01/31/21 03:41 O2 Liters/Min 5.0 % 01/31/21 03:[address] Clerk ID Francesco 01/31/21 03:41 Sodium 138 mmol/L (136-145) 02/01/21 06:19 Potassium 4.6 mmol/L (3.5-5.1) 02/01/21 06:19 Chloride 101 mmol/L (98-107) 02/01/21 06:19 Carbon Dioxide 26 mmol/L (22-29) 02/01/21 06:19 Anion Gap 15.6 (5-19) 02/01/21 06:19 BUN 13 mg/dL (8-23) 02/01/21 06:19 Creatinine 0.6 mg/dL (0.5-0.9) 02/01/21 06:19 GFR Calculation Not Reportable 02/01/21 06:19 Glucose 99 mg/dL (65-115) 02/01/21 06:19 Estimat Average Glucose 74 02/01/21 06:19 Hemoglobin A1c 4.2 % (4.0-6.0) 02/01/21 06:19 Calculated Osmolality 286 mOsm/kg (285-295) 02/01/21 06:19 Calcium 9.4 mg/dL (8.5-10.5) 02/01/21 06:19 Iron 34 ug/dL (37-145) L 01/31/21 03:40 TIBC 238 mcg/dl 01/31/21 03:40 % Saturation 14.2 % (20-50) L 01/31/21 03:40 Unsat Iron Binding 204 ug/dL (112-347) 01/31/21 03:40 Total Bilirubin 0.2 mg/dL (0.15-1.2) 02/01/21 06:19 AST 44 U/L (0-32) H 02/01/21 06:19 ALT 14 U/L (0-33) 02/01/21 06:19 Alkaline Phosphatase 142 IU/L (35-105) H 02/01/21 06:19 Lactate Dehydrogenase 544 U/L (135-214) H 01/31/21 03:40 NT-Pro-B Natriuret Pep 264 pg/mL (0-125) H 01/31/21 03:40 Total Protein 7.1 g/dL (6.6-8.7) 02/01/21 06:19 Albumin 3.9 g/dL (3.5-5.2) 02/01/21 06:19 Globulin 3.2 g/dL (1.3-4.6) 02/01/21 06:19 Procalcitonin 0.07 ng/mL (0-0.5) 01/31/21 03:40 TSH 3.73 uIU/mL (0.27-4.20) 01/31/21 03:40 Urine Color Yellow (Yellow) 01/31/21 17:30 Urine Appearance Clear (CLEAR) 01/31/21 17:30 Urine pH 7 (5-7) 01/31/21 17:30 Ur Specific [place] 1.005 (1.005-1.030) 01/31/21 17:30 Urine Protein Neg (Negative) 01/31/21 17:30 Urine Glucose (UA) Norm (Normal) 01/31/21 17:30 Urine Ketones Negative (Negative) 01/31/21 17:30 Urine Blood Neg (Negative) 01/31/21 17:30 Urine Nitrate Negative (Negative) 01/31/21 17:30 Urine Bilirubin Neg (Negative) 01/31/21 17:30 Urine Urobilinogen Norm mg/dL (Negative) 01/31/21 17:30 Ur Leukocyte Esterase Trace (Negative) H 01/31/21 17:30 Urine RBC 0-4 /hpf (0-2) H 01/31/21 17:30 Urine WBC 0-4 /hpf (0-5) H 01/31/21 17:30 Ur Squamous Epith Cells 0-4 /hpf (0-5) H 01/31/21 17:30 Amorphous Sediment Not Reportable 01/31/21 17:30 Urine Bacteria Trace /hpf (NONE) 01/31/21 17:30 Ur Random Sodium 37 mmol/L 01/31/21 17:30 Ur Random Potassium 27 mmol/L 01/31/21 17:30 Ur Random Chloride 38 mmol/L 01/31/21 17:30 Influenza Type A Ag Negative (Negative) 01/31/21 11:20 Influenza Type B Ag Negative (Negative) 01/31/21 11:20 SARS-CoV-2 Ag (Rapid) Negative (Negative) 01/31/21 03:20 Beta-(1,3)-D-Glucan Cancelled 01/31/21 14:53 B-(1,3)-D-Glucan Intrp Cancelled 01/31/21 14:53 Impressions Chest X-Ray 01/31/21 03:09 IMPRESSION: Pulmonary edema versus COVID-19. Stable nodularity of the pleura in the left hemithorax. Chest CTA 01/31/21 13:00 IMPRESSION: 1. No evidence for pulmonary embolus. 2. Circumferential nodular massing along the left parietal pleura and visceral pleural surfaces of the lung. 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 Tissue sampling is recommended. 3. 8 mm left lower lobe and 3 mm right upper lobe nodules could represent metastasis. 4. Mildly enlarged mediastinal and left hilar lymph nodes are suspicious for metastatic disease. 5. Patchy ground-glass opacities in both lungs and right lower lobe consolidation, most likely pneumonia. 6. Severe emphysema. 7. Multiple chronic thoracic compression fractures. Radiation Dose CTDIVOL = (mGy): DLP = 548.98 (mGy-cm) ADDENDUM: 01/31/21 3312 THIS REPORT CONTAINS FINDINGS THAT MAY BE CRITICAL TO PATIENT CARE. The findings were verbally communicated via telephone conference with JERRY JOVEL at 6:15 PM CDT on 01/31/2021. The findings were acknowledged and understood. Radiation Dose CTDIVOL = (mGy): DLP = 548.98 (mGy-cm) Micro: Microbiology 01/31/21 11:20 MRSA Culture - Final Nose 01/31/21 13:01 Gram Stain - Final Sputum - Expectorated Sputum Sputum Culture - Preliminary 01/31/21 17:30 Bacterial Antigens - Final Urine Kidney 01/31/21 17:30 Legionella Urinary Antigen - Final Urine,Voided 01/31/21 06:19 Blood Culture - Preliminary Blood NEGATIVE TO DATE 01/31/21 06:10 Blood Culture - Preliminary Blood NEGATIVE TO DATE 01/31/21 14:53 Gram Stain - Final Lung Left Lower Lobe A&P Assessment and plan (1) ARDS (adult respiratory distress syndrome): Status: Acute (2) Respiratory failure with hypoxia: Status: Acute Qualifiers: Chronicity: acute on chronic Qualified Code(s): J96.21 - Acute and chronic respiratory failure with hypoxia (3) Emphysema of lung: Status: Acute Qualifiers: Emphysema type: unspecified Qualified Code(s): J43.9 - Emphysema, unspecified (4) COPD (chronic obstructive pulmonary disease): Status: Acute Qualifiers: COPD type: unspecified COPD Qualified Code(s): J44.9 - Chronic obstructive pulmonary disease, unspecified (5) Pleural effusion: Status: Acute (6) Rheumatoid arthritis with rheumatoid factor 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 systems involvement: Status: Chronic (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 No further CT study cannot rule out pleural-based infectious source versus malignancy. Appreciate pulmonology recommendations. LDH elevated Gram stain growing gram-positive cocci in clusters and rods. For now continue with vancomycin and imipenem along with oral Bactrim to cover for severe committee acquired pneumonia and possible P MARLENE. Other studies including Aspergillus antigen, fungi tell, beta D glucan, QuantiFERON, fungal culture both from sputum and BAL awaited. We will plan for CT-guided pleural biopsy and repeat all the cultures and pathology. Most likely patient would require VATS versus thoracotomy. As per pulmonology recommendations VATS will be better for patient given her poor baseline pulmonary function. COVID-19 rapid antigen negative in the ER yesterday. Pulmonary toilet with incentive spirometry and flutter valve. Continue with DuoNebs every 4 hours, budesonide twice daily. With IV Solu-Medrol 40 mg every 12 hours. Oxygen supplementation keeping saturation over 90%. Stop leflunomide, sulfasalazine now. Continue other chronic medication including Flexeril, Keppra, Protonix, duloxetine. Start patient on Xanax 0.25 every 8 hours for anxiety. CODE STATUS: Discussed with patient in detail. We discussed that unfortunately given her severe COPD if patient goes on a ventilator is quite possible that patient will be ventilator dependent versus high risk extubation. Patient states she would not want to be intubated but is okay with chest compressions if needed. She is okay with intubation if needed for bronchoscopy. Cardiac diet. Heparin 5000 every 12 hourly. Attestations Medical Necessity Statement*: Patient requires further hospitalization for management of ARDS because of atypical pneumonia versus pleural-based malignancy in setting of severe COPD and immunocompromise status from rheumatoid arthritis medications. Time Spent in Patient Care: Greater than 35 minutes (>than 50% of time spent in counselling and/or direct pt care on unit). Coding Level of Care Code Acute [employer] for [employer]i Valerio Diagnoses ARDS (adult respiratory distress syndrome) J80 Respiratory failure with hypoxia J96.21 Chronicity: acute on chronic Emphysema of lung J43.9 Emphysema type: unspecified COPD (chronic obstructive pulmonary disease) J44.9 COPD type: unspecified COPD Pleural effusion J90 Rheumatoid arthritis with rheumatoid factor 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 systems involvement M05.79 Immunodeficiency secondary to chemotherapy Z79.899
--- NOTE | 2021-02-01 11:24 | CT_ITS ---
WS: [id number] LUNG BIOPSY CLINICAL INFORMATION: possible mesothelioma/ lung/ pleura COMPARISON: None. DLP: 529.98 mGy.cm TECHNIQUE: The procedure including risk, benefits, and complications were discussed with the patient who agreed to proceed. Using sterile technique, the patient was prepped and draped in the usual steri le fashion. Patient was positioned prone and CT images were obtained through lung bases. Peripheral n odularity in the left lower lobe was selected.After 1% lidocaine, using fluoroscopic guidance, a 17-g auge coaxial needle was advanced into the left lung mass. Approximately 7/8 samples were obtained. No pneumothorax. No immediate complications. CT/CT biopsy lung [id number] IMPRESSION: 1. Multiple 18-gauge core samples were obtained of the left lung mass. No imme diate complications. 2. 30 minute chest x-ray demonstrates no pneumothorax.
[2021-02-01] MEDS: LORazepam 0.5 mg Tablet 0.25 MG PO (11:40)
[2021-02-01] MEDS: oxyCODONE-APAP 5-325 mg Tablet 1 TAB PO ×2 (11:41→20:17)
[2021-02-01 12:52] LABS: INR 0.97 (0.8-1.2)
[2021-02-01 12:53] LABS: Partial Thromboplastin Time 26.8 SECONDS (23.9-36.7)
[2021-02-01] MEDS: sodium chloride 0.9% 1,000 ML 30 ML IV (13:45)
[2021-02-01] MEDS: midazolam 1 mg/mL INJ 2 mL 2 MG IVP (14:02)
[2021-02-01] MEDS: fentaNYL 50 mcg/mL INJ 2mL 25 MCG IVP (14:03)
--- NOTE | 2021-02-01 14:06 | SUR.OPER ---
1405 CT guided biopsy of left lung per Dr. Randolph. Pt placed in prone position. O2 at 5 L via nasal cannula in place. VSS. NS infusing into right AC without difficulty. Versed 2 mg and Fentanyl 25 mg IVP given for sedation as ordered.
--- NOTE | 2021-02-01 14:19 | SUR.OPER ---
1419 CT biopsy of lung complete. Total of 2 mg Versed IVP and 25 mcg of Fentanyl given total. 8 mL 1% Lidocaine given per Dr. Randolph during procedure. VSS. Pt denies pain. Report called to MARLA Garcia.
--- NOTE | 2021-02-01 14:43 | SUR.PHASEI ---
Pt recovered in CT. VSS. A&O x 3. Pt to floor via stretcher. Report given to MARLA Garcia. Pt to have portable chest x-ray at 1500.
--- NOTE | 2021-02-01 14:55 | XR_ITS ---
WS: [id number] Exam: XR chest 1V portable [id number] Date/Time of Exam: 02/01/2021 2:56 PM Reason For Exam: POST LUNG BIOPSY Comparison 01/31/2021. Extensive lobulated pleural thickening seen along the superior and lateral left pleural cavity. Diffu se airspace and interstitial opacities noted throughout the left lung as well as the mid and lower ri ght lung. Heart size is normal. Soft tissue lobulation along the left heart border. No pleural effusi on. No pneumothorax is seen. A right-sided CSF catheter is noted. Regional bony structures are intact . The mediastinum is not widened. XR/XR chest 1V portable [id number] IMPRESSION: 1. Extensive lobulated pleural thickening along the superior and lateral left p leural cavity may indicate pleural malignancy such as mesothelioma. There is al so soft tissue lobulation along the left heart border that may represent tumor involvement. 2. Extensive airspace and interstitial infiltrates throughout the left lung as well as the mid and lower right lung. 3. No pneumothorax identified.
[2021-02-01 17:27] LABS: Vancomycin Trough 8.9 ug/mL (10-15)
[2021-02-01] MEDS: ferrous gluconate 324 mg Tablet PO (17:45)
[2021-02-01] MEDS: fluconazole 100 mg Tablet PO (17:45)
[2021-02-01] MEDS: citalopram 20 mg Tablet 10 MG PO (20:17)
[2021-02-01] MEDS: cyclobenzaprine 10 mg Tablet PO (20:17)
[2021-02-01] MEDS: duloxetine 60 mg Capsule PO (20:17)
--- NOTE | 2021-02-01 20:18 | PC.RESP ---
Pulmonary Rehab information sent to patient.
--- NOTE | 2021-02-01 23:05 | PM.PN ---
Subjective Subjective: Interval history: seen pt at bedside on 02/01/21 830 am still on 5L nasal cannula and wheezing significantly also complained of left pleuritic chest pain Plan is to obtain CT guided biopsy of pleural lesions labs and imaging reviewed and pertinent findings incorporated in the assessment and plan Medications: Reviewed: Yes Vitals/I&O/Wt Last Vital Signs Temp 97.9 F 02/01/21 20:15 Pulse 102 H 02/01/21 20:15 Resp 23 H 02/01/21 20:17 BP 113/71 02/01/21 20:15 Pulse Ox 94 02/01/21 20:15 02/01/21 02/01/21 02/02/21 14:59 22:59 06:59 Intake Total 488.333 / 488.333 590 / 1078.333 Output Total 1100 / 1100 Balance -611.667 / -611.667 590 / -21.667 Weight last 48 hrs Weight 150 lb Physical Exam Narrative: EXAM NARRATIVE: General: alert, in moderate respiratory distress on 5 L nasal cannula Pain: 0/10 HEENT: conj clear, EOMI, PERRL, mmm, Neck: supple, no meningismus Heme: no cervical LAP Pulmonary: Bilateral air entry present, diffuse end expiratory wheeze bilaterally Cardiovascular: rrr, nl s1s2, no mrg Abdomen: soft, nt, nd, no r/g, bs+ Extremities: pulses +, no edema, no c/c : no CVA tenderness Skin: intact, no rash MSK: no back or neck pain Neurologic: grossly intact Data : 02/01/21 06:19 02/01/21 06:19 Other Labs: Laboratory Results WBC 12.6 10^3/uL (4.0-10.0) H 02/01/21 06:19 RBC 3.58 10^6/uL (4.1-5.3) L 02/01/21 06:19 Hgb 11.0 g/dL (11.5-15.3) L 02/01/21 06:19 Hct 37.1 % (37.0-47.0) 02/01/21 06:19 MCV 103.6 fL (81-99) H 02/01/21 06:19 MCH 30.7 pg (28.0-34.0) 02/01/21 06:19 MCHC 29.6 g/dL (30.0-36.0) L 02/01/21 06:19 RDW 17.2 % (12.1-15.1) H 02/01/21 06:19 Plt Count 244 10^3/cmm (130-400) 02/01/21 06:19 MPV 9.8 fL (7.4-10.4) 02/01/21 06:19 Neut % (Auto) 91.4 % 02/01/21 06:19 Lymph % (Auto) 3.9 % 02/01/21 06:19 [place] % (Auto) 3.5 % 02/01/21 06:19 Eos % (Auto) 0.0 % 02/01/21 06:19 Baso % (Auto) 0.6 % 02/01/21 06:19 Neut # (Auto) 11.50 10^3/uL (1.8-7.7) H 02/01/21 06:19 Lymph # (Auto) 0.5 10^3/uL (0.8-4.8) L 02/01/21 06:19 [place] # (Auto) 0.4 10^3/uL (0.2-0.9) 02/01/21 06:19 Eos # (Auto) 0.0 10^3/uL (0.0-0.8) 02/01/21 06:19 Baso # (Auto) 0.1 10^3/uL (0.0-0.1) 02/01/21 06:19 Nucleated RBC % (auto) 0 % 02/01/21 06: Nucleated RBCs # 0.0 /100WBC 02/01/21 06:19 PT 13.20 SECONDS (12.1-14.9) 02/01/21 12:25 INR 0.97 (0.8-1.2) 02/01/21 12:25 APTT 26.8 SECONDS (23.9-36.7) 02/01/21 12:25 Specimen Type Arterial 01/31/21 03:41 Sample Site Brachial, right 01/31/21 03:41 ABG pH 7.38 (7.35-7.45) 01/31/21 03:41 ABG pCO2 50.8 mmHg (35-45) H 01/31/21 03:41 ABG pO2 70.6 mmHg (80.0-100.0) L 01/31/21 03:41 ABG HCO3 29.8 mmol/L (22-26) H 01/31/21 03:41 ABG Base Excess 3.7 mmol/L (-2.0-2.0) H 01/31/21 03:41 Reji Test Pos 01/31/21 03:41 Hematocrit 37.2 % (37-47) 01/31/21 03:41 Hgb O2 Saturation 89.9 % (95-100) L 01/31/21 03:41 Carboxyhemoglobin < 0.0 %THgb (0.4-20.1) L 01/31/21 03:41 Methemoglobin 1.5 % (0.4-1.5) 01/31/21 03:41 Total Hemoglobin 12.1 g/dL (12-16) 01/31/21 03:41 O2 Delivery Device Nc 01/31/21 03:41 O2 Liters/Min 5.0 % 01/31/21 03:41 Airport Guide ID Francesco 01/31/21 03:41 Sodium 138 mmol/L (136-145) 02/01/21 06:19 Potassium 4.6 mmol/L (3.5-5.1) 02/01/21 06:19 Chloride 101 mmol/L (98-107) 02/01/21 06:19 Carbon Dioxide 26 mmol/L (22-29) 02/01/21 06:19 Anion Gap 15.6 (5-19) 02/01/21 06:19 BUN 13 mg/dL (8-23) 02/01/21 06:19 Creatinine 0.6 mg/dL (0.5-0.9) 02/01/21 06:19 GFR Calculation Not Reportable 02/01/21 06:19 Glucose 99 mg/dL (65-115) 02/01/21 06:19 Estimat Average Glucose 74 02/01/21 06:19 Hemoglobin A1c 4.2 % (4.0-6.0) 02/01/21 06:19 Calculated Osmolality 286 mOsm/kg (285-295) 02/01/21 06:19 Calcium 9.4 mg/dL (8.5-10.5) 02/01/21 06:19 Iron 34 ug/dL (37-145) L 01/31/21 03:40 TIBC 238 mcg/dl 01/31/21 03:40 % Saturation 14.2 % (20-50) L 01/31/21 03:40 Unsat Iron Binding 204 ug/dL (112-347) 01/31/21 03:40 Total Bilirubin 0.2 mg/dL (0.15-1.2) 02/01/21 06:19 AST 44 U/L (0-32) H 02/01/21 06:19 ALT 14 U/L (0-33) 02/01/21 06:19 Alkaline Phosphatase 142 IU/L (35-105) H 02/01/21 06:19 Lactate Dehydrogenase 544 U/L (135-214) H 01/31/21 03:40 NT-Pro-B Natriuret Pep 264 pg/mL (0-125) H 01/31/21 03:40 Total Protein 7.1 g/dL (6.6-8.7) 02/01/21 06:19 Albumin 3.9 g/dL (3.5-5.2) 02/01/21 06:19 Globulin 3.2 g/dL (1.3-4.6) 02/01/21 06:19 Procalcitonin 0.07 ng/mL (0-0.5) 01/31/21 03:40 TSH 3.73 uIU/mL (0.27-4.20) 01/31/21 03:40 Urine Color Yellow (Yellow) 01/31/21 17:30 Urine Appearance Clear (CLEAR) 01/31/21 17:30 Urine pH 7 (5-7) 01/31/21 17:30 Ur Specific [place] 1.005 (1.005-1.030) 01/31/21 17:30 Urine Protein Neg (Negative) 01/31/21 17:30 Urine Glucose (UA) Norm (Normal) 01/31/21 17:30 Urine Ketones Negative (Negative) 01/31/21 17:30 Urine Blood Neg (Negative) 01/31/21 17:30 Urine Nitrate Negative (Negative) 01/31/21 17:30 Urine Bilirubin Neg (Negative) 01/31/21 17:30 Urine Urobilinogen Norm mg/dL (Negative) 01/31/21 17:30 Ur Leukocyte Esterase Trace (Negative) H 01/31/21 17:30 Urine RBC 0-4 /hpf (0-2) H 01/31/21 17:30 Urine WBC 0-4 /hpf (0-5) H 01/31/21 17:30 Ur Squamous Epith Cells 0-4 /hpf (0-5) H 01/31/21 17:30 Amorphous Sediment Not Reportable 01/31/21 17:30 Urine Bacteria Trace /hpf (NONE) 01/31/21 17:30 Ur Random Sodium 37 mmol/L 01/31/21 17:30 Ur Random Potassium 27 mmol/L 01/31/21 17:30 Ur Random Chloride 38 mmol/L 01/31/21 17:30 Vancomycin Trough 8.9 ug/mL (10-15) L 02/01/21 16:01 Influenza Type A Ag Negative (Negative) 01/31/21 11:20 Influenza Type B Ag Negative (Negative) 01/31/21 11:20 SARS-CoV-2 Ag (Rapid) Negative (Negative) 01/31/21 03:20 Beta-(1,3)-D-Glucan Cancelled 01/31/21 14:53 B-(1,3)-D-Glucan Intrp Cancelled 01/31/21 14:53 Impressions Chest CTA 01/31/21 13:00 IMPRESSION: 1. No evidence for pulmonary embolus. 2. Circumferential nodular massing along the left parietal pleura and visceral pleural surfaces of the lung. 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 Tissue sampling is recommended. 3. 8 mm left lower lobe and 3 mm right upper lobe nodules could represent metastasis. 4. Mildly enlarged mediastinal and left hilar lymph nodes are suspicious for metastatic disease. 5. Patchy ground-glass opacities in both lungs and right lower lobe consolidation, most likely pneumonia. 6. Severe emphysema. 7. Multiple chronic thoracic compression fractures. Radiation Dose CTDIVOL = (mGy): DLP = 548.98 (mGy-cm) ADDENDUM: 01/31/21 181 THIS REPORT CONTAINS FINDINGS THAT MAY BE CRITICAL TO PATIENT CARE. The findings were verbally communicated via telephone conference with JERRY JOVEL at 6:15 PM CDT on 01/31/2021. The findings were acknowledged and understood. Radiation Dose CTDIVOL = (mGy): DLP = 548.98 (mGy-cm) Lung Biopsy CT 02/01/21 11:24 IMPRESSION: 1. Multiple 18-gauge core samples were obtained of the left lung mass. No immediate complications. 2. 30 minute chest x-ray demonstrates no pneumothorax. Chest X-Ray 02/01/21 14:55 IMPRESSION: 1. Extensive lobulated pleural thickening along the superior and lateral left pleural cavity may indicate pleural malignancy such as mesothelioma. There is also soft tissue lobulation along the left heart border that may represent tumor involvement. 2. Extensive airspace and interstitial infiltrates throughout the left lung as well as the mid and lower right lung. 3. No pneumothorax identified. Micro: Microbiology 02/01/21 14:16 Gram Stain - Final Lung - Biopsy 01/31/21 14:53 Fungal Smear - Preliminary Sputum - Endotracheal Wash 01/31/21 13:01 Gram Stain - Final Sputum - Expectorated Sputum Sputum Culture - Preliminary Yeast 01/31/21 14:53 Gram Stain - Final Lung Left Lower Lobe Bronchoalveolar Lavage Culture - Preliminary Yeast 01/31/21 11:20 MRSA Culture - Final Nose 01/31/21 17:30 Bacterial Antigens - Final Urine Kidney 01/31/21 17:30 Legionella Urinary Antigen - Final Urine,Voided 01/31/21 06:19 Blood Culture - Preliminary Blood NEGATIVE TO DATE 01/31/21 06:10 Blood Culture - Preliminary Blood NEGATIVE TO DATE A&P Assessment and plan (1) ARDS (adult respiratory distress syndrome): Status: Acute (2) Respiratory failure with hypoxia: Status: Acute Qualifiers: Chronicity: acute on chronic Qualified Code(s): J96.21 - Acute and chronic respiratory failure with hypoxia (3) Emphysema of lung: Status: Acute Qualifiers: Emphysema type: unspecified Qualified Code(s): J43.9 - Emphysema, unspecified (4) High risk medication use: Status: Acute (5) Rheumatoid arthritis with rheumatoid factor 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 systems involvement: Status: Chronic (6) Loculated pleural effusion: Status: Acute (7) COPD exacerbation: Status: Acute #Respiratory failure with hypoxia and hypercapnia likely secondary to superimposing bacterial pneumonia versus PCP pneumonia in patient with underlying COPD and rheumatoid arthritis on leflunomide and Actemra #RA - being treated with Tocilizumab, leflunomide, sulfasalazine #COPD-GROUP D-on Trelegy as outpatient #Loculated left-sided pleural effusion -Currently requiring 5 L nasal cannula-baseline 2 L nasal cannula -Chest x-ray at admission 01/31/2021: Showed increased pulmonary opacities bilaterally with increase in interstitial markings. Stable nodularity of the pleura in the left hemithorax. -ABG on 5 L nasal cannula 7.3 8/50/70/29/90% -On iv steroids based on clinical response -DuoNeb nebulization every 6 hour and Pulmicort 0.5 mg twice daily nebulization -Bronchscopy 01/31/21: Copious mucus secretions on both right lung and left lung were suctioned right away and BAL taken from right middle lobe and left upper lobe and sent for various studies including bacterial cultures, AFB, fungal cultures, PCP, galactomannan, Aspergillus, cytology -broad-spectrum antibiotics with vancomycin and imipenem as patient is allergic to penicillin. -Follow-up blood cultures. Continue with azithromycin for atypical coverage -Patient was on immunosuppressive medications so we will start treatment for PCP Bactrim DS twice daily. recommended to Hold tocilizumab, leflunomide, sulfasalazine. Will monitor renal functions. - COVID-19 rapid antigen negative in the ER yesterday. - Pulmonary toilet with incentive spirometry and flutter valve. -Continue clinical monitoring and respiratory status -Chest x-ray did not show any worsening of loculated left pleural effusions. -CT chest 01/31/21:Circumferential nodular massing along the left parietal pleura and visceral pleural surfaces of the lung. 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 Tissue sampling is recommended. 3. 8 mm left lower lobe and 3 mm right upper lobe nodules could represent metastasis. Mildly enlarged mediastinal and left hilar lymph nodes are suspicious for metastatic disease. - Patient is scheduled to get CT guided biopsy of the pleural lesions today - if lesions are positive for malignancy she might need PET /CT for further staging; - if lesions are infectious loculations - prefer VATS intervention than thoracotomy as pt is poor surgical candidate due to her underlying severe emphysema and Interstitial lung disease. Medical condition, plan of care everything explained in detail to patient and her . They verbalized understanding and agreed with the plan. Recommendations conveyed to hospitalist covering the patient Attestations Medical Necessity Statement*: Anticipate over 2 midnights stay in hospital for evaluation and treatment Time Spent in Patient Care: Greater than 35 minutes (>than 50% of time spent in counselling and/or direct pt care on unit). Critical Care Time: Critical Care Time (min): 45 Coding Level of Care Code Acute Core [employer]arch[employer] for Chg Fwd Diagnoses ARDS (adult respiratory distress syndrome) J80 Respiratory failure with hypoxia J96.21 Chronicity: acute on chronic Emphysema of lung J43.9 Emphysema type: unspecified High risk medication use Z79.899 Rheumatoid arthritis with rheumatoid factor 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
[2021-02-02] VITALS (12 sets, daily range): BP systolic 110–119; BP diastolic 55–82; PULSE 77–94; RESP 16–22; TEMP 36.3–36.5; O2SAT 93–96
[2021-02-02] MEDS: ipratropium-albuterol 3 mL Neb INHALATION ×4 (00:59→12:29)
[2021-02-02] MEDS: vancomycin 1,000 MG in sodium chloride 0.9% 250 ML 250 MG IV (05:37)
[2021-02-02] MEDS: azithromycin 500 MG in sodium chloride 0.9% 250 ML 250 MG IV (06:33)
[2021-02-02 07:20] LABS: Basophils % 0.6 %; Eosinophils % 0.2 %; Hematocrit 34.4 % (37.0-47.0); Hemoglobin 10.3 g/dL (11.5-15.3); Lymphocytes # 0.7 10^3/uL (0.8-4.8); Lymphocytes % 10.1 %; Mean Corpuscular HGB Conc 29.9 g/dL (30.0-36.0); Mean Corpuscular Volume 103.6 fL (81-99); Mean Platelet Volume 9.9 fL (7.4-10.4); Monocytes # 0.4 10^3/uL (0.2-0.9); Monocytes % 5.4 %; Neutrophils # 5.53 10^3/uL (1.8-7.7); Neutrophils % 83.1 %; Nucleated Red Blood Cells % 0 %; Platelet Count 236 10^3/cmm (130-400); Red Blood Count 3.32 10^6/uL (4.1-5.3); Red Cell Distribution Width 17.4 % (12.1-15.1); White Blood Count 6.7 10^3/uL (4.0-10.0)
--- NOTE | 2021-02-02 07:25 | PC.NURSE ---
Report received. Pt resting in bed. C/O pain to IV site. No redness noted, flushes well. IV infusion rate decreased to 175ml/h. No other issues noted. Will monitor.
[2021-02-02 07:49] LABS: Alanine Aminotransferase 14 U/L (0-33); Albumin Level 3.8 g/dL (3.5-5.2); Alkaline Phosphatase 114 IU/L (35-105); Anion Gap 12.4 (5-19); Aspartate Amino Transferase 38 U/L (0-32); Blood Urea Nitrogen 15 mg/dL (8-23); Carbon Dioxide 31 mmol/L (22-29); Chloride 101 mmol/L (98-107); Globulin 2.6 g/dL (1.3-4.6); Glucose 98 mg/dL (65-115); Osmolality Calculated 291 mOsm/kg (285-295); Potassium 4.4 mmol/L (3.5-5.1); Sodium 140 mmol/L (136-145); Total Bilirubin 0.2 mg/dL (0.15-1.2); Total Protein 6.4 g/dL (6.6-8.7)
[2021-02-02] MEDS: benzonatate 100 mg Capsule PO ×2 (08:46→14:26)
[2021-02-02] MEDS: fluconazole 100 mg Tablet PO (08:46)
[2021-02-02] MEDS: pantoprazole DR 40 mg Tablet PO (08:46)
[2021-02-02] MEDS: metoprolol tartrate 25 mg Tablet PO (08:46)
[2021-02-02] MEDS: levETIRAcetam 500 mg Tablet PO (08:47)
[2021-02-02] MEDS: ferrous gluconate 324 mg Tablet PO (08:47)
[2021-02-02] MEDS: folic acid 1 mg Tablet PO (08:47)
[2021-02-02] MEDS: sulfamethoxazole-trimeth DS 160-800 mg Tablet 1 TAB PO (08:47)
[2021-02-02] MEDS: ALPRAZolam 0.5 mg Tablet 0.25 MG PO ×2 (09:41→14:26)
--- NOTE | 2021-02-02 11:56 | PM.TDS ---
Transfer Summary Providers Date of Admission: 01/31/21 04:19 Date of Discharge: 02/02/21 Attending Provider at Admission: Rajwinder Mario Attending Provider at Transfer: Al Ruvalcaba MD Consults: Pulmonology: Dr. Pappas Primary Care Provider: Cornel Hu DO Anticipated Date of Transfer: Anticipated date of transfer: 02/02/21 Receiving Facility & Provider: Receiving Provider: [Dr. 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 She was treated for pneumonia twice (October 2020 & november 2020). Chest x-ray in November 2019 showed? Left lower lobe infiltrate with pleural thickening. CT chest from December 18, 2020 showed a loculated left-sided pleural effusion, bilateral lower lobe infiltrates with paraseptal emphysema. During her clinic visit with Dr. Carmona on 12/26/2019 she denied any fever, night sweats, chills complained of left-sided pleuritic chest pain. Again on 01/23/21 she saw her PCP complaining of increasing left pleuritic chest pain and fever with chills. She was started on Levaquin 500 mg once daily for 7 days and. P.o. prednisone and was referred to see me in clinic on 01/24/[address] Carmona is out of office. On the day bedside ultrasound showed very minimal left pleural effusion which was difficult to tap. Recommended to continue Levaquin and prednisone started by PCP and to hold off Actemra and leflunomide at that point of time. Patient presented to emergency room yesterday with shortness of breath and has to increase her oxygen to 5 L nasal cannula. She denied fevers but complained of subjective fevers and worsening shortness of breath. She was admitted to [facility] floor for acute hypoxic and hypercapnic respiratory failure secondary to COPD exacerbation with possible superimposed multifocal pneumonia. Because of recurrent pneumonias, chest imaging there was a concern for atypical/fungal pneumonia because of immunocompromise status. Pulmonology was consulted. Various labs including Fungitell, galactomannan, Aspergillus antigen, LDH were sent out. Patient underwent bronchoscopy for a broad for bronchoalveolar lavage on January 31. Patient tolerated the procedure well. Postprocedure patient had CT chest which showed circumferential loculated thickening of left pleura including the visceral and parietal pleura. Changes are concerning for a possible infectious source versus mesothelioma. Patient underwent left lung/pleural biopsy on February 01. She tolerated the procedure well. Various cultures, including fungal culture, bacterial culture, AFB cultures from sputum, bronchial lavage and left lung biopsy was sent out. Given the extensive disease patient was advised for VATS intervention rather than thoracotomy because patient was deemed a poor surgical candidate due to underlying severe emphysema and interstitial lung disease.Sputum culture from bronchoalveolar lavage for now growing staph species, yeast and gram-positive rods. Because of the above transfer was sought to a higher center where VATS is available. Patient has been accepted at [facility] for further management. Patient hospitalization was otherwise unremarkable. She is being transferred in hemodynamically stable condition. Physical Exam Narrative: EXAM NARRATIVE: General: No acute distress, AOx3 HEENT: PERRLA, pupils bilaterally equal and reactive Chest: Bronchial breath sounds all over the lung diego, good equal air entry bilaterally, diffuse crackles present all over the lung diego CVS: S1-S2 regular, no murmurs, no tachycardia, no gallops, no rubs Abdomen: Soft, nontender, no organomegaly, bowel sounds present Neuro: No focal deficits, no facial deformity, AO x3, power 5/5 in all limbs TS Data Data Completed and Pending: Completed Studies During Hospitalization Category Date Time Status CT angio chest PE protcl 19677 Rout ine Cat Scan 01/31/21 13:[address] biopsy lung 32 405 Routine Cat Scan 02/01/21 11:24 Completed XR chest 1V sunil ble [id number] Routine Exams 02/01/21 14:55 Completed XR chest 1V sunil ble [id number] Urgent Exams 01/31/21 03:09 Completed Pending at discharge Category Date Time Status Aspergillus AG,EI A,Serum Stat Lab 01/31/21 12:40 Received Aspergillus Antig en, EIA BAL Routin e Lab 01/31/21 14:53 Received Aspergillus Antig en, EIA BAL Routin e Lab 02/01/21 14:16 Received Blood Culture Sta t Lab 01/31/21 06:19 Results Bronchoalv Lavage Culture & GS Rout ine Lab 01/31/21 14:53 Results Complete Blood Co unt w/Auto AM LABS Lab 02/03/21 04:00 Ordered Comprehensive Met abolic Panel AM LA BS Lab 02/03/21 04:00 Ordered Comprehensive Met abolic Panel AM LA BS Lab 02/04/21 04:00 Ordered Fungal Culture no t HR/SK/BL Routine Lab 01/31/21 14:53 Results Fungal Culture no t HR/SK/BL Routine Lab 02/02/21 10:57 Ordered Fungitell Glucan Assay Routine Lab 01/31/21 12:40 Received Lwyxadh-8-Leycamb te Dehydrogen Rout ine Lab 01/31/21 03:40 Received Miscellaneous Kylie t Routine Lab 01/31/21 14:53 Received Miscellaneous Kylie t Routine Lab 01/31/21 14:53 Received Mycobacteria, Cul ture w/Fluor Routi ne Lab 01/31/21 14:53 Received Mycobacteria, Cul ture w/Fluor Routi ne Lab 01/31/21 14:53 Received Mycobacteria, Cul ture w/Fluor Routi ne Lab 02/01/21 14:16 Received Pneumocystis jiro veci Qual PCR Rout ine Lab 01/31/21 14:53 Received Pneumocystis jiro vecii, QT PCR Rout ine Lab 01/31/21 13:01 Received Hprduyofmaz-XE-If ld Plus Routine Lab 01/31/21 13:00 Received Respiratory Viral Panel PCR Stat Lab 01/31/21 11:22 Received Sputum Culture an d Gram Stain Stat Lab 01/31/21 13:01 Results Tissue Culture an d Gram Stain Routi ne Lab 02/01/21 14:16 Results Cytology [PTH] Ro utine Pth 02/01/21 13:11 Uncollected Labs from last 24 hours 02/02/21 02/02/21 02/01/21 06:55 06:55 16:01 WBC 6.7 RBC 3.32 L Hgb 10.3 L Hct 34.4 L MCV 103.6 H MCH 31.0 MCHC 29.9 L RDW 17.4 H Plt Count 236 MPV 9.9 Neut % (Auto) 83.1 Lymph % (Auto) 10.1 [place] % (Auto) 5.4 Eos % (Auto) 0.2 Baso % (Auto) 0.6 Neut # (Auto) 5.53 Lymph # (Auto) 0.7 L [place] # (Auto) 0.4 Eos # (Auto) 0.0 Baso # (Auto) 0.0 Nucleated RBC % (a uto) 0 Nucleated RBCs # 0.0 PT INR APTT Sodium 140 Potassium 4.4 Chloride 101 Carbon Dioxide 31 H Anion Gap 12.4 BUN 15 Creatinine 0.6 GFR Calculation Not Reportable Glucose 98 Calculated Osmolal ity 291 Calcium 9.0 Total Bilirubin 0.2 AST 38 H ALT 14 Alkaline Phosphata se 114 H Total Protein 6.4 L Albumin 3.8 Globulin 2.6 Vancomycin Trough 8.9 L Aspergillus Ag (EI A) A. galactomannan A g Idx 02/01/21 02/01/21 14:16 12:25 WBC RBC Hgb Hct MCV MCH MCHC RDW Plt Count MPV Neut % (Auto) Lymph % (Auto) [place] % (Auto) Eos % (Auto) Baso % (Auto) Neut # (Auto) Lymph # (Auto) [place] # (Auto) Eos # (Auto) Baso # (Auto) Nucleated RBC % (a uto) Nucleated RBCs # PT 13.20 INR 0.97 APTT 26.8 Sodium Potassium Chloride Carbon Dioxide Anion Gap BUN Creatinine GFR Calculation Glucose Calculated Osmolal ity Calcium Total Bilirubin AST ALT Alkaline Phosphata se Total Protein Albumin Globulin Vancomycin Trough Aspergillus Ag (EI A) Pending A. galactomannan A g Idx Pending Addt'l Data from Hospital Stay: Laboratory Results WBC 6.7 10^3/uL (4.0- 10.0) 02/02/21 06:55 RBC 3.32 10^6/uL (4.1 -5.3) L 02/02/21 06:55 Hgb 10.3 g/dL (11.5-1 5.3) L 02/02/21 06:55 Hct 34.4 % (37.0-47.0 ) L 02/02/21 06:55 MCV 103.6 fL (81-99) H 02/02/21 06:55 MCH 31.0 pg (28.0-34. 0) 02/02/21 06:55 MCHC 29.9 g/dL (30.0-3 6.0) L 02/02/21 06:55 RDW 17.4 % (12.1-15.1 ) H 02/02/21 06:55 Plt Count 236 10^3/cmm (130 -400) 02/02/21 06:55 MPV 9.9 fL (7.4-10.4) 02/02/21 06:55 Neut % (Auto) 83.1 % 02/02/21 06:55 Lymph % (Auto) 10.1 % 02/02/21 06:55 [place] % (Auto) 5.4 % 02/02/21 06:55 Eos % (Auto) 0.2 % 02/02/21 06:55 Baso % (Auto) 0.6 % 02/02/21 06:55 Neut # (Auto) 5.53 10^3/uL (1.8 -7.7) 02/02/21 06:55 Lymph # (Auto) 0.7 10^3/uL (0.8- 4.8) L 02/02/21 06:55 [place] # (Auto) 0.4 10^3/uL (0.2- 0.9) 02/02/21 06:55 Eos # (Auto) 0.0 10^3/uL (0.0- 0.8) 02/02/21 06:55 Baso # (Auto) 0.0 10^3/uL (0.0- 0.1) 02/02/21 06:55 Nucleated RBC % (a uto) 0 % 02/02/21 06:55 Nucleated RBCs # 0.0 /100WBC 02/02/21 06:55 PT 13.20 SECONDS (12 .1-14.9) 02/01/21 12:25 INR 0.97 (0.8-1.2) 02/01/21 12:25 APTT 26.8 SECONDS (23. 9-36.7) 02/01/21 12:25 Specimen Type Arterial 01/31/21 03:41 Sample Site Brachial, right 01/31/21 03:41 ABG pH 7.38 (7.35-7.45) 01/31/21 03:41 ABG pCO2 50.8 mmHg (35-45) H 01/31/21 03:41 ABG pO2 70.6 mmHg (80.0-1 00.0) L 01/31/21 03:41 ABG HCO3 29.8 mmol/L (22-2 6) H 01/31/21 03:41 ABG Base Excess 3.7 mmol/L (-2.0- 2.0) H 01/31/21 03:41 Reji Test Pos 01/31/21 03:41 Hematocrit 37.2 % (37-47) 01/31/21 03:41 Hgb O2 Saturation 89.9 % (95-100) L 01/31/21 03:41 Carboxyhemoglobin < 0.0 %THgb (0.4- 20.1) L 01/31/21 03:41 Methemoglobin 1.5 % (0.4-1.5) 01/31/21 03:41 Total Hemoglobin 12.1 g/dL (12-16) 01/31/21 03:41 O2 Delivery Device Nc 01/31/21 03:41 O2 Liters/Min 5.0 % 01/31/21 03:41 Floor Care Technician ID Francesco 01/31/21 03:41 Sodium 140 mmol/L (136-1 45) 02/02/21 06:55 Potassium 4.4 mmol/L (3.5-5 .1) 02/02/21 06:55 Chloride 101 mmol/L (98-10 7) 02/02/21 06:55 Carbon Dioxide 31 mmol/L (22-29) H 02/02/21 06:55 Anion Gap 12.4 (5-19) 02/02/21 06:55 BUN 15 mg/dL (8-23) 02/02/21 06:55 Creatinine 0.6 mg/dL (0.5-0. 9) 02/02/21 06:55 GFR Calculation Not Reportable 02/02/21 06:55 Glucose 98 mg/dL (65-115) 02/02/21 06:55 Estimat Average Gl ucose 74 02/01/21 06:19 Hemoglobin A1c 4.2 % (4.0-6.0) 02/01/21 06:19 Calculated Osmolal ity 291 mOsm/kg (285- 295) 02/02/21 06:55 Calcium 9.0 mg/dL (8.5-10 .5) 02/02/21 06:55 Iron 34 ug/dL (37-145) L 01/31/21 03:40 TIBC 238 mcg/dl 01/31/21 03:40 % Saturation 14.2 % (20-50) L 01/31/21 03:40 Unsat Iron Binding 204 ug/dL (112-34 7) 01/31/21 03:40 Total Bilirubin 0.2 mg/dL (0.15-1 .2) 02/02/21 06:55 AST 38 U/L (0-32) H 02/02/21 06:55 ALT 14 U/L (0-33) 02/02/21 06:55 Alkaline Phosphata se 114 IU/L (35-105) H 02/02/21 06:55 Lactate Dehydrogen ase 544 U/L (135-214) H 01/31/21 03:40 NT-Pro-B Natriuret Pep 264 pg/mL (0-125) H 01/31/21 03:40 Total Protein 6.4 g/dL (6.6-8.7 ) L 02/02/21 06:55 Albumin 3.8 g/dL (3.5-5.2 ) 02/02/21 06:55 Globulin 2.6 g/dL (1.3-4.6 ) 02/02/21 06:55 Procalcitonin 0.07 ng/mL (0-0.5 ) 01/31/21 03:40 TSH 3.73 uIU/mL (0.27 -4.20) 01/31/21 03:40 Urine Color Yellow (Yellow) 01/31/21 17:30 Urine Appearance Clear (CLEAR) 01/31/21 17:30 Urine pH 7 (5-7) 01/31/21 17:30 Ur Specific Gravit y 1.005 (1.005-1.0 30) 01/31/21 17:30 Urine Protein Neg (Negative) 01/31/21 17:30 Urine Glucose (UA) Norm (Normal) 01/31/21 17:30 Urine Ketones Negative (Negati ve) 01/31/21 17:30 Urine Blood Neg (Negative) 01/31/21 17:30 Urine Nitrate Negative (Negati ve) 01/31/21 17:30 Urine Bilirubin Neg (Negative) 01/31/21 17:30 Urine Urobilinogen Norm mg/dL (Negat daniel) 01/31/21 17:30 Ur Leukocyte Genesis ase Trace (Negative) H 01/31/21 17:30 Urine RBC 0-4 /hpf (0-2) H 01/31/21 17:30 Urine WBC 0-4 /hpf (0-5) H 01/31/21 17:30 Ur Squamous Epith Cells 0-4 /hpf (0-5) H 01/31/21 17:30 Amorphous Sediment Not Reportable 01/31/21 17:30 Urine Bacteria Trace /hpf (NONE) 01/31/21 17:30 Ur Random Sodium 37 mmol/L 01/31/21 17:30 Ur Random Potassiu m 27 mmol/L 01/31/21 17:30 Ur Random Chloride 38 mmol/L 01/31/21 17:30 Vancomycin Trough 8.9 ug/mL (10-15) L 02/01/21 16:01 Influenza Type A A g Negative (Negati ve) 01/31/21 11:20 Influenza Type B A g Negative (Negati ve) 01/31/21 11:20 SARS-CoV-2 Ag (Rap id) Negative (Negati ve) 01/31/21 03:20 Beta-(1,3)-D-Gluca n Cancelled 01/31/21 14:53 B-(1,3)-D-Glucan I ntrp Cancelled 01/31/21 14:53 Impressions Chest CTA 01/31/21 13:00 IMPRESSION: 1. No evidence for pulmonary embolus. 2. Circumferential nodular massing along the left parietal pleura and visceral pleural surfaces of the lung. 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 Tissue sampling is recommended. 3. 8 mm left lower lobe and 3 mm right upper lobe nodules could represent metastasis. 4. Mildly enlarged mediastinal and left hilar lymph nodes are suspicious for metastatic disease. 5. Patchy ground-glass opacities in both lungs and right lower lobe consolidation, most likely pneumonia. 6. Severe emphysema. 7. Multiple chronic thoracic compression fractures. Radiation Dose CTDIVOL = (mGy): DLP = 548.98 (mGy-cm) ADDENDUM: 01/31/211816 THIS REPORT CONTAINS FINDINGS THAT MAY BE CRITICAL TO PATIENT CARE. The findings were verbally communicated via telephone conference with AL RUVALCABA at 6:15 PM CDT on 01/31/2021. The findings were acknowledged and understood. Radiation Dose CTDIVOL = (mGy): DLP = 548.98 (mGy-cm) Lung Biopsy CT 02/01/21 11:24 IMPRESSION: 1. Multiple 18-gauge core samples were obtained of the left lung mass. No immediate complications. 2. 30 minute chest x-ray demonstrates no pneumothorax. Chest X-Ray 02/01/21 14:55 IMPRESSION: 1. Extensive lobulated pleural thickening along the superior and lateral left pleural cavity may indicate pleural malignancy such as mesothelioma. There is also soft tissue lobulation along the left heart border that may represent tumor involvement. 2. Extensive airspace and interstitial infiltrates throughout the left lung as well as the mid and lower right lung. 3. No pneumothorax identified. Microbiology 01/31/21 14:53 Lung Left Lower Lobe Gram Stain - Final 01/31/21 14:53 Lung Left Lower Lobe Bronchoalveolar Lavage Culture - Preliminary Yeast Staphylococcus species Gram positive [place] 01/31/21 13:01 Sputum - Expectorated Sputum Gram Stain - Final 01/31/21 13:01 Sputum - Expectorated Sputum Sputum Culture - Preliminary Yeast Staphylococcus species Gram positive [place] 02/01/21 14:16 Lung - Biopsy Gram Stain - Final 01/31/21 14:53 Sputum - Endotracheal Wash Fungal Smear - Preliminary 01/31/21 11:20 Nose MRSA Culture - Final 01/31/21 17:30 Urine Kidney Bacterial Antigens - Final 01/31/21 17:30 Urine,Voided Legionella Urinary Antigen - Final 01/31/21 06:19 Blood Blood Culture - Preliminary NEGATIVE TO DATE 01/31/21 06:10 Blood Blood Culture - Preliminary NEGATIVE TO DATE Vitals: Last Vital Signs Temp 97.5 F L 02/02/21 11:11 Pulse 77 02/02/21 11:11 Resp 16 02/02/21 11:11 BP 110/82 02/02/21 11:11 Pulse Ox 95 02/02/21 11:11 TS Medications Medications Home Medications cyclobenzaprine 10 mg tablet 10 mg PO TID PRN 08/19/19 [History Confirmed 01/31/21] folic acid 1 mg tablet 1 mg PO DAILY tab 08/19/19 [History Confirmed 01/31/21] levetiracetam 500 mg tablet 500 mg PO BID 12/01/19 [History Confirmed 01/31/21] ondansetron 4 mg disintegrating tablet 4 mg PO QAM 12/29/19 [History Confirmed 01/31/21] albuterol sulfate 2 puff INHALATION Q4H PRN 03/17/20 [History Confirmed 01/31/21] diclofenac sodium 2 gm TOPICAL QID PRN 03/17/20 [History Confirmed 01/31/21] tramadol 50 mg PO BID PRN 03/17/20 [History Confirmed 01/31/21] loperamide [Imodium A-D] 2 - 4 mg PO PRN 03/19/20 [History Confirmed 01/31/21] sulfasalazine 500 mg tablet 1,000 mg PO BID #360 tab 08/01/20 [Rx Confirmed 01/31/21] diphenoxylate-atropine [Lomotil] 1 tab PO Q6H PRN 08/15/20 [History Confirmed 01/31/21] fluticasone fur. 100 mcg-umeclid 62.5 mcg-vilant 25 mcg inhalat.powder 1 inh INHALATION DAILY 30 Days #60 ea 12/25/20 [Rx Confirmed 01/31/21] Rub On Relief 1 applic TOPICAL PRN 01/31/21 [History Confirmed 01/31/21] citalopram 10 mg PO BEDTIME 01/31/21 [History Confirmed 01/31/21] duloxetine 60 mg PO BEDTIME 01/31/21 [History Confirmed 01/31/21] ipratropium-albuterol See Rx Instructions .ROUTE .COMPLEX 01/31/21 [History Confirmed 01/31/21] leflunomide 20 mg PO BEDTIME 01/31/21 [History Confirmed 01/31/21] multivitamin 1 tab PO DAILY 01/31/21 [History Confirmed 01/31/21] omeprazole 40 mg PO QAM 01/31/21 [History Confirmed 01/31/21] oxycodone-acetaminophen 1 tab PO Q4H PRN 01/31/21 [History Confirmed 01/31/21] Active Medications Acetaminophen (Acetaminophen 325 Mg Tablet) 650 mg PO Q6H PRN PRN Reason: Mild Pain Or Temp >/= 101 Albuterol/Ipratropium (Ipratropium-Albuterol 3 Ml Neb) 3 ml INHALATION Q4H.RESPIRATORY PRN PRN Reason: SHORTNESS OF BREATH Albuterol/Ipratropium (Ipratropium-Albuterol 3 Ml Neb) 3 ml INHALATION Q4H.RESPIRATORY SUJIT Last Admin: 02/02/21 08:59 Dose: 3 ml Documented by: Alprazolam (Alprazolam 0.5 Mg Tablet) 0.25 mg PO TID SUJIT Last Admin: 02/02/21 09:41 Dose: 0.25 mg Documented by: Benzonatate (Benzonatate 100 Mg Capsule) 100 mg PO TID SUJIT Last Admin: 02/02/21 08:46 Dose: 100 mg Documented by: Budesonide (Budesonide 0.5 Mg/2 Ml Neb) 0.5 mg INHALATION BID.RESPIRATORY SUJIT Last Admin: 02/02/21 09:05 Dose: Not Given Documented by: Citalopram Hydrobromide (Citalopram 20 Mg Tablet) 10 mg PO BEDTIME SUJIT Last Admin: 02/01/21 20:17 Dose: 10 mg Documented by: Cyclobenzaprine HCl (Cyclobenzaprine 10 Mg Tablet) 10 mg PO TID PRN PRN Reason: Muscle Spasm Last Admin: 02/01/21 20:17 Dose: 10 mg Documented by: Duloxetine HCl (Duloxetine 60 Mg Capsule) 60 mg PO BEDTIME SUJIT Last Admin: 02/01/21 20:17 Dose: 60 mg Documented by: Fentanyl (Fentanyl 50 Mcg/Ml Inj 2ml) 25 mcg IVP Q5M PRN PRN Reason: ANESTHESIA Last Admin: 02/01/21 14:03 Dose: 25 mcg Documented by: Fentanyl (Fentanyl 50 Mcg/Ml Inj 2ml) 50 mcg IVP Q5M PRN PRN Reason: ANESTHESIA Ferrous Gluconate (Ferrous Gluconate 324 Mg Tablet) 324 mg PO BIDWM SUJIT Last Admin: 02/02/21 08:47 Dose: 324 mg Documented by: Fluconazole (Fluconazole 100 Mg Tablet) 100 mg PO DAILY [facility] Last Admin: 02/02/21 08:46 Dose: 100 mg Documented by: Folic Acid (Folic Acid 1 Mg Tablet) 1 mg PO DAILY [facility] Last Admin: 02/02/21 08:47 Dose: 1 mg Documented by: Heparin Sodium (Beef Lung) (Heparin 5,000 Unit/Ml Inj 1 Ml) 5,000 unit SUBCUT Q12H [facility] Last Admin: 02/01/21 01:30 Dose: 5,000 unit Documented by: Azithromycin 500 mg/ Sodium (Chloride) 250 mls @ 250 mls/hr IV Q24H [facility]; Protocol Last Infusion: 02/02/21 08:30 Dose: Infused Documented by: Imipenem/Cilastatin Sodium 500 (mg/ Sodium Chloride) 100 mls @ 200 mls/hr IV Q6H [facility]; Protocol Last Infusion: 02/02/21 09:55 Dose: Infused Documented by: Sodium Chloride (Sodium Chloride 0.9%) 1,000 mls @ 30 mls/hr IV .Q24H [facility] Last Infusion: 02/01/21 14:42 Dose: Infused Documented by: Vancomycin HCl 1,000 mg/ (Sodium Chloride) 250 mls @ 250 mls/hr IV Q12H [facility] Last Infusion: 02/02/21 06:38 Dose: Infused Documented by: Levetiracetam (Levetiracetam 500 Mg Tablet) 500 mg PO BID@0900,2100 [facility] Last Admin: 02/02/21 08:47 Dose: 500 mg Documented by: Methylprednisolone Sodium Succinate (Methylprednisolone Sod Succ 40 Mg/Ml Inj) 40 mg IVP Q12H [facility] Last Admin: 02/02/21 03:34 Dose: 40 mg Documented by: Metoprolol Tartrate (Metoprolol Tartrate 25 Mg Tablet) 25 mg PO BID@0900,2100 [facility] Last Admin: 02/02/21 08:46 Dose: 25 mg Documented by: Midazolam HCl (Midazolam 1 Mg/Ml Inj 2 Ml) 1 mg IVP Q5M PRN PRN Reason: ANESTHESIA Midazolam HCl (Midazolam 1 Mg/Ml Inj 2 Ml) 2 mg IVP Q5M PRN PRN Reason: ANESTHESIA Last Admin: 02/01/21 14:02 Dose: 2 mg Documented by: Ondansetron HCl (Ondansetron 2 Mg/Ml Sdv 2 Ml) 4 mg IVP Q8H PRN PRN Reason: vomiting, or N/V if npo Last Admin: 02/01/21 08:31 Dose: 4 mg Documented by: Oxycodone/Acetaminophen (Oxycodone-Apap 5-325 Mg Tablet) 1 tab PO Q4H PRN PRN Reason: MODERATE Pain Last Admin: 02/01/21 20:17 Dose: 1 tab Documented by: Pantoprazole Sodium (Pantoprazole Dr 40 Mg Tablet) 40 mg PO DAILY [facility] Last Admin: 02/02/21 08:46 Dose: 40 mg Documented by: Trimethoprim/Sulfamethoxazole (Sulfamethoxazole-Trimeth Ds 160-800 Mg Tablet) 1 tab PO BID [facility]; Protocol Last Admin: 02/02/21 08:47 Dose: 1 tab Documented by: Discharge Plan Discharge Patient Disposition: Home Condition: Stable Prescriptions: No Action cyclobenzaprine 10 mg tablet 10 mg PO TID PRN (Reason: Muscle Spasm) RF: 0 folic acid 1 mg tablet 1 mg PO DAILY RF: 0 levetiracetam [Keppra] 500 mg tablet 500 mg PO BID RF: 0 ondansetron 4 mg tablet,disintegrating 4 mg PO QAM RF: 0 sulfasalazine 500 mg tablet 1,000 mg PO BID Qty: 360 RF: 1 Trelegy Ellipta 100-62.5-25 mcg blister with device 1 inh inhalation DAILY 30 Days Qty: 60 RF: 3 tramadol 50 mg Tablet 50 mg PO BID PRN (Reason: Pain) RF: 0 albuterol sulfate 90 mcg/actuation HFA aerosol inhaler 2 puff inhalation Q4H PRN (Reason: Shortness Of Breath) RF: 0 diclofenac sodium 1 % gel 2 gm TOPICAL QID PRN (Reason: Pain) RF: 0 loperamide [Imodium A-D] 2 mg Tablet 2 - 4 mg PO PRN RF: 0 citalopram 10 mg tablet 10 mg PO BEDTIME RF: 0 duloxetine 60 mg capsule,delayed release(DR/EC) 60 mg PO BEDTIME RF: 0 multivitamin Tablet 1 tab PO DAILY RF: 0 ipratropium-albuterol 0.5 mg-3 mg(2.5 mg base)/3 mL solution for nebulization See Rx Instructions .ROUTE .COMPLEX RF: 0 omeprazole 40 mg capsule,delayed release(DR/EC) 40 mg PO QAM RF: 0 oxycodone-acetaminophen 5-325 mg tablet 1 tab PO Q4H PRN (Reason: Pain) RF: 0 Rub On Relief 1 applic topical PRN RF: 0 leflunomide 20 mg tablet 20 mg PO BEDTIME RF: 0 diphenoxylate-atropine [Lomotil] 2.5-0.025 mg Tablet 1 tab PO Q6H PRN (Reason: Diarrhea) RF: 0 Discharge Orders: Transfer Out of Facility (Order); Ordered 02/02/21 Ordered By: Al Ruvalcaba Referrals: In Home Services [Other] (The In Home Service phone number is [phone].) Cornel Hu DO [Primary Care Provider] - Patient Instructions: Opioid Safety Transfer Attestations Time Spent in Transfer Care*: greater than 30 min Specific Discharge Activities: Specific discharge activities: educating patient, educating and/or supporting family/caregiver, discussing with pcp/other providers, discussing with pillowcase cutter/social workers/dc planners, documenting/other paperwork and evaluating patient/reviewing data Status at Transfer: Cognitive status at transfer: cognitively intact, Behavioral status at transfer: cooperative, Functional status at transfer: uses cane/walker Overall status at transfer: patient is not back to baseline Quality Metrics Clinical Quality Measures: During this hospital stay, did patient experience: None Coding Level of Care Code Acute [employer] Bever[employer] Assistant Manager for g Fwd Diagnoses ARDS (adult respiratory distress syndrome) J80 Respiratory failure with hypoxia J96.21 Chronicity: acute on chronic Emphysema of lung J43.9 Emphysema type: unspecified High risk medication use Z79.899 Rheumatoid arthritis with rheumatoid factor 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
[2021-02-02] MEDS: sodium chloride 0.9% 1,000 ML 30 ML IV (12:27)
[2021-02-02] MEDS: oxyCODONE-APAP 5-325 mg Tablet 1 TAB PO (12:29)
--- NOTE | 2021-02-02 13:09 | PC.NURSE ---
Awaiting call from [facility] with bed assignment for patient.
--- NOTE | 2021-02-02 13:39 | PC.NURSE ---
Small amount of slightly blood tinged sputum given to this nurse. Collected in specimen container.
--- NOTE | 2021-02-02 14:35 | PC.NURSE ---
Report called to Zainab GUTIÉRREZ at [facility]. Transport notified. Pt made aware and verbalizes understanding.
[2021-02-03 07:49] LABS: P. Jirovecii DNA QL PCR NOT DETECTED
[2021-02-04 12:33] LABS: Quantiferon Nil 0.54 IU/mL; Quantiferon Plus TB1 <0.00 IU/mL; Quantiferon Plus TB2 <0.00 IU/mL; Quantiferon TB Gold NEGATIVE (NEGATIVE)
[2021-02-05 15:47] LABS: Adenovirus Not Detected (Not Detected); Human Metapneumovirus Not Detected (Not Detected); Human Parainflu Virus 1 Not Detected (Not Detected); Human Parainflu Virus 2 Not Detected (Not Detected); Human Parainflu Virus 3 Not Detected (Not Detected); Human Rsv A Not Detected (Not Detected); Influenza A Not Detected (Not Detected); Influenza B Not Detected (Not Detected); Rhinovirus/Enterovirus Not Detected (Not Detected)
[2021-02-05 16:22] LABS: Fungitell 1-3-B Glucan Assay <31; Interpretation NEGATIVE
[2021-02-06 20:47] LABS: Glucose-6-Phosphate Dehydrogen >21.0 U/g Hgb (7.0-20.5)
[2021-02-07 19:08] LABS: Aspergillus AG,EIA NOT DETECTED; Aspergillus AG,EIA, Index <0.50
[2021-02-08 17:23] LABS: P. Jirovecii DNA QL PCR NOT DETECTED; P. Jirovecii DNA QL PCR Source INDUCED SPUTUM
[2021-02-12 12:57] LABS: Aspergillus AG,EIA,Serum NOT DETECTED; Aspergillus Galactomannan Inde <0.50
[2021-02-12 12:57] LABS: Aspergillus AG,EIA NOT DETECTED; Aspergillus AG,EIA, Index <0.50
== END 2021-02-02 15:31 | disposition short-term general hospital (02) | DRG 189 ==
LOC: ER 04:23 → MEDSURG 04:38
PROVIDERS: Internal Medicine Pulmonary Disease; Radiology Neuroradiology; Admitting Provider Hospitalist; Emergency Provider Emergency Medicine; PCP Internal Medicine; Visit Provider Student in an Organized Health Care Education/Training Program
PROC: 0BJ08ZZ Inspection of Tracheobronchial Tree, Via Natural or Artificial Opening Endoscopic (ICD-10-PCS; CPT 31622; principal; 2021-01-31 14:00)
PROC: 0B9L3ZX Drainage of Left Lung, Percutaneous Approach, Diagnostic (ICD-10-PCS; principal; 2021-02-01 13:00)
DX: J96.22 Acute and chronic respiratory failure with hypercapnia (principal); J18.9 Pneumonia, unspecified organism; D84.821 Immunodeficiency due to drugs; J90 Pleural effusion, not elsewhere classified; J96.21 Acute and chronic respiratory failure with hypoxia; M05.9 Rheumatoid arthritis with rheumatoid factor, unspecified; Z86.16 Personal history of COVID-19; Z99.81 Dependence on supplemental oxygen; Z87.891 Personal history of nicotine dependence; Z79.899 Other long term (current) drug therapy; F32.9 Major depressive disorder, single episode, unspecified; J43.9 Emphysema, unspecified; R91.8 Other nonspecific abnormal finding of lung field; Z87.01 Personal history of pneumonia (recurrent); Z79.51 Long term (current) use of inhaled steroids; Z79.891 Long term (current) use of opiate analgesic
CPT/HCPCS: 31624; 32408; 36415; 71045; 71275; 77012; 80053; 80202; 81001; 82436; 82805; 82955; 83036; 83540; 83550; 83615; 83880; 84133; 84145; 84300; 84443; 85025; 85610; 85730; 86403; 86480; 87015; 87040; 87070; 87077; 87102; 87106; 87116; 87176; 87186; 87205; 87206; 87305; 87426; 87449; 87641; 87798; 87799; 87801; 87804; 88112; 88305; 88307; 93005; 94640; 94664; 94762; 96365; 96367; 96372; 96374; 96375; 97161; 99285; J0456; J0696; J0743; J1644; J2250; J2405; J2920; J2930; J3010; J3370; J7030; J7050; J7611; Q9967

== ENCOUNTER 2021-02-16 03:06 | Inpatient (IN) | payer MEDICARE, OTHER, SELFPAY ==
[2021-02-16] VITALS (29 sets, daily range): BP systolic 97–139; BP diastolic 56–91; PULSE 81–128; RESP 17–35; TEMP 36.7–37.1; O2SAT 87–100; BMI 27.4
--- NOTE | 2021-02-16 03:11 | XRR_ITS ---
PROCEDURE INFORMATION: Exam: XR Chest Exam date and time: 02/16/2021 3:11 AM Age: 70 years old Clinical indication: Dyspnea; Additional info: SOB TECHNIQUE: Imaging protocol: XR of the chest. Views: 1 view. 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 Lungs: Stable left hemithorax pleural thickening. Increased opacities in the left lung which may be secondary to pneumonia or neoplasm. Stable patchy opacity at the right lung base. Pleural spaces: See Lungs finding. Heart/Mediastinum: Unremarkable. No cardiomegaly. Bones/joints: Unremarkable. XR/XR chest 1V portable [id number] IMPRESSION: 1. Stable left hemithorax pleural thickening. 2. Increased opacities in the left lung which may be secondary to pneumonia or neoplasm.
--- NOTE | 2021-02-16 03:12 | ECG_ITS ---
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
[2021-02-16 03:27] LABS: ABG PCO2 55.3 mmHg (35-45); ABG PH Result 7.39 (7.35-7.45); Arterial Blood Gas Hematocrit 34.1 % (37-47); Base Excess ABG 7.4 mmol/L (-2.0-2.0); Blood Gas Allen Test Pos; Blood Gas Operator Identificat JB; Blood Gas Sample Site Brachial, right; Blood Gas Sample Type Arterial; Carboxyhemoglobin < 0.0 %THgb (0.4-20.1); HCO3 ABG 33.7 mmol/L (22-26); HGB O2 Sat 97.8 % (95-100); Methemoglobin 0.8 % (0.4-1.5); Oxygen Device BIPAP; Total Hemoglobin 11.1 g/dL (12-16)
[2021-02-16 03:41] LABS: Basophils # 0.1 10^3/uL (0.0-0.1); Basophils % 0.7 %; Eosinophils # 0.1 10^3/uL (0.0-0.8); Eosinophils % 1.1 %; Hematocrit 31.4 % (37.0-47.0); Hemoglobin 9.5 g/dL (11.5-15.3); Lymphocytes # 0.7 10^3/uL (0.8-4.8); Lymphocytes % 6.2 %; Mean Corpuscular HGB Conc 30.3 g/dL (30.0-36.0); Mean Corpuscular Hemoglobin 30.1 pg (28.0-34.0); Mean Corpuscular Volume 99.4 fL (81-99); Mean Platelet Volume 9.1 fL (7.4-10.4); Monocytes # 0.5 10^3/uL (0.2-0.9); Monocytes % 4.7 %; Neutrophils # 9.89 10^3/uL (1.8-7.7); Neutrophils % 87.1 %; Nucleated Red Blood Cells % 0 %; Platelet Count 380 10^3/cmm (130-400); Red Blood Count 3.16 10^6/uL (4.1-5.3); Red Cell Distribution Width 15.8 % (12.1-15.1); White Blood Count 11.4 10^3/uL (4.0-10.0)
[2021-02-16 04:02] LABS: Lactic Sepsis W/Reflex 1.5 mmol/L (0.5-2.2)
[2021-02-16 04:04] LABS: Troponin(5th) Baseline 16 ng/L (0-10)
[2021-02-16 04:13] LABS: NT Pro B Type Natriuretic Pept 923 pg/mL (0-125); Procalcitonin 0.15 ng/mL (0-0.5)
[2021-02-16] MEDS: LORazepam 2 mg/mL INJ 1 mL 1 MG IVP (04:13)
[2021-02-16] MEDS: ondansetron 2 mg/ML SDV 2 mL 4 MG IVP ×2 (04:14→20:28)
[2021-02-16 04:24] LABS: Alanine Aminotransferase 25 U/L (0-33); Albumin Level 3.4 g/dL (3.5-5.2); Alkaline Phosphatase 163 IU/L (35-105); Aspartate Amino Transferase 46 U/L (0-32); Blood Urea Nitrogen 9 mg/dL (8-23); C Reactive Protein 47.7 mg/L (0.0-4.9); Calcium 9.8 mg/dL (8.5-10.5); Carbon Dioxide 28 mmol/L (22-29); Chloride 97 mmol/L (98-107); Globulin 2.9 g/dL (1.3-4.6); Glucose 103 mg/dL (65-115); Osmolality Calculated 285 mOsm/kg (285-295); Sodium 138 mmol/L (136-145); Total Bilirubin 0.3 mg/dL (0.15-1.2); Total Protein 6.3 g/dL (6.6-8.7)
[2021-02-16 04:27] LABS: Anion Gap 16.8 (5-19); Potassium 3.8 mmol/L (3.5-5.1)
--- NOTE | 2021-02-16 04:30 | W.ED.SOB ---
Documented by User: Chalo Miller, 02/16/21 18:49 HPI - SOB/Dyspnea General: Chief Complaint: Shortness of Breath/Dyspnea Stated Complaint: resp distress Time Seen by Provider: 02/16/21 03:11 History of Present Illness: HPI Narrative: 70-year-old female with a history of COPD and rheumatoid arthritis. She was recently transferred from this facility to [facility] in [place] due to concern for the need of a VATS procedure. She presents with significant shortness of breath, cough with some sputum production. She denies any fever. Review of Systems General: Reports: ROS unobtainable due to medical condition PFSH ED PFSH: Medical History Cerebral aneurysm COPD (chronic obstructive pulmonary disease) exacerbation COVID-19 Emphysema of lung Fatigue High risk medication use Immunodeficiency secondary to chemotherapy Pleural effusion Rheumatoid arthritis with rheumatoid factor 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 systems involvement Surgical History H/O brain surgery x7 H/O esophagogastroduodenoscopy (08/20/20) H/O tubal ligation History of colonoscopy Family History Other CAD (coronary artery disease) Cancer Rheumatoid arthritis Stroke Denies family history of Diabetes Chronic kidney disease (CKD) Systemic lupus erythematosus (SLE) in adult Hypertension Social History Smoking and tobacco status: former smoker Quit status (tobacco): has quit using tobacco Year quit tobacco: 2004 - 1PPD x 50 Years Second hand smoke exposure: No Smoking risk assessment/counseling performed?: No Alcohol intake: never Lives independently: Yes Household members: spouse Marital status: Current occupational status: unemployed Pets and animals: Yes History of recent travel: No Current gender identity: Female Physical Exam Const: GENERAL APPEARANCE: lethargic, ill appearing and frail appearing ORIENTATION/CONSCIOUSNESS: Yes lethargic HENMT: COMMON NORMALS: normocephalic HEAD & SCALP: normocephalic Eye: COMMON NORMALS: Equal, round and reactive pupils present PUPIL: Yes Equal, round and reactive pupils present Chest: COMMONS NORMALS: normal inspection of the chest Resp: EFFORT & INSPECTION: Yes tachypneic, Yes respiratory distress and Yes labored AUSCULTATION: rhonchi throughout Cardio: COMMON NORMALS: regular rhythm RATE: tachycardic RHYTHM: regular rhythm GI: COMMON NORMALS: Normal to inspection, nondistended, normoactive bowel sounds present Neuro: SENSORIUM/ORIENTATION: Yes lethargic Course Consultations: Consultation #1: christiane Consultation #2: Juan Forman Pulmonology Vital Signs: Vital signs: Vital Signs Temperature 98.0 F 02/16/21 03:12 Pulse Rate 114 H 02/16/21 16:18 Respiratory Rate 17 02/16/21 16:11 Blood Pressure 132/82 02/16/21 14:09 Pulse Oximetry 92 02/16/21 16:56 MDM - SOB/Dyspnea MDM Narrative: Medical decision making narrative: 70-year-old female in respiratory failure. She was hypoxic on EMS arrival. She has done well on BiPAP here. She remains tachycardic though. Hemoglobin 9.5. White blood cell count 11.4. Her lactic is only 1.5. She was on CPAP on arrival, and initial blood gas showed normal pH with a compensated respiratory acidosis. She has recurrence of pneumonia in the left upper and lower lobes. She has grown viridans strep in the past. She is treated with Levaquin and vancomycin here. She is allergic to penicillin. Spoke with our hospitalist team. This patient was transferred on 02/04 after stabilization here for a possible VATS procedure. She was treated at [facility] in [place]. We have no pulmonary coverage this weekend. I spoke with the provider relations specialist on-call there, who is willing to take her in transfer, but they are on pulmonary bed hold. They will call us when a bed is available. This patient has a history of cardiomyopathy as well, so full sepsis bolus was not given to this patient. She was given a liter of fluid for the tachycardia. It will be a while before the bed is available, she would go to the first floor here at the hospital. Lab Data: Labs: Lab Results 02/16/21 02/16/21 02/16/21 Range/Units 03:12 03:20 03:20 WBC 11.4 H (4.0-10.0) 10^3/ uL RBC 3.16 L (4.1-5.3) 10^6/u L Hgb 9.5 L (11.5-15.3) g/dL Hct 31.4 L (37.0-47.0) % MCV 99.4 H (81-99) fL MCH 30.1 (28.0-34.0) pg MCHC 30.3 (30.0-36.0) g/dL RDW 15.8 H (12.1-15.1) % Plt Count 380 (130-400) 10^3/c mm MPV 9.1 (7.4-10.4) fL Neut % (Auto) 87.1 % Lymph % (Auto) 6.2 % [place] % (Auto) 4.7 % Eos % (Auto) 1.1 % Baso % (Auto) 0.7 % Neut # (Auto) 9.89 H (1.8-7.7) 10^3/u L Lymph # (Auto) 0.7 L (0.8-4.8) 10^3/u L [place] # (Auto) 0.5 (0.2-0.9) 10^3/u L Eos # (Auto) 0.1 (0.0-0.8) 10^3/u L Baso # (Auto) 0.1 (0.0-0.1) 10^3/u L Nucleated RBC % (a uto) 0 % Nucleated RBCs # 0.0 /100WBC Specimen Type Arterial Sample Site Brachial, right ABG pH 7.39 (7.35-7.45) ABG pCO2 55.3 H (35-45) mmHg ABG pO2 213.0 H (80.0-100.0) mmH g ABG HCO3 33.7 H (22-26) mmol/L ABG Base Excess 7.4 H (-2.0-2.0) mmol/ L Reji Test Pos Hematocrit 34.1 L (37-47) % Hgb O2 Saturation 97.8 (95-100) % Carboxyhemoglobin < 0.0 L (0.4-20.1) %THgb Methemoglobin 0.8 (0.4-1.5) % Total Hemoglobin 11.1 L (12-16) g/dL O2 Delivery Device Bipap FiO2 100.0 % Financial Systems Analyst ID Francesco Sodium 138 (136-145) mmol/L Potassium 3.8 (3.5-5.1) mmol/L Chloride 97 L (98-107) mmol/L Carbon Dioxide 28 (22-29) mmol/L Anion Gap 16.8 (5-19) BUN 9 (8-23) mg/dL Creatinine 0.7 (0.5-0.9) mg/dL GFR Calculation Not Reportable Glucose 103 (65-115) mg/dL Calculated Osmolal ity 285 (285-295) mOsm/k g Lactic Acid (0.5-2.2) mmol/L Calcium 9.8 (8.5-10.5) mg/dL Total Bilirubin 0.3 (0.15-1.2) mg/dL AST 46 H (0-32) U/L ALT 25 (0-33) U/L Alkaline Phosphata se 163 H (35-105) IU/L Troponin T Baselin e (0-10) ng/L C-Reactive Protein 47.7 H (0.0-4.9) mg/L NT-Pro-B Natriuret Pep 923 H (0-125) pg/mL Total Protein 6.3 L (6.6-8.7) g/dL Albumin 3.4 L (3.5-5.2) g/dL Globulin 2.9 (1.3-4.6) g/dL Procalcitonin 0.15 (0-0.5) ng/mL SARS-CoV-2 Ag (Rap id) (Negative) 02/16/21 02/16/21 02/16/21 Range/Units 03:20 03:20 03:20 WBC (4.0-10.0) 10^3/ uL RBC (4.1-5.3) 10^6/u L Hgb (11.5-15.3) g/dL Hct (37.0-47.0) % MCV (81-99) fL MCH (28.0-34.0) pg MCHC (30.0-36.0) g/dL RDW (12.1-15.1) % Plt Count (130-400) 10^3/c mm MPV (7.4-10.4) fL Neut % (Auto) % Lymph % (Auto) % [place] % (Auto) % Eos % (Auto) % Baso % (Auto) % Neut # (Auto) (1.8-7.7) 10^3/u L Lymph # (Auto) (0.8-4.8) 10^3/u L [place] # (Auto) (0.2-0.9) 10^3/u L Eos # (Auto) (0.0-0.8) 10^3/u L Baso # (Auto) (0.0-0.1) 10^3/u L Nucleated RBC % (a uto) % Nucleated RBCs # /100WBC Specimen Type Sample Site ABG pH (7.35-7.45) ABG pCO2 (35-45) mmHg ABG pO2 (80.0-100.0) mmH g ABG HCO3 (22-26) mmol/L ABG Base Excess (-2.0-2.0) mmol/ L Reji Test Hematocrit (37-47) % Hgb O2 Saturation (95-100) % Carboxyhemoglobin (0.4-20.1) %THgb Methemoglobin (0.4-1.5) % Total Hemoglobin (12-16) g/dL O2 Delivery Device FiO2 % Financial Systems Analyst ID Sodium (136-145) mmol/L Potassium (3.5-5.1) mmol/L Chloride (98-107) mmol/L Carbon Dioxide (22-29) mmol/L Anion Gap (5-19) BUN (8-23) mg/dL Creatinine (0.5-0.9) mg/dL GFR Calculation Glucose (65-115) mg/dL Calculated Osmolal ity (285-295) mOsm/k g Lactic Acid 1.5 (0.5-2.2) mmol/L Calcium (8.5-10.5) mg/dL Total Bilirubin (0.15-1.2) mg/dL AST (0-32) U/L ALT (0-33) U/L Alkaline Phosphata se (35-105) IU/L Troponin T Baselin e 16 H (0-10) ng/L C-Reactive Protein (0.0-4.9) mg/L NT-Pro-B Natriuret Pep 827 H (0-125) pg/mL Total Protein (6.6-8.7) g/dL Albumin (3.5-5.2) g/dL Globulin (1.3-4.6) g/dL Procalcitonin 0.16 (0-0.5) ng/mL SARS-CoV-2 Ag (Rap id) (Negative) 02/16/21 02/16/21 Range/Units 07:14 07:40 WBC (4.0-10.0) 10^3/ uL RBC (4.1-5.3) 10^6/u L Hgb (11.5-15.3) g/dL Hct (37.0-47.0) % MCV (81-99) fL MCH (28.0-34.0) pg MCHC (30.0-36.0) g/dL RDW (12.1-15.1) % Plt Count (130-400) 10^3/c mm MPV (7.4-10.4) fL Neut % (Auto) % Lymph % (Auto) % [place] % (Auto) % Eos % (Auto) % Baso % (Auto) % Neut # (Auto) (1.8-7.7) 10^3/u L Lymph # (Auto) (0.8-4.8) 10^3/u L [place] # (Auto) (0.2-0.9) 10^3/u L Eos # (Auto) (0.0-0.8) 10^3/u L Baso # (Auto) (0.0-0.1) 10^3/u L Nucleated RBC % (a uto) % Nucleated RBCs # /100WBC Specimen Type Arterial Sample Site Brachial, left ABG pH 7.33 L (7.35-7.45) ABG pCO2 63.4 H* (35-45) mmHg ABG pO2 114.0 H (80.0-100.0) mmH g ABG HCO3 33.3 H (22-26) mmol/L ABG Base Excess 6.0 H (-2.0-2.0) mmol/ L Reji Test N/a Hematocrit 28.3 L (37-47) % Hgb O2 Saturation (95-100) % Carboxyhemoglobin (0.4-20.1) %THgb Methemoglobin (0.4-1.5) % Total Hemoglobin (12-16) g/dL O2 Delivery Device Bipap FiO2 50.0 % Financial Systems Analyst ID Ed Sodium (136-145) mmol/L Potassium (3.5-5.1) mmol/L Chloride (98-107) mmol/L Carbon Dioxide (22-29) mmol/L Anion Gap (5-19) BUN (8-23) mg/dL Creatinine (0.5-0.9) mg/dL GFR Calculation Glucose (65-115) mg/dL Calculated Osmolal ity (285-295) mOsm/k g Lactic Acid (0.5-2.2) mmol/L Calcium (8.5-10.5) mg/dL Total Bilirubin (0.15-1.2) mg/dL AST (0-32) U/L ALT (0-33) U/L Alkaline Phosphata se (35-105) IU/L Troponin T Baselin e (0-10) ng/L C-Reactive Protein (0.0-4.9) mg/L NT-Pro-B Natriuret Pep (0-125) pg/mL Total Protein (6.6-8.7) g/dL Albumin (3.5-5.2) g/dL Globulin (1.3-4.6) g/dL Procalcitonin (0-0.5) ng/mL SARS-CoV-2 Ag (Rap id) Negative (Negative) Discharge Plan Discharge Patient Disposition: Placed in Observation Admit Provider: Al Ruvalcaba Clinical Impression: Anemia of chronic disease Pneumonia Qualifiers: Pneumonia type: due to unspecified organism Laterality: left Lung location: unspecified part of lung Qualified Code(s): J18.9 - Pneumonia, unspecified organism Respiratory failure Qualifiers: Chronicity: acute Respiratory failure complication: hypoxia Qualified Code(s): J96.01 - Acute respiratory failure with hypoxia Coding Level of Care Code ED Senior Courtroom Clerk for Chg Fwd Exam Detailed Documented by User: Ceferino Montes MD 02/16/21 13:04 HPI - SOB/Dyspnea General: Chief Complaint: Shortness of Breath/Dyspnea Stated Complaint: resp distress Time Seen by Provider: 02/16/21 03:11 [facility] ED PFSH: Medical History Cerebral aneurysm COPD (chronic obstructive pulmonary disease) exacerbation COVID-19 Emphysema of lung Fatigue High risk medication use Immunodeficiency secondary to chemotherapy Pleural effusion Rheumatoid arthritis with rheumatoid factor 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 systems involvement Surgical History H/O brain surgery x7 H/O esophagogastroduodenoscopy (08/20/20) H/O tubal ligation History of colonoscopy Family History Other CAD (coronary artery disease) Cancer Rheumatoid arthritis Stroke Denies family history of Diabetes Chronic kidney disease (CKD) Systemic lupus erythematosus (SLE) in adult Hypertension Social History Smoking and tobacco status: former smoker Quit status (tobacco): has quit using tobacco Year quit tobacco: 2004 - 1PPD x 50 Years Second hand smoke exposure: No Smoking risk assessment/counseling performed?: No Alcohol intake: never Lives independently: Yes Household members: spouse Marital status: Current occupational status: unemployed Pets and animals: Yes History of recent travel: No Current gender identity: Female Course ED course: 629: Dr. Montes Assumed care from Dr. Miller. Vital Signs: Vital signs: Vital Signs Temperature 98.0 F 02/16/21 03:12 Pulse Rate 114 H 02/16/21 16:18 Respiratory Rate 17 02/16/21 16:11 Blood Pressure 132/82 02/16/21 14:09 Pulse Oximetry 92 02/16/21 16:56 MDM - SOB/Dyspnea MDM Narrative: Medical decision making narrative: 0847: [facility] has [facility] accepted the patient in transfer. However, pulmonary bed is not available at this time and we have to wait until a bed opens until patient can be transferred. 0950: Patient with intermittent anxiety with BiPAP use. I explained to the patient that she will need to continue the BiPAP due to her respiratory status. The other options we would have to put her on a ventilator. She states she does not want to be placed on a ventilator. Will give small amount of Versed to see if this helps with her anxiety. 1010: [facility] was contacted and they stated that they do not anticipate an open pulmonology bed anytime soon. We will attempt to observe the patient in the hospital until bed becomes available. Patient presently on BiPAP. 1015: d/w dr. ruvalcaba hospitalist. Will review records and call me back for placement decision. 1225: dr. ruvalcaba will admit pt. he will write orders Lab Data: Attestation: I reviewed the patient's lab results. Labs: Lab Results 02/16/21 02/16/21 02/16/21 Range/Units 03:12 03:20 03:20 WBC 11.4 H (4.0-10.0) 10^3/ uL RBC 3.16 L (4.1-5.3) 10^6/u L Hgb 9.5 L (11.5-15.3) g/dL Hct 31.4 L (37.0-47.0) % MCV 99.4 H (81-99) fL MCH 30.1 (28.0-34.0) pg MCHC 30.3 (30.0-36.0) g/dL RDW 15.8 H (12.1-15.1) % Plt Count 380 (130-400) 10^3/c mm MPV 9.1 (7.4-10.4) fL Neut % (Auto) 87.1 % Lymph % (Auto) 6.2 % [place] % (Auto) 4.7 % Eos % (Auto) 1.1 % Baso % (Auto) 0.7 % Neut # (Auto) 9.89 H (1.8-7.7) 10^3/u L Lymph # (Auto) 0.7 L (0.8-4.8) 10^3/u L [place] # (Auto) 0.5 (0.2-0.9) 10^3/u L Eos # (Auto) 0.1 (0.0-0.8) 10^3/u L Baso # (Auto) 0.1 (0.0-0.1) 10^3/u L Nucleated RBC % (a uto) 0 % Nucleated RBCs # 0.0 /100WBC Specimen Type Arterial Sample Site Brachial, right ABG pH 7.39 (7.35-7.45) ABG pCO2 55.3 H (35-45) mmHg ABG pO2 213.0 H (80.0-100.0) mmH g ABG HCO3 33.7 H (22-26) mmol/L ABG Base Excess 7.4 H (-2.0-2.0) mmol/ L Reji Test Pos Hematocrit 34.1 L (37-47) % Hgb O2 Saturation 97.8 (95-100) % Carboxyhemoglobin < 0.0 L (0.4-20.1) %THgb Methemoglobin 0.8 (0.4-1.5) % Total Hemoglobin 11.1 L (12-16) g/dL O2 Delivery Device Bipap FiO2 100.0 % Financial Systems Analyst ID Francesco Sodium 138 (136-145) mmol/L Potassium 3.8 (3.5-5.1) mmol/L Chloride 97 L (98-107) mmol/L Carbon Dioxide 28 (22-29) mmol/L Anion Gap 16.8 (5-19) BUN 9 (8-23) mg/dL Creatinine 0.7 (0.5-0.9) mg/dL GFR Calculation Not Reportable Glucose 103 (65-115) mg/dL Calculated Osmolal ity 285 (285-295) mOsm/k g Lactic Acid (0.5-2.2) mmol/L Calcium 9.8 (8.5-10.5) mg/dL Total Bilirubin 0.3 (0.15-1.2) mg/dL AST 46 H (0-32) U/L ALT 25 (0-33) U/L Alkaline Phosphata se 163 H (35-105) IU/L Troponin T Baselin e (0-10) ng/L C-Reactive Protein 47.7 H (0.0-4.9) mg/L NT-Pro-B Natriuret Pep 923 H (0-125) pg/mL Total Protein 6.3 L (6.6-8.7) g/dL Albumin 3.4 L (3.5-5.2) g/dL Globulin 2.9 (1.3-4.6) g/dL Procalcitonin 0.15 (0-0.5) ng/mL SARS-CoV-2 Ag (Rap id) (Negative) 02/16/21 02/16/21 02/16/21 Range/Units 03:20 03:20 03:20 WBC (4.0-10.0) 10^3/ uL RBC (4.1-5.3) 10^6/u L Hgb (11.5-15.3) g/dL Hct (37.0-47.0) % MCV (81-99) fL MCH (28.0-34.0) pg MCHC (30.0-36.0) g/dL RDW (12.1-15.1) % Plt Count (130-400) 10^3/c mm MPV (7.4-10.4) fL Neut % (Auto) % Lymph % (Auto) % [place] % (Auto) % Eos % (Auto) % Baso % (Auto) % Neut # (Auto) (1.8-7.7) 10^3/u L Lymph # (Auto) (0.8-4.8) 10^3/u L [place] # (Auto) (0.2-0.9) 10^3/u L Eos # (Auto) (0.0-0.8) 10^3/u L Baso # (Auto) (0.0-0.1) 10^3/u L Nucleated RBC % (a uto) % Nucleated RBCs # /100WBC Specimen Type Sample Site ABG pH (7.35-7.45) ABG pCO2 (35-45) mmHg ABG pO2 (80.0-100.0) mmH g ABG HCO3 (22-26) mmol/L ABG Base Excess (-2.0-2.0) mmol/ L Reji Test Hematocrit (37-47) % Hgb O2 Saturation (95-100) % Carboxyhemoglobin (0.4-20.1) %THgb Methemoglobin (0.4-1.5) % Total Hemoglobin (12-16) g/dL O2 Delivery Device FiO2 % Financial Systems Analyst ID Sodium (136-145) mmol/L Potassium (3.5-5.1) mmol/L Chloride (98-107) mmol/L Carbon Dioxide (22-29) mmol/L Anion Gap (5-19) BUN (8-23) mg/dL Creatinine (0.5-0.9) mg/dL GFR Calculation Glucose (65-115) mg/dL Calculated Osmolal ity (285-295) mOsm/k g Lactic Acid 1.5 (0.5-2.2) mmol/L Calcium (8.5-10.5) mg/dL Total Bilirubin (0.15-1.2) mg/dL AST (0-32) U/L ALT (0-33) U/L Alkaline Phosphata se (35-105) IU/L Troponin T Baselin e 16 H (0-10) ng/L C-Reactive Protein (0.0-4.9) mg/L NT-Pro-B Natriuret Pep 827 H (0-125) pg/mL Total Protein (6.6-8.7) g/dL Albumin (3.5-5.2) g/dL Globulin (1.3-4.6) g/dL Procalcitonin 0.16 (0-0.5) ng/mL SARS-CoV-2 Ag (Rap id) (Negative) 02/16/21 02/16/21 Range/Units 07:14 07:40 WBC (4.0-10.0) 10^3/ uL RBC (4.1-5.3) 10^6/u L Hgb (11.5-15.3) g/dL Hct (37.0-47.0) % MCV (81-99) fL MCH (28.0-34.0) pg MCHC (30.0-36.0) g/dL RDW (12.1-15.1) % Plt Count (130-400) 10^3/c mm MPV (7.4-10.4) fL Neut % (Auto) % Lymph % (Auto) % [place] % (Auto) % Eos % (Auto) % Baso % (Auto) % Neut # (Auto) (1.8-7.7) 10^3/u L Lymph # (Auto) (0.8-4.8) 10^3/u L [place] # (Auto) (0.2-0.9) 10^3/u L Eos # (Auto) (0.0-0.8) 10^3/u L Baso # (Auto) (0.0-0.1) 10^3/u L Nucleated RBC % (a uto) % Nucleated RBCs # /100WBC Specimen Type Arterial Sample Site Brachial, left ABG pH 7.33 L (7.35-7.45) ABG pCO2 63.4 H* (35-45) mmHg ABG pO2 114.0 H (80.0-100.0) mmH g ABG HCO3 33.3 H (22-26) mmol/L ABG Base Excess 6.0 H (-2.0-2.0) mmol/ L Reji Test N/a Hematocrit 28.3 L (37-47) % Hgb O2 Saturation (95-100) % Carboxyhemoglobin (0.4-20.1) %THgb Methemoglobin (0.4-1.5) % Total Hemoglobin (12-16) g/dL O2 Delivery Device Bipap FiO2 50.0 % Financial Systems Analyst ID Ed Sodium (136-145) mmol/L Potassium (3.5-5.1) mmol/L Chloride (98-107) mmol/L Carbon Dioxide (22-29) mmol/L Anion Gap (5-19) BUN (8-23) mg/dL Creatinine (0.5-0.9) mg/dL GFR Calculation Glucose (65-115) mg/dL Calculated Osmolal ity (285-295) mOsm/k g Lactic Acid (0.5-2.2) mmol/L Calcium (8.5-10.5) mg/dL Total Bilirubin (0.15-1.2) mg/dL AST (0-32) U/L ALT (0-33) U/L Alkaline Phosphata se (35-105) IU/L Troponin T Baselin e (0-10) ng/L C-Reactive Protein (0.0-4.9) mg/L NT-Pro-B Natriuret Pep (0-125) pg/mL Total Protein (6.6-8.7) g/dL Albumin (3.5-5.2) g/dL Globulin (1.3-4.6) g/dL Procalcitonin (0-0.5) ng/mL SARS-CoV-2 Ag (Rap id) Negative (Negative) Imaging Data^: CXR: Radiologist's impression: XRay ReportSigned Patient: Whitney Dial #: [id number]: 1950cct#:[id number]/Sex: FAD Date: 02/16/21Loc: ERRoom/Bed:Attending Dr: Ordering Provider/Ordering MD: Chalo Miller DO Date of Service: 02/16/21 Procedure(s): XR chest 1V portable [id number] Accession Number(s): [id number] Report Number: [id number] PROCEDURE INFORMATION: Exam: XR Chest Exam date and time: 02/16/2021 3:11 AM Age: 70 years old Clinical indication: Dyspnea; Additional info: SOB TECHNIQUE: Imaging protocol: XR of the chest. Views: 1 view. 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 Lungs: Stable left hemithorax pleural thickening. Increased opacities in the left lung which may be secondary to pneumonia or neoplasm. Stable patchy opacity at the right lung base. Pleural spaces: See Lungs finding. Heart/Mediastinum: Unremarkable. No cardiomegaly. Bones/joints: Unremarkable. XR/XR chest 1V portable [id number] IMPRESSION: 1. Stable left hemithorax pleural thickening. 2. Increased opacities in the left lung which may be secondary to pneumonia or neoplasm. Dictated By:Blanca Walters By:Blanca Walters Date/Time:02/16/21 0510 CTA Chest: Radiologist's impression: CT Scan ReportSigned Patient: Whitney Dial #: [id number]: 1950cct#:[id number]/Sex: FAD Date: 02/16/21Loc: ERRoom/Bed:Attending Dr: Ordering Provider/Ordering MD: Ceferino Montes MD Date of Service: 02/16/21 Procedure(s): CT angio chest [id number] Accession Number(s): [id number] Report Number: [id number] PROCEDURE INFORMATION: Exam: CTA Chest With Contrast Exam date and time: 02/16/2021 6:48 AM Age: 70 years old Clinical indication: Shortness of breath; Additional info: Shortness of breath, R/O pulmonary embolus/ pe protocol; Respiratory to go with^patient to CT TECHNIQUE: Imaging protocol: Computed tomographic angiography of the chest with contrast. 3D rendering (Not supervised by radiologist): MIP and/or 3D reconstructed images were created by the technologist. Radiation optimization: All CT scans at this facility use at least one of these dose optimization techniques: automated exposure control; mA and/or kV adjustment per patient size (includes targeted exams where dose is matched to clinical indication); or iterative reconstruction. Contrast material: OMNI 350; Contrast volume: 74 ml; Contrast route: INTRAVENOUS (IV); COMPARISON: CT angio chest PE protcl [id number] 01/31/2021 4:36 PM RADIATION DOSE METRICS: Total DLP (mGy-cm): 565.15 FINDINGS: Pulmonary arteries: Normal. No pulmonary emboli. Aorta: Unremarkable. No aortic aneurysm. No aortic dissection. Lungs: Severe pulmonary emphysema is present with scattered fibrosis and bullous formation. Infiltration in the right middle lobe that was seen on the previous scan has improved. Basilar fibrosis, consolidation. and atelectasis is unchanged. Pleural spaces: There is prominent extensive nodular thickening of the entire left pleura which has not significantly changed since previous examination Heart: Unremarkable. No cardiomegaly. No pericardial effusion. Lymph nodes: There are multiple enlarged mediastinal and left pulmonary hilar lymph nodes which are stable. Bones/joints: Multiple compression fractures are present in the thoracic spine which are similar to old examination. Diffuse chronic degenerative changes are present with scattered sclerosis and osteophytes. Soft tissues: Unremarkable. CT/CT angio chest [id number] IMPRESSION: 1. No evidence of pulmonary embolus or aortic aneurysm/dissection. 2. Extensive lobulated circumferential pleural thickening around the left lung which can be seen with malignant mesothelioma. Correlation with previous biopsy results is advised. 3. Severe pulmonary emphysema and fibrosis. 4. Stable multiple thoracic compression fractures. 5. There is stable consolidation fibrosis and atelectasis in the lung bases. Infiltration in the right middle lobe seen on previous study has improved. Radiation Dose CTDIVOL = (mGy): DLP = 565.15 (mGy-cm) Dictated By:Chi SellersSigned By:Salomon Sellers Date/Time:02/16/21 0841 EKG Data^: EKG 1: Attestation: I personally reviewed and interpreted this EKG as follows: EKG Interpretation Date: 02/16/21 EKG interpretation time: 07:12 Prior EKG tracings: not available for review Interpretation: Sinus tachycardia with heart rate 122. Normal axis. Normal MI interval. Normal P wave, normal T wave, normal ST segment. Normal QT interval. Impression sinus tachycardia. Otherwise normal. Critical Care Time Critical Care Time: Critical Care Time: Yes Total Critical Care Time: 85 Attestation: bipap use; see orders Discharge Plan Discharge Patient Disposition: Placed in Observation Admit Provider: Al Ruvalcaba Clinical Impression: Anemia of chronic disease Pneumonia Qualifiers: Pneumonia type: due to unspecified organism Laterality: left Lung location: unspecified part of lung Qualified Code(s): J18.9 - Pneumonia, unspecified organism Respiratory failure Qualifiers: Chronicity: acute Respiratory failure complication: hypoxia Qualified Code(s): J96.01 - Acute respiratory failure with hypoxia Coding Level of Care Code ED Senior Courtroom Clerk for g Fwd Exam Detailed
[2021-02-16] MEDS: levofloxacin-dextrose 5 % 750 MG/150 ML PREMIX 100 MG IV (05:42)
--- NOTE | 2021-02-16 06:02 | PC.NURSE ---
pt spouse ph# [phone]. updated on pt transfer status
[2021-02-16] MEDS: LORazepam 2 mg/mL INJ 1 mL 0.5 MG IVP (06:30)
[2021-02-16] MEDS: sodium chloride 0.9% 1,000 ML 999 ML IV (06:32)
--- NOTE | 2021-02-16 06:48 | CTR_ITS ---
PROCEDURE INFORMATION: Exam: CTA Chest With Contrast Exam date and time: 02/16/2021 6:48 AM Age: 70 years old Clinical indication: Shortness of breath; Additional info: Shortness of breath, R/O pulmonary embolus/ pe protocol; Respiratory to go with^patient to CT TECHNIQUE: Imaging protocol: Computed tomographic angiography of the chest with contrast. 3D rendering (Not supervised by radiologist): MIP and/or 3D reconstructed images were created by the technologist. Radiation optimization: All CT scans at this facility use at least one of these dose optimization techniques: automated exposure control; mA and/or kV adjustment per patient size (includes targeted exams where dose is matched to clinical indication); or iterative reconstruction. Contrast material: OMNI 350; Contrast volume: 74 ml; Contrast route: INTRAVENOUS (IV); COMPARISON: CT angio chest PE protcl [id number] 01/31/2021 4:36 PM RADIATION DOSE METRICS: Total DLP (mGy-cm): 565.15 FINDINGS: Pulmonary arteries: Normal. No pulmonary emboli. Aorta: Unremarkable. No aortic aneurysm. No aortic dissection. Lungs: Severe pulmonary emphysema is present with scattered fibrosis and bullous formation. Infiltration in the right middle lobe that was seen on the previous scan has improved. Basilar fibrosis, consolidation. and atelectasis is unchanged. Pleural spaces: There is prominent extensive nodular thickening of the entire left pleura which has not significantly changed since previous examination Heart: Unremarkable. No cardiomegaly. No pericardial effusion. Lymph nodes: There are multiple enlarged mediastinal and left pulmonary hilar lymph nodes which are stable. Bones/joints: Multiple compression fractures are present in the thoracic spine which are similar to old examination. Diffuse chronic degenerative changes are present with scattered sclerosis and osteophytes. Soft tissues: Unremarkable. CT/CT angio chest [id number] IMPRESSION: 1. No evidence of pulmonary embolus or aortic aneurysm/dissection. 2. Extensive lobulated circumferential pleural thickening around the left lung which can be seen with malignant mesothelioma. Correlation with previous biopsy results is advised. 3. Severe pulmonary emphysema and fibrosis. 4. Stable multiple thoracic compression fractures. 5. There is stable consolidation fibrosis and atelectasis in the lung bases. Infiltration in the right middle lobe seen on previous study has improved. Radiation Dose CTDIVOL = (mGy): DLP = 565.15 (mGy-cm)
[2021-02-16] MEDS: vancomycin 1,000 MG in sodium chloride 0.9% 250 ML 250 MG IV (07:12)
[2021-02-16 07:23] LABS: ABG PH Result 7.33 (7.35-7.45); Arterial Blood Gas Hematocrit 28.3 % (37-47); Blood Gas Sample Type Arterial; HCO3 ABG 33.3 mmol/L (22-26)
[2021-02-16 07:25] LABS: Blood Gas Operator Identificat ED; Blood Gas Sample Site Brachial, left; Oxygen Device BIPAP
[2021-02-16] MEDS: iohexol 350 mg/mL 100 mL Btl IV (07:47)
[2021-02-16 08:17] LABS: SARS Covid-2 Antigen Negative (Negative)
--- NOTE | 2021-02-16 09:43 | PC.NURSE ---
updated transfer status with family via phone
[2021-02-16] MEDS: midazolam 1 mg/mL INJ 2 mL 0.25 MG IVP (09:56)
--- NOTE | 2021-02-16 11:23 | PC.NURSE ---
patient tolerated NC at this time.
[2021-02-16] MEDS: FUROsemide 10 mg/mL SDV 4mL 40 MG IVP (13:50)
--- NOTE | 2021-02-16 13:54 | PC.NURSE ---
attempted to call report, call back pending
[2021-02-16 13:57] LABS: ABG PCO2 63.4 mmHg (35-45)
[2021-02-16 14:08] LABS: NT Pro B Type Natriuretic Pept 827 pg/mL (0-125); Procalcitonin 0.16 ng/mL (0-0.5)
[2021-02-16] MEDS: fluconazole 100 mg Tablet 200 MG PO (14:56)
[2021-02-16] MEDS: benzonatate 100 mg Capsule PO ×2 (14:57→20:25)
[2021-02-16] MEDS: oxyCODONE-APAP 5-325 mg Tablet 1 TAB PO (15:15)
[2021-02-16] MEDS: ipratropium 0.5 mg/2.5 mL Neb INHALATION ×2 (16:11→20:28)
--- NOTE | 2021-02-16 16:44 | PM.HP ---
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 Patient was recently in hospital 2 weeks ago when she was transferred to [facility] for VATS procedure. During that admission patient underwent bronchoscopy and left lung/pleural biopsy. During that admission she underwent multiple infectious work-up. She was transferred to [facility] for VATS for a possible mesothelioma. Patient spent around 6 days at [facility] but did not get any surgical procedure and was treated with antibiotics. As per the patient and patient's at bedside she has been experiencing difficulty in breathing, wheeze, shortness of breath both at rest and exertion since her discharge. Her shortness of breath have been gradually getting worse and currently for last 2 days patient has been having difficulty in breathing even at rest. Symptoms are associated with pain in her back especially in the left side for which he is been taking Oxy alternating with tramadol every 2 hours. Patient has been in the ER since February 15 midnight. She has been accepted at [facility] again for further treatment but has not been transferred yet because of unavailability for bed. Medical team has been consulted for admission till the availability of bed. Patient has been on BiPAP since last night. On examination she is on 5 L nasal cannula saturating 94%, extremely tachypneic, in distress because of difficulty in breathing. Blood work in the ER showed a white count of 11.4, hemoglobin of 9.5, platelet count of 380, sodium 138, potassium 3.8, creatinine 0.7, AST/ALT of 46/25, alkaline phosphatase of 163, proBNP of 827, albumin of 3.4, rapid COVID-19 antigen negative. CTA chest was done with results as below. Review of Systems General: Reports: 10 or more systems reviewed and unremarkable except in HPI and below Const: Denies: fever(s), chills, body aches, change in appetite, change in weight, malaise, night sweats, diaphoresis, change in sleep pattern, daytime sleepiness or snoring Eyes: Denies: change in vision, blurry vision, photophobia, eye discomfort or eye discharge ENMT: Denies: throat pain, enlarged tonsils, hoarseness, mouth pain, oral sores, dry mouth, tinnitus, nasal congestion or post nasal drip Card: Denies: chest pain, palpitations, irregular heart rhythm, edema, swelling of feet/ankles, lightheadedness, syncope, pre-syncope, dyspnea on exertion, orthopnea, leg pain with exertion or acrocyanosis Resp: Denies: dyspnea, productive cough, non-productive cough, wheezing, stridor, pain on inspiration, change in phlegm color, hemoptysis or chest congestion GI: Denies: abdominal pain, nausea, vomiting, hematemesis, coffee ground emesis, dysphagia, heartburn, diarrhea, constipation, bloating, GI cramping, change in bowel habits, pain on defecation, hematochezia or melena : Denies: flank pain, dysuria, urinary frequency, urinary urgency, urinary hesitancy, nocturia or hematuria Musc: Denies: neck pain, back pain, extremity pain, joint pain, joint swelling, joint redness, joint stiffness or limited range of motion Neuro: Denies: headache(s), numbness in extremities, weakness in extremities, sensory changes, lack of coordination, difficulty walking, frequent falls, dizziness, vertigo, confusion, Slurred speech present, difficulty communicating thoughts or seizure-like activity Psych: Denies: anxiety, depression, mood swings, panic attacks, hopelessness or irritability Endo: Denies: polyuria, polydipsia, tired all the time, cold intolerance, excessive sweating, flushing or heat intolerance Rick/Lymph: Denies: easy bruising or easy bleeding All/Imm: Denies: tongue swelling, facial swelling or acute wheezing Medications/Allergies Home Medications Medication Instructions Recorded Confirmed Last Taken Type cyclobenzaprine 10 mg tablet 10 mg PO TID PRN 08/19/19 02/16/21 02/15/21 History folic acid 1 mg tablet 1 mg PO DAILY tab 08/19/19 02/16/21 08/19/20 History levetiracetam 500 mg tablet 500 mg PO BID 12/01/19 02/16/21 02/15/21 History ondansetron 4 mg disintegrating 4 mg PO DAILY 12/29/19 02/16/21 02/15/21 History tablet diclofenac sodium 2 gm TOPICAL QID PRN 03/17/20 02/16/21 02/15/21 History tramadol 50 mg PO BID PRN 03/17/20 02/16/21 08/19/20 History loperamide [Imodium A-D] 2 - 4 mg PO PRN 03/19/20 02/16/21 08/19/20 History sulfasalazine 500 mg tablet 1,000 mg PO BID #360 tab 08/01/20 02/16/21 02/15/21 Rx diphenoxylate-atropine [Lomotil] 1 tab PO Q6H PRN 08/15/20 02/16/21 08/19/20 History fluticasone fur. 100 mcg-umeclid 1 inh INHALATION DAILY 30 Days #60 12/25/20 02/16/21 02/15/21 Rx 62.5 mcg-vilant 25 mcg ea inhalat.powder Rub On Relief 1 applic TOPICAL PRN 01/31/21 02/16/21 02/15/21 History citalopram 10 mg PO BEDTIME 01/31/21 02/16/21 02/15/21 History duloxetine 60 mg PO BEDTIME 01/31/21 02/16/21 Unknown History ipratropium-albuterol See Rx Instructions .ROUTE .COMPLEX 01/31/21 02/16/21 02/15/21 History leflunomide 20 mg PO BEDTIME 01/31/21 02/16/21 02/15/21 History omeprazole 40 mg PO DAILY 01/31/21 02/16/21 02/15/21 History oxycodone-acetaminophen 1 tab PO Q4H PRN 01/31/21 02/16/21 02/15/21 History Heal And Soothe See Rx Instructions .ROUTE .COMPLEX 02/16/21 02/16/21 02/15/21 History 1 tab PO DAILY 02/16/21 02/16/21 02/15/21 History Pseudoephedrine Max Strength See Rx Instructions .ROUTE .COMPLEX 02/16/21 02/16/21 02/15/21 History guaifenesin [Mucinex] 1,200 mg PO Q12H 02/16/21 02/16/2121 History prednisone 40 mg PO DAILY 02/16/21 02/16/21 02/15/21 History Allergies Allergy/AdvReac Type Severity Reaction Status Date / Time Penicillins Allergy Severe anaphylaxis Verified 02/16/21 03:18 amoxicillin Allergy ALGY-Anaphy Verified 02/16/21 03:18 laxis egg yolk Allergy SWELLING Verified 02/16/21 03:18 Influenza Virus Vaccines Allergy SWELLING Verified 02/16/21 03:18 morphine Allergy unknown Verified 02/16/21 03:18 PFSH Acute PFSH: Medical History (Updated 02/16/21 @ 16:57 by Al Ruvalcaba MD) Cerebral aneurysm COPD (chronic obstructive pulmonary disease) exacerbation COVID-19 Emphysema of lung Fatigue High risk medication use Immunodeficiency secondary to chemotherapy Pleural effusion Rheumatoid arthritis with rheumatoid factor 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 systems involvement Surgical History H/O brain surgery x7 H/O esophagogastroduodenoscopy (08/20/20) H/O tubal ligation History of colonoscopy Family History Other CAD (coronary artery disease) Cancer Rheumatoid arthritis Stroke Denies family history of Diabetes Chronic kidney disease (CKD) Systemic lupus erythematosus (SLE) in adult Hypertension Social History Smoking and tobacco status: former smoker Quit status (tobacco): has quit using tobacco Year quit tobacco: 2004 - 1PPD x 50 Years Second hand smoke exposure: No Smoking risk assessment/counseling performed?: No Alcohol intake: never Lives independently: Yes Household members: spouse Marital status: Current occupational status: unemployed Pets and animals: Yes History of recent travel: No Current gender identity: Female Vitals/I&O/Wt Last Vital Signs Temp 98.0 F 02/16/21 03:12 Pulse 114 H 02/16/21 16:18 Resp 17 02/16/21 16:11 BP 132/82 02/16/21 14:09 Pulse Ox 94 02/16/21 16:11 02/16/21 02/16/21 02/16/21 06:59 14:59 22:59 Intake Total 1400 / 1400 Balance 1400 / 1400 Weight last 48 hrs Weight 68.039 kg Physical Exam Narrative: EXAM NARRATIVE: General: AOx3, in acute respiratory distress HEENT: PERRLA, pupils bilaterally equal and reactive Chest: Tachycardia, bronchial breath sounds all over the lung diego, coarse crackles present in the left lung, poor inspiratory effort CVS: S1-S2 regular, tachycardia, no gallops, no rubs Abdomen: Soft, nontender, no organomegaly, bowel sounds present Neuro: No focal deficits, no facial deformity, AO x3, power 5/5 in all limbs Data : 02/16/21 03:20 02/16/21 03:20 Other Labs: Laboratory Results WBC 11.4 10^3/uL (4.0-10.0) H 02/16/21 03:20 RBC 3.16 10^6/uL (4.1-5.3) L 02/16/21 03:20 Hgb 9.5 g/dL (11.5-15.3) L 02/16/21 03:20 Hct 31.4 % (37.0-47.0) L 02/16/21 03:20 MCV 99.4 fL (81-99) H 02/16/21 03:20 MCH 30.1 pg (28.0-34.0) 02/16/21 03:20 MCHC 30.3 g/dL (30.0-36.0) 02/16/21 03:20 RDW 15.8 % (12.1-15.1) H 02/16/21 03:20 Plt Count 380 10^3/cmm (130-400) 02/16/21 03:20 MPV 9.1 fL (7.4-10.4) 02/16/21 03:20 Neut % (Auto) 87.1 % 02/16/21 03:20 Lymph % (Auto) 6.2 % 02/16/21 03:20 [place] % (Auto) 4.7 % 02/16/21 03:20 Eos % (Auto) 1.1 % 02/16/21 03:20 Baso % (Auto) 0.7 % 02/16/21 03:20 Neut # (Auto) 9.89 10^3/uL (1.8-7.7) H 02/16/21 03:20 Lymph # (Auto) 0.7 10^3/uL (0.8-4.8) L 02/16/21 03:20 [place] # (Auto) 0.5 10^3/uL (0.2-0.9) 02/16/21 03:20 Eos # (Auto) 0.1 10^3/uL (0.0-0.8) 02/16/21 03:20 Baso # (Auto) 0.1 10^3/uL (0.0-0.1) 02/16/21 03:20 Nucleated RBC % (auto) 0 % 02/16/21 03:20 Nucleated RBCs # 0.0 /100WBC 02/16/21 03:20 Specimen Type Arterial 02/16/21 07:14 Sample Site Brachial, left 02/16/21 07:14 ABG pH 7.33 (7.35-7.45) L 02/16/21 07:14 ABG pCO2 63.4 mmHg (35-45) H* 02/16/21 07:14 ABG pO2 114.0 mmHg (80.0-100.0) H 02/16/21 07:14 ABG HCO3 33.3 mmol/L (22-26) H 02/16/21 07:14 ABG Base Excess 6.0 mmol/L (-2.0-2.0) H 02/16/21 07:14 Reji Test N/a 02/16/21 07:14 Hematocrit 28.3 % (37-47) L 02/16/21 07:14 Hgb O2 Saturation 97.8 % (95-100) 02/16/21 03:12 Carboxyhemoglobin < 0.0 %THgb (0.4-20.1) L 02/16/21 03:12 Methemoglobin 0.8 % (0.4-1.5) 02/16/21 03:12 Total Hemoglobin 11.1 g/dL (12-16) L 02/16/21 03:12 O2 Delivery Device Bipap 02/16/21 07:14 FiO2 50.0 % 02/16/21 07:14 Wood Crafter ID Ed 02/16/21 07:14 Sodium 138 mmol/L (136-145) 02/16/21 03:20 Potassium 3.8 mmol/L (3.5-5.1) 02/16/21 03:20 Chloride 97 mmol/L (98-107) L 02/16/21 03:20 Carbon Dioxide 28 mmol/L (22-29) 02/16/21 03:20 Anion Gap 16.8 (5-19) 02/16/21 03:20 BUN 9 mg/dL (8-23) 02/16/21 03:20 Creatinine 0.7 mg/dL (0.5-0.9) 02/16/21 03:20 GFR Calculation Not Reportable 02/16/21 03:20 Glucose 103 mg/dL (65-115) 02/16/21 03:20 Calculated Osmolality 285 mOsm/kg (285-295) 02/16/21 03:20 Lactic Acid 1.5 mmol/L (0.5-2.2) 02/16/21 03:20 Calcium 9.8 mg/dL (8.5-10.5) 02/16/21 03:20 Total Bilirubin 0.3 mg/dL (0.15-1.2) 02/16/21 03:20 AST 46 U/L (0-32) H 02/16/21 03:20 ALT 25 U/L (0-33) 02/16/21 03:20 Alkaline Phosphatase 163 IU/L (35-105) H 02/16/21 03:20 Troponin T Baseline 16 ng/L (0-10) H 02/16/21 03:20 C-Reactive Protein 47.7 mg/L (0.0-4.9) H 02/16/21 03:20 NT-Pro-B Natriuret Pep 827 pg/mL (0-125) H 02/16/21 03:20 NT-Pro-B Natriuret Pep 923 pg/mL (0-125) H 02/16/21 03:20 Total Protein 6.3 g/dL (6.6-8.7) L 02/16/21 03:20 Albumin 3.4 g/dL (3.5-5.2) L 02/16/21 03:20 Globulin 2.9 g/dL (1.3-4.6) 02/16/21 03:20 Procalcitonin 0.15 ng/mL (0-0.5) 02/16/21 03:20 Procalcitonin 0.16 ng/mL (0-0.5) 02/16/21 03:20 SARS-CoV-2 Ag (Rapid) Negative (Negative) 02/16/21 07:40 Impressions Chest X-Ray 02/16/21 03:11 IMPRESSION: 1. Stable left hemithorax pleural thickening. 2. Increased opacities in the left lung which may be secondary to pneumonia or neoplasm. Chest CTA 02/16/21 06:48 IMPRESSION: 1. No evidence of pulmonary embolus or aortic aneurysm/dissection. 2. Extensive lobulated circumferential pleural thickening around the left lung which can be seen with malignant mesothelioma. Correlation with previous biopsy results is advised. 3. Severe pulmonary emphysema and fibrosis. 4. Stable multiple thoracic compression fractures. 5. There is stable consolidation fibrosis and atelectasis in the lung bases. Infiltration in the right middle lobe seen on previous study has improved. Radiation Dose CTDIVOL = (mGy): DLP = 565.15 (mGy-cm) Bronchial lavage from January 31: Gram Stain Final 01/31/21-1416 Result FEW WHITE BLOOD CELLS RARE GRAM POSITIVE RODS RARE GRAM POSITIVE COCCI IN PAIRS & CLUSTERS Sputum Culture Final 02/06/21-1115 Organism 1 Zaina albicans Growth FEW Organism 2 Rothia mucilaginosa Growth SCANT Organism 3 Corynebacterium species Growth SCANT Organism 4 Streptococcus viridans Growth SCANT ISOLATE 2 & 3: SUSCEPTIBILITIES NOT ROUTINELY PERFORMED ON THESE ORGANISMS. [facility]AST SENT TO [facility] FOR SENSITIVITY TESTING, ORDERED MISCELLANEOUS TEST Str virid M.I.C. RX --------- ------ * Ampicillin <=0.06 S * Azithromycin <=0.25 S * Cefepime <=0.25 S * Ceftriaxone <=0.25 S * Clindamycin <=0.06 S * Erythromycin <=0.06 S * Levofloxacin <=0.25 S * Penicillin <=0.03 S * Tetracycline <=0.5 S Vancomycin <=0.12 S Pneumocystis PCR negative for bronchial lavage, Aspergillus antigen not detected both from sputum and bronchial lavage, Galactomannan negative, AFP negative. Fungitell positive from bronchoalveolar lavage. Micro: Microbiology 02/16/21 03:25 Blood Culture - Preliminary Blood SPECIMEN COLLECTED 02/16/21 03:20 Blood Culture - Preliminary Blood SPECIMEN COLLECTED A&P Assessment and plan (1) Respiratory failure: Status: Acute Qualifiers: Chronicity: acute Respiratory failure complication: hypoxia Qualified Code(s): J96.01 - Acute respiratory failure with hypoxia (2) Pneumonia: Status: Acute Qualifiers: Laterality: left Lung location: unspecified part of lung Pneumonia type: due to unspecified organism Qualified Code(s): J18.9 - Pneumonia, unspecified organism (3) COPD (chronic obstructive pulmonary disease): Status: Acute Additional A&P Information Respiratory failure: Most likely secondary to pneumonia, possible left lung mesothelioma in setting of COPD exacerbation. ABG done earlier in the day shows a pH of 7.3, PCO2 63, PO2 of 114 on 50% BiPAP. Currently on 5 L nasal cannula. Oxygen supplementation giving saturation over 88%. Recent sputum culture and bronchial lavage consistent with strep viridans, Zaina. Also growing Corynebacterium. Fungitell from bronchial lavage positive but P MARLENE PCR was negative. Most likely positive from Zaina albicans. Patient also underwent left lung biopsy. Pathology showing atypical cells though the results were not complete as the sample was contaminated and needed additional testing which is still pending. Patient has been accepted at [facility] for possible VATS. Awaiting bed. Check urine Legionella, bacterial antigen, sputum culture, blood culture, urinalysis, ESR, CRP, MRSA swab. IV Lasix 40 mg stat. IV Solu-Medrol 125 mg stat followed by 60 every 8 hourly. Budesonide twice daily, ipratropium, Xopenex every 4 hours. Pulmonary toilet with incentive spirometry. Continue with Mucinex p.o. every 12. Start patient on vancomycin, imipenem as per creatinine clearance. Start patient on Diflucan 200 mg daily. Check echocardiogram. Continue other chronic medications including Celexa, Keppra 500 twice daily, pantoprazole, tramadol as needed. CODE STATUS: Allow natural . CODE STATUS confirmed with patient and patient's at bedside. GI soft diet. Heparin 5000 every 12 hourly for DVT prophylaxis. Admit to [facility]SU. Attestations Medical Necessity Statement*: Admission for more than 2 midnights for respiratory failure secondary to pneumonia, possible left lung mesothelioma in setting of COPD exacerbation. Time Spent in Patient Care: Greater than 35 minutes (>than 50% of time spent in counselling and/or direct pt care on unit). Coding Level of Care Code Acute Solder Technician for Miri Valerio Diagnoses Respiratory failure J96.01 Chronicity: acute Respiratory failure complication: hypoxia Pneumonia J18.9 Laterality: left Lung location: unspecified part of lung Pneumonia type: due to unspecified organism COPD (chronic obstructive pulmonary disease) J44.9
[2021-02-16 17:16] LABS: ABG PCO2 59.1 mmHg (35-45); ABG PH Result 7.39 (7.35-7.45); Alveolar-Arterial Oxygen Gradi 17.9 mmHg (5-10); Base Excess ABG 9.5 mmol/L (-2.0-2.0); Blood Gas Operator Identificat ED; Blood Gas Sample Site Brachial, left; Blood Gas Sample Type Arterial; Carboxyhemoglobin 0.5 %THgb (0.4-20.1); HGB O2 Sat 93.7 % (95-100); Ionized Calcium Level - ABG 1.3 mmol/L (1.1-1.4); Methemoglobin 1.1 % (0.4-1.5); Oxygen Device NC; Oxygen Saturation ABG 95.2; PO2 ABG 76.3 mmHg (80.0-100.0); Potassium Level - ABG 3.4 mmol/L (3.5-5.0); Total Hemoglobin 9.8 g/dL (12-16)
[2021-02-16] MEDS: guaiFENesin 600 mg Tablet 1200 MG PO (17:42)
[2021-02-16] MEDS: heparin 5,000 unit/mL INJ 1 mL 5000 UNIT SUBCUT (17:42)
[2021-02-16] MEDS: levETIRAcetam 500 mg Tablet PO (17:42)
[2021-02-16] MEDS: metoprolol tartrate 25 mg Tablet 12.5 MG PO (18:01)
--- NOTE | 2021-02-16 19:58 | PC.NURSE ---
Received report from MARLA Delgado. Patient lying in bed. Patient is extremely short of breath during speech and must whisper. Instructed patient on need for law catheter placement. Patient acknowledged understanding.
[2021-02-16] MEDS: morphine 4 mg/mL SDV 1 mL 1 MG IVP (20:24)
[2021-02-16] MEDS: citalopram 20 mg Tablet 10 MG PO (20:25)
[2021-02-16] MEDS: duloxetine 60 mg Capsule PO (20:25)
[2021-02-16] MEDS: budesonide 0.5 mg/2 mL Neb INHALATION (20:28)
[2021-02-16 20:57] LABS: Add Urine Microscopic? NO; Charge for UA Resulting for Rev
[2021-02-16 21:05] LABS: Bilirubin Urine Neg (Negative); Blood Urine Neg (Negative); Glucose Urine UA Norm (Normal); Ketones Urine Negative (Negative); Leukocyte Esterase Urine Negative (Negative); Nitrate Urine Negative (Negative); Protein Urine Neg (Negative); Specific Gravity, Urine 1.005 (1.005-1.030); Urine Appearance Clear (CLEAR); Urine Color Yellow (Yellow); Urobilinogen Urine Norm (Negative); pH Urine 7 (5-7)
--- NOTE | 2021-02-16 23:28 | PC.NUTR ---
NUTR TRIGGER: Consult trigger. Unable to identify source for trigger. Will cont to monitor progress and assess when appropriate.
[2021-02-17 00:40] VITALS: PULSE 88; RESP 16; O2SAT 95
[2021-02-17] MEDS: ipratropium 0.5 mg/2.5 mL Neb INHALATION (00:40)
[2021-02-17 00:46] VITALS: PULSE 89
[2021-02-17] MEDS: vancomycin 1,000 MG in sodium chloride 0.9% 250 ML 250 MG IV (01:24)
--- NOTE | 2021-02-17 02:03 | PC.NURSE ---
Patient transferred to [place], [place]. Report called to MARLA Jacob. Dr Annabel Bauman accepting at [facility]. Patient currently resting easy on 5L NC with SpO2 at 95%.
[2021-02-17 02:08] VITALS: BP 97/56; PULSE 89
--- NOTE | 2021-02-17 07:59 | PM.TDS ---
Transfer Summary Providers Date of Admission: 02/16/21 13:03 Date of Discharge: 02/17/21 Attending Provider at Admission: Al Ruvalcaba MD Attending Provider at Transfer: Al Ruvalcaba MD Primary Care Provider: Cornel Hu DO Anticipated Date of Transfer: Anticipated date of transfer: 02/17/21 Receiving Facility & Provider: Receiving Provider: [[facility]] Receiving facility: [] Diagnoses at Discharge Discharge Diagnosis (1) Respiratory failure: Status: Acute Qualifiers: Chronicity: acute Respiratory failure complication: hypoxia Qualified Code(s): J96.01 - Acute respiratory failure with hypoxia (2) Pneumonia: Status: Acute Qualifiers: Laterality: left Lung location: unspecified part of lung Pneumonia type: due to unspecified organism Qualified Code(s): J18.9 - Pneumonia, unspecified organism (3) COPD (chronic obstructive pulmonary disease): Status: Acute Reason for Visit Reason for Visit: resp distress Hospital Course Hospital Course Whitney Dial is a 70 year old female past medical history COPD, rheumatoid arthritis on Actemra, leflunomide, sulfasalazine, COVID-04 April 2020; 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 Patient was recently in hospital 2 weeks ago when she was transferred to [facility] for VATS procedure. During that admission patient underwent bronchoscopy and left lung/pleural biopsy. During that admission she underwent multiple infectious work-up. She was transferred to [facility] for VATS for a possible mesothelioma. Patient spent around 6 days at [facility] but did not get any surgical procedure and was treated with antibiotics. As per the patient and patient's at bedside she has been experiencing difficulty in breathing, wheeze, shortness of breath both at rest and exertion since her discharge. Her shortness of breath have been gradually getting worse and currently for last 2 days patient has been having difficulty in breathing even at rest. Symptoms are associated with pain in her back especially in the left side for which he is been taking Oxy alternating with tramadol every 2 hours. Presented to hospital while she was awaiting bed at [facility]. She started on broad-spectrum antibiotics, [id number] nebulization and IV steroids. Patient's hospital stay was critical but unremarkable. She was transferred before I could see her at around 2 AM once a bed was available. Physical Exam Urinary Catheter Management^: Yusuf: Cath Placed During This Visit: yes Reason for Continuing Indwelling Catheter: Accurate Measurement of Urinary Output in Critically Ill Patients Urinary Catheter Date of Insertion: 02/16/21 Urinary Catheter Time of Insertion: 20:49 TS Data Data Completed and Pending: Completed Studies During Hospitalization Category Date Time Status CT angio chest 71 275 Urgent Cat Scan 02/16/21 06:48 Completed XR chest 1V sunil ble [id number] Urgent Exams 02/16/21 03:11 Completed Pending at discharge Category Date Time Status Bacterial Antigen Stat Lab 02/16/21 20:22 Received Blood Culture Sta t Lab 02/16/21 03:25 Results MRSA by PCR Routi ne Lab 02/16/21 18:00 Received Labs from last 24 hours 02/16/21 02/16/21 02/16/21 20:22 16:55 07:40 Specimen Type Arterial Sample Site Brachial, left ABG pH 7.39 ABG pCO2 59.1 H ABG pO2 76.3 L ABG HCO3 36.0 H ABG O2 Saturation 95.2 ABG Base Excess 9.5 H Reji Test N/a A-a O2 Gradient 17.9 H Hematocrit 30.0 L Hgb O2 Saturation 93.7 L Carboxyhemoglobin 0.5 Methemoglobin 1.1 Total Hemoglobin 9.8 L Sodium 141.0 Potassium 3.4 L Glucose 109.0 Ionized Calcium 1.3 O2 Delivery Device Nc O2 Liters/Min 5.0 FiO2 40.0 Sample Shoe Inspector And Reworker ID Ed [id number]-Pro-B Natriuret Pep Procalcitonin Urine Color Yellow Urine Appearance Clear Urine pH 7 Ur Specific Gravit y 1.005 Urine Protein Neg Urine Glucose (UA) Norm Urine Ketones Negative Urine Blood Neg Urine Nitrate Negative Urine Bilirubin Neg Urine Urobilinogen Norm Ur Leukocyte Genesis ase Negative SARS-CoV-2 Ag (Rap id) Negative 02/16/21 02/16/21 07:14 03:20 Specimen Type Arterial Sample Site Brachial, left ABG pH 7.33 L ABG pCO2 63.4 H* ABG pO2 114.0 H ABG HCO3 33.3 H ABG O2 Saturation ABG Base Excess 6.0 H Reji Test N/a A-a O2 Gradient Hematocrit 28.3 L Hgb O2 Saturation Carboxyhemoglobin Methemoglobin Total Hemoglobin Sodium Potassium Glucose Ionized Calcium O2 Delivery Device Bipap O2 Liters/Min FiO2 50.0 Sample Shoe Inspector And Reworker ID Ed [id number]-Pro-B Natriuret Pep 827 H Procalcitonin 0.16 Urine Color Urine Appearance Urine pH Ur Specific Gravit y Urine Protein Urine Glucose (UA) Urine Ketones Urine Blood Urine Nitrate Urine Bilirubin Urine Urobilinogen Ur Leukocyte Genesis ase SARS-CoV-2 Ag (Rap id) Addt'l Data from Hospital Stay: Laboratory Results WBC 11.4 10^3/uL (4.0 -10.0) H 02/16/21 03:20 RBC 3.16 10^6/uL (4.1 -5.3) L 02/16/21 03:20 Hgb 9.5 g/dL (11.5-15 .3) L 02/16/21 03:20 Hct 31.4 % (37.0-47.0 ) L 02/16/21 03:20 MCV 99.4 fL (81-99) H 02/16/21 03:20 MCH 30.1 pg (28.0-34. 0) 02/16/21 03:20 MCHC 30.3 g/dL (30.0-3 6.0) 02/16/21 03:20 RDW 15.8 % (12.1-15.1 ) H 02/16/21 03:20 Plt Count 380 10^3/cmm (130 -400) 02/16/21 03:20 MPV 9.1 fL (7.4-10.4) 02/16/21 03:20 Neut % (Auto) 87.1 % 02/16/21 03:20 Lymph % (Auto) 6.2 % 02/16/21 03:20 Nicol[place] % (Auto) 4.7 % 02/16/21 03:20 Eos % (Auto) 1.1 % 02/16/21 03:20 Baso % (Auto) 0.7 % 02/16/21 03:20 Neut # (Auto) 9.89 10^3/uL (1.8 -7.7) H 02/16/21 03:20 Lymph # (Auto) 0.7 10^3/uL (0.8- 4.8) L 02/16/21 03:20 Nicol[place] # (Auto) 0.5 10^3/uL (0.2- 0.9) 02/16/21 03:20 Eos # (Auto) 0.1 10^3/uL (0.0- 0.8) 02/16/21 03:20 Baso # (Auto) 0.1 10^3/uL (0.0- 0.1) 02/16/21 03:20 Nucleated RBC % (a uto) 0 % 02/16/21 03:20 Nucleated RBCs # 0.0 /100WBC 02/16/21 03:20 Specimen Type Arterial 02/16/21 16:55 Sample Site Brachial, left 02/16/21 16:55 ABG pH 7.39 (7.35-7.45) 02/16/21 16:55 ABG pCO2 59.1 mmHg (35-45) H 02/16/21 16:55 ABG pO2 76.3 mmHg (80.0-1 00.0) L 02/16/21 16:55 ABG HCO3 36.0 mmol/L (22-2 6) H 02/16/21 16:55 ABG O2 Saturation 95.2 02/16/21 16:55 ABG Base Excess 9.5 mmol/L (-2.0- 2.0) H 02/16/21 16:55 Reji Test N/a 02/16/21 16:55 A-a O2 Gradient 17.9 mmHg (5-10) H 02/16/21 16:55 Hematocrit 30.0 % (37-47) L 02/16/21 16:55 Hgb O2 Saturation 93.7 % (95-100) L 02/16/21 16:55 Carboxyhemoglobin 0.5 %THgb (0.4-20 .1) 02/16/21 16:55 Methemoglobin 1.1 % (0.4-1.5) 02/16/21 16:55 Total Hemoglobin 9.8 g/dL (12-16) L 02/16/21 16:55 Sodium 141.0 mmol/L (131 -143) 02/16/21 16:55 Potassium 3.4 mmol/L (3.5-5 .0) L 02/16/21 16:55 Glucose 109.0 mg/dL (70-1 15) 02/16/21 16:55 Ionized Calcium 1.3 mmol/L (1.1-1 .4) 02/16/21 16:55 O2 Delivery Device Nc 02/16/21 16:55 O2 Liters/Min 5.0 % 02/16/21 16:55 FiO2 40.0 % 02/16/21 16:55 Sample Shoe Inspector And Reworker ID Ed 02/16/21 16:55 Sodium 138 mmol/L (136-1 45) 02/16/21 03:20 Potassium 3.8 mmol/L (3.5-5 .1) 02/16/21 03:20 Chloride 97 mmol/L (98-107 ) L 02/16/21 03:20 Carbon Dioxide 28 mmol/L (22-29) 02/16/21 03:20 Anion Gap 16.8 (5-19) 02/16/21 03:20 BUN 9 mg/dL (8-23) 02/16/21 03:20 Creatinine 0.7 mg/dL (0.5-0. 9) 02/16/21 03:20 GFR Calculation Not Reportable 02/16/21 03:20 Glucose 103 mg/dL (65-115 ) 02/16/21 03:20 Calculated Osmolal ity 285 mOsm/kg (285- 295) 02/16/21 03:20 Lactic Acid 1.5 mmol/L (0.5-2 .2) 02/16/21 03:20 Calcium 9.8 mg/dL (8.5-10 .5) 02/16/21 03:20 Total Bilirubin 0.3 mg/dL (0.15-1 .2) 02/16/21 03:20 AST 46 U/L (0-32) H 02/16/21 03:20 ALT 25 U/L (0-33) 02/16/21 03:20 Alkaline Phosphata se 163 IU/L (35-105) H 02/16/21 03:20 Troponin T Baselin e 16 ng/L (0-10) H 02/16/21 03:20 C-Reactive Protein 47.7 mg/L (0.0-4. 9) H 02/16/21 03:20 NT-Pro-B Natriuret Pep 827 pg/mL (0-125) H 02/16/21 03:20 NT-Pro-B Natriuret Pep 923 pg/mL (0-125) H 02/16/21 03:20 Total Protein 6.3 g/dL (6.6-8.7 ) L 02/16/21 03:20 Albumin 3.4 g/dL (3.5-5.2 ) L 02/16/21 03:20 Globulin 2.9 g/dL (1.3-4.6 ) 02/16/21 03:20 Procalcitonin 0.15 ng/mL (0-0.5 ) 02/16/21 03:20 Procalcitonin 0.16 ng/mL (0-0.5 ) 02/16/21 03:20 Urine Color Yellow (Yellow) 02/16/21 20:22 Urine Appearance Clear (CLEAR) 02/16/21 20:22 Urine pH 7 (5-7) 02/16/21 20:22 Ur Specific Gravit y 1.005 (1.005-1.0 30) 02/16/21 20:22 Urine Protein Neg (Negative) 02/16/21 20:22 Urine Glucose (UA) Norm (Normal) 02/16/21 20:22 Urine Ketones Negative (Negati ve) 02/16/21 20:22 Urine Blood Neg (Negative) 02/16/21 20:22 Urine Nitrate Negative (Negati ve) 02/16/21 20:22 Urine Bilirubin Neg (Negative) 02/16/21 20:22 Urine Urobilinogen Norm mg/dL (Negat daniel) 02/16/21 20:22 Ur Leukocyte Genesis ase Negative (Negati ve) 02/16/21 20:22 SARS-CoV-2 Ag (Rap id) Negative (Negati ve) 02/16/21 07:40 Impressions Chest X-Ray 02/16/21 03:11 IMPRESSION: 1. Stable left hemithorax pleural thickening. 2. Increased opacities in the left lung which may be secondary to pneumonia or neoplasm. Chest CTA 02/16/21 06:48 IMPRESSION: 1. No evidence of pulmonary embolus or aortic aneurysm/dissection. 2. Extensive lobulated circumferential pleural thickening around the left lung which can be seen with malignant mesothelioma. Correlation with previous biopsy results is advised. 3. Severe pulmonary emphysema and fibrosis. 4. Stable multiple thoracic compression fractures. 5. There is stable consolidation fibrosis and atelectasis in the lung bases. Infiltration in the right middle lobe seen on previous study has improved. Radiation Dose CTDIVOL = (mGy): DLP = 565.15 (mGy-cm) Microbiology 02/16/21 03:25 Blood Blood Culture - Preliminary NEGATIVE TO DATE 02/16/21 03:20 Blood Blood Culture - Preliminary NEGATIVE TO DATE 02/16/21 20:22 Urine,Voided Legionella Urinary Antigen - Final Vitals: Last Vital Signs Temp 98.7 F 02/16/21 19:31 Pulse 89 02/17/21 02:08 Resp 16 02/17/21 00:40 BP 97/56 02/17/21 02:08 Pulse Ox 95 02/17/21 00:40 TS Medications Medications Home Medications cyclobenzaprine 10 mg tablet 10 mg PO TID PRN 08/19/19 [History Confirmed 02/16/21] folic acid 1 mg tablet 1 mg PO DAILY tab 08/19/19 [History Confirmed 02/16/21] levetiracetam 500 mg tablet 500 mg PO BID 12/01/19 [History Confirmed 02/16/21] ondansetron 4 mg disintegrating tablet 4 mg PO DAILY 12/29/19 [History Confirmed 02/16/21] diclofenac sodium 2 gm TOPICAL QID PRN 03/17/20 [History Confirmed 02/16/21] tramadol 50 mg PO BID PRN 03/17/20 [History Confirmed 02/16/21] loperamide [Imodium A-D] 2 - 4 mg PO PRN 03/19/20 [History Confirmed 02/16/21] sulfasalazine 500 mg tablet 1,000 mg PO BID #360 tab 08/01/20 [Rx Confirmed 02/16/21] diphenoxylate-atropine [Lomotil] 1 tab PO Q6H PRN 08/15/20 [History Confirmed 02/16/21] fluticasone fur. 100 mcg-umeclid 62.5 mcg-vilant 25 mcg inhalat.powder 1 inh INHALATION DAILY 30 Days #60 ea 12/25/20 [Rx Confirmed 02/16/21] Rub On Relief 1 applic TOPICAL PRN 01/31/21 [History Confirmed 02/16/21] citalopram 10 mg PO BEDTIME 01/31/21 [History Confirmed 02/16/21] duloxetine 60 mg PO BEDTIME 01/31/21 [History Confirmed 02/16/21] ipratropium-albuterol See Rx Instructions .ROUTE .COMPLEX 01/31/21 [History Confirmed 02/16/21] leflunomide 20 mg PO BEDTIME 01/31/21 [History Confirmed 02/16/21] omeprazole 40 mg PO DAILY 01/31/21 [History Confirmed 02/16/21] oxycodone-acetaminophen 1 tab PO Q4H PRN 01/31/21 [History Confirmed 02/16/21] Heal And Soothe See Rx Instructions .ROUTE .COMPLEX 02/16/21 [History Confirmed 02/16/21] 1 tab PO DAILY 02/16/21 [History Confirmed 02/16/21] Pseudoephedrine Max Strength See Rx Instructions .ROUTE .COMPLEX 02/16/21 [History Confirmed 02/16/21] guaifenesin [Mucinex] 1,200 mg PO Q12H 02/16/21 [History Confirmed 02/16/21] prednisone 40 mg PO DAILY 02/16/21 [History Confirmed 02/16/21] Discharge Plan Discharge Patient Disposition: Xfer Short-Term Hosp Condition: Serious Prescriptions: No Action cyclobenzaprine 10 mg tablet 10 mg PO TID PRN (Reason: Muscle Spasm) RF: 0 folic acid 1 mg tablet 1 mg PO DAILY RF: 0 levetiracetam [Keppra] 500 mg tablet 500 mg PO BID RF: 0 ondansetron 4 mg tablet,disintegrating 4 mg PO DAILY RF: 0 sulfasalazine 500 mg tablet 1,000 mg PO BID Qty: 360 RF: 1 Hold Instructions: Doctor's Order Trelegy Ellipta 100-62.5-25 mcg blister with device 1 inh inhalation DAILY 30 Days Qty: 60 RF: 3 tramadol 50 mg Tablet 50 mg PO BID PRN (Reason: Pain) RF: 0 diclofenac sodium 1 % gel 2 gm TOPICAL QID PRN (Reason: Pain) RF: 0 loperamide [Imodium A-D] 2 mg Tablet 2 - 4 mg PO PRN RF: 0 citalopram 10 mg tablet 10 mg PO BEDTIME RF: 0 duloxetine 60 mg capsule,delayed release(DR/EC) 60 mg PO BEDTIME RF: 0 ipratropium-albuterol 0.5 mg-3 mg(2.5 mg base)/3 mL solution for nebulization See Rx Instructions .ROUTE .COMPLEX RF: 0 omeprazole 40 mg capsule,delayed release(DR/EC) 40 mg PO DAILY RF: 0 oxycodone-acetaminophen 5-325 mg tablet 1 tab PO Q4H PRN (Reason: Pain) RF: 0 Rub On Relief 1 applic topical PRN RF: 0 leflunomide 20 mg tablet 20 mg PO BEDTIME RF: 0 Hold Instructions: Doctor's Order prednisone 20 mg tablet 40 mg PO DAILY RF: 0 1 tab PO DAILY RF: 0 Mucinex 1,200 mg Tablet Extended Release 12hr 1,200 mg PO Q12H RF: 0 Heal And Soothe See Rx Instructions .ROUTE .COMPLEX RF: 0 Pseudoephedrine Max Strength See Rx Instructions .ROUTE .COMPLEX RF: 0 diphenoxylate-atropine [Lomotil] 2.5-0.025 mg Tablet 1 tab PO Q6H PRN (Reason: Diarrhea) RF: 0 Discharge Orders: Discharge Order (Routine); Ordered 02/17/21 Ordered By: Al Ruvalcaba Referrals: Cornel Hu DO [Primary Care Provider] - Discharge Diet: Advance as tolerated Discharge Activity: Resume usual activity and Increase activity as tolerated Patient Instructions: Opioid Safety Transfer Attestations Time Spent in Transfer Care*: greater than 30 min Specific Discharge Activities: Specific discharge activities: educating patient, educating and/or supporting family/caregiver, discussing with senior case manager/social workers/dc planners, documenting/other paperwork and evaluating patient/reviewing data Status at Transfer: Cognitive status at transfer: cognitively intact, Behavioral status at transfer: cooperative, Functional status at transfer: uses cane/walker Overall status at transfer: patient is not back to baseline Quality Metrics Clinical Quality Measures: During this hospital stay, did patient experience: None Coding Level of Care Code Acute Learning Disabilities Teacher for [facility] Fwd Diagnoses Respiratory failure J96.01 Chronicity: acute Respiratory failure complication: hypoxia Pneumonia J18.9 Laterality: left Lung location: unspecified part of lung Pneumonia type: due to unspecified organism COPD (chronic obstructive pulmonary disease) J44.9
--- NOTE | 2021-02-21 07:22 | PC.RESP ---
PULMONARY REHAB INFORMATION SENT TO PATIENT.
== END 2021-02-17 02:09 | disposition short-term general hospital (02) | DRG 189 ==
LOC: ER 13:02 → CSU 22:22
PROVIDERS: Emergency Medicine; Admitting Provider Student in an Organized Health Care Education/Training Program; Emergency Provider Family Medicine; PCP Internal Medicine; Visit Provider Student in an Organized Health Care Education/Training Program
DX: J96.01 Acute respiratory failure with hypoxia (principal); J18.9 Pneumonia, unspecified organism; E87.2 Acidosis; J43.9 Emphysema, unspecified; M06.9 Rheumatoid arthritis, unspecified; Z79.899 Other long term (current) drug therapy; Z86.16 Personal history of COVID-19; Z87.891 Personal history of nicotine dependence; C45.7 Mesothelioma of other sites; Z66 Do not resuscitate; M54.9 Dorsalgia, unspecified; Z79.891 Long term (current) use of opiate analgesic; R00.0 Tachycardia, unspecified; Z88.0 Allergy status to penicillin
CPT/HCPCS: 36600; 51702; 71045; 71275; 80051; 80053; 81003; 82330; 82803; 82805; 83605; 83880; 84145; 84484; 85025; 86140; 86403; 87040; 87426; 87449; 87641; 93005; 94640; 94660; 94664; 96365; 96367; 96372; 96375; 96376; 99291; J0743; J1644; J1940; J1956; J2060; J2250; J2270; J2405; J2930; J3370; J7030; J7050; J7626; J7644; Q9967